=== PATIENT | male | born 1945 | race Caucasian/White ===

== ENCOUNTER 2020-02-24 13:45 | Outpatient (REF) | payer MEDICARE, SELFPAY | END 2020-02-24 13:46 | disposition home or self-care (01) | LOC: HO.LAB 13:45 | PROVIDERS: PCP Internal Medicine; Visit Provider Internal Medicine | DX: Z20.828 Contact with and (suspected) exposure to other viral communicable diseases (principal) | CPT/HCPCS: C9803; U0003 ==

== ENCOUNTER 2020-03-20 13:09 | Outpatient (REF) | payer MEDICARE, SELFPAY | END 2020-03-20 13:10 | disposition home or self-care (01) | LOC: HO.HMGCLDS 13:09 | PROVIDERS: PCP Internal Medicine; Visit Provider Internal Medicine | DX: Z20.828 Contact with and (suspected) exposure to other viral communicable diseases (principal) | CPT/HCPCS: C9803; U0003 ==

== ENCOUNTER → 2020-06-13 07:58 | Outpatient (BNVA) | payer MEDICARE, SELFPAY | PROVIDERS: Visit Provider Orthopaedic Surgery | DX: M25.512 Pain in left shoulder (principal) | CPT/HCPCS: 20610; 99212; J1040 ==

== ENCOUNTER 2020-06-20 06:55 | Outpatient (REF) | payer MEDICARE, SELFPAY ==
[2020-06-20 12:16] LABS: Prostate Specific Antigen 0.79 ng/mL (<0.05-4.0)
[2020-06-20 12:23] LABS: Alanine Aminotransferase 18 U/L (0-40); Anion Gap 15 (12-20); Aspartate Amino Transferase 19 U/L (5-37); Blood Urea Nitrogen 19 mg/dL (9-16); Calcium 8.7 mg/dL (8.4-10.2); Carbon Dioxide 26 mmol/L (22-29); Chloride 104 mmol/L (96-108); Cholesterol 216 mg/dL; Estimated Glomerular Filt Rate > 60; Glucose Fasting 76 mg/dL (60-99); HDL Cholesterol 69 mg/dL; LDL Cholesterol Calculated 135 mg/dl; Potassium 4.9 mmol/L (3.3-5.1); Sodium 140 mmol/L (135-145); Triglycerides 63 mg/dL
== END 2020-06-20 06:56 | disposition home or self-care (01) ==
LOC: HO.HMGCLDS 06:55
PROVIDERS: PCP Internal Medicine; Visit Provider Internal Medicine
DX: E78.5 Hyperlipidemia, unspecified (principal); J45.20 Mild intermittent asthma, uncomplicated; I10 Essential (primary) hypertension; Z12.5 Encounter for screening for malignant neoplasm of prostate
CPT/HCPCS: 36415; 80048; 80061; 84153; 84450; 84460

== ENCOUNTER → 2020-10-03 10:04 | Outpatient (BNVA) | payer MEDICARE, SELFPAY | PROVIDERS: PCP Internal Medicine; Visit Provider Orthopaedic Surgery | DX: M54.12 Radiculopathy, cervical region (principal) | CPT/HCPCS: 99212 ==

== ENCOUNTER → 2020-10-27 08:07 | Outpatient (BNVA) | payer MEDICARE, SELFPAY | PROVIDERS: Visit Provider Orthopaedic Surgery | DX: M75.41 Impingement syndrome of right shoulder (principal) | CPT/HCPCS: 20610; 99212; J1040 ==

== ENCOUNTER 2021-01-01 08:04 | Outpatient (REF) | payer MEDICARE, SELFPAY ==
--- NOTE | ~2021-01-01 | XR_ITS ---
EXAMINATION: XR SHOULDER, RIGHT CLINICAL INFORMATION: Pain COMPARISON: Previous x-ray April 2017 TECHNIQUE: Three views of the right shoulder. FINDINGS: The bones and soft tissues are normal. No fracture. Glenohumeral and acromioclavicular alignment is anatomic with normal joint space. No abnormal soft tissue calcifications. XR/XR shoulder RT min 2V IMPRESSION: Normal right shoulder.
== END 2021-01-01 08:05 | disposition home or self-care (01) ==
LOC: HO.HOSX 08:04
PROVIDERS: PCP Internal Medicine; Visit Provider Orthopaedic Surgery
DX: M12.811 Other specific arthropathies, not elsewhere classified, right shoulder (principal); M54.2 Cervicalgia; M54.9 Dorsalgia, unspecified; Z87.891 Personal history of nicotine dependence
CPT/HCPCS: 73030; 99212

== ENCOUNTER 2021-01-04 08:51 | Outpatient (REF) | payer MEDICARE, SELFPAY ==
--- NOTE | ~2021-01-04 | MR_ITS ---
EXAMINATION: MR SHOULDER WITHOUT CONTRAST, RIGHT CLINICAL INFORMATION: History of right shoulder pain. Prior shoulder surgery. COMPARISON: Shoulder MRI from 05/18/2014. TECHNIQUE: MRI of the shoulder without contrast was performed on a high-field 1.5 Madeline scanner. FINDINGS: ROTATOR CUFF: Some of the imaging sequences are motion degraded. Compared to prior MRI of 05/18/2014, there has been worsening of the supraspinatus tendon tear, which is now full-thickness. The tear in the distal supraspinatus tendon currently measures 1.4 cm AP and 0.9 cm mediolateral dimension. Mild tendinopathy of the infraspinatus without infraspinatus tendon tear. The teres minor tendon is normal. A small, partial thickness tear of the distal, superior fibers of the supraspinatus tendon involves the articular surface at the lesser tuberosity insertion. This small tear measures approximately 0.2 cm AP and 0.4 cm craniocaudal dimension. There has been development of [id number] atrophy and partial fatty replacement of supraspinatus and infraspinatus muscles. Mild fatty replacement also noted within the subscapularis muscle. BICEPS: The long head biceps tendon is suboptimally evaluated on the motion degraded images. There appears to be a mild partial-thickness interstitial tear of the tendon as it courses along the bicipital groove. No full-thickness biceps tear. CORACOACROMIAL ARCH: Compared to 05/10/2014, has been interval acromioplasty. Small amount of fluid is present within the mildly degenerated acromioclavicular joint. There are no large osseous spurs projecting from the inferior margin of the joint. Small amount of fluid is present within the subacromial-subdeltoid bursa but there is no overt synovial thickening of the bursa. LABRUM/CAPSULE: Intact. No evidence of labral tear or labral detachment. No paralabral cysts. The glenohumeral ligament complex is unremarkable. The quadrilateral space, suprascapular notch and spinoglenoid notch have a normal appearance. GLENOHUMERAL JOINT/MARROW: The humeral head is well positioned over the intact glenoid. Articular cartilage of the glenohumeral joint is preserved. Small amount fluid is present within the glenohumeral joint. No humeral bone bruise, fracture or avascular necrosis. MR/MR shoulder RT wo con IMPRESSION: * Interval worsening of the previously observed supraspinatus tendon tear which has become full thickness and is mildly retracted. There is chronic tendinosis of the infraspinatus. There is associated atrophy and partial fatty replacement of the supraspinatus and infraspinatus muscles. * There is a small partial-thickness tear of the distal subscapularis tendon. * Surgical change from acromioplasty. * Small, partial-thickness interstitial tear of the long head biceps tendon.
== END 2021-01-04 08:52 | disposition home or self-care (01) ==
LOC: HO.MRI 08:51
PROVIDERS: PCP Internal Medicine; Visit Provider Orthopaedic Surgery
DX: M12.811 Other specific arthropathies, not elsewhere classified, right shoulder (principal)
CPT/HCPCS: 73221

== ENCOUNTER → 2021-01-08 09:05 | Outpatient (BNVA) | payer MEDICARE, SELFPAY | PROVIDERS: Visit Provider Orthopaedic Surgery | DX: M75.101 Unspecified rotator cuff tear or rupture of right shoulder, not specified as traumatic (principal) | CPT/HCPCS: 99212 ==

== ENCOUNTER 2021-01-31 06:32 | Day surgery (SDC) | payer MEDICARE, SELFPAY ==
[2021-01-24 11:16] VITALS: BMI 22.8
--- NOTE | 2021-01-30 08:53 | HO.ANESPROP2 ---
Documented by User: Tracey Ellison NP 01/30/21 08:55 HPI - Anesthesia Eval Consult details Narrative: 75yo M for Arthroscopic Rotator Cuff Repair *Multiple Allergies* PMFSH Active Problems Active Problems: All Active Problems (Updated 01/24/21 @ 11:45 by Alysia Hale RN) Acute sinusitis (Acute) Rotator cuff impingement syndrome of right shoulder (Acute) Acute sinusitis (Acute) Otitis media (Acute) Rotator cuff arthropathy of right shoulder (Acute) Rotator cuff tear, right (Acute) Retinal vein occlusion of right eye (Acute) Psoriasis (Acute) Spinal stenosis (Acute) Nephrolithiasis (Acute) Essential hypertension (Acute) Glaucoma (Acute) Renal oncocytoma (Acute) BPH (benign prostatic hyperplasia) (Acute) Cervicalgia (Acute) Past Medical History Medical History Alopecia Asthma Basal cell carcinoma BPH (benign prostatic hyperplasia) Cervicalgia COVID-19 vaccine series completed Essential hypertension Glaucoma Inguinal hernia Nephrolithiasis PONV (postoperative nausea and vomiting) Post-nasal drip Psoriasis Renal oncocytoma Retinal vein occlusion of right eye Spinal stenosis Family History Family History Father CVD (cardiovascular disease) HTN (hypertension) Surgical History Surgical History H/O circumcision H/O enucleation of right eyeball H/O left inguinal hernia repair H/O lithotripsy H/O partial nephrectomy H/O rotator cuff surgery H/O ventral hernia repair H/O: vasectomy History of carpal tunnel surgery of right wrist History of cataract surgery History of orchiectomy Hx of cholecystectomy S/P cervical discectomy Social History Social History Are you a primary child care leader to a significant other at home: No Do you presently have visiting nurse or other home services: No Alcohol intake: never Patient Tobacco Use Status: Former Tobacco user Quit Date: 22 yrs ago Tobacco use type: Cigarette Years Smoked: 20 yrs Second Hand Smoke Exposure: No Use of substances other than those prescribed or required for medical reasons: No Have you been hit, kicked, punched, or otherwise hurt by someone within the past year? If so, by whom?: No Are you DNR?: No Advance Directives: No Advance Directives Information Provided: No Advance Directives on File: No (couldn't find) Recently lost weight without trying: No Eating poorly because of decreased appetite: No Nutrition Risks: No Nutritional Risk Meds Allergies Allergy/AdvReac Type Severity Reaction Status Date / Time Fish Containing Products Allergy Severe ANAPHYLAXIS Verified 01/24/21 10:54 hydromorphone [From DILAUDID] Allergy Severe CHILLS,DIAP Verified 01/24/21 10:54 HORESIS povidone-iodine Allergy Severe ANAPHYLAXIS Verified 01/24/21 10:54 [From BETADINE] timolol [TIMOLOL] Allergy Severe ANAPHYLAXIS Verified 01/24/21 10:54 Penicillins [PCN] Allergy Mild Rash Verified 01/30/21 08:45 ENVIROMENTAL Allergy Intermediate HAYFEVER Uncoded 01/24/21 10:54 Lamisil Allergy Unknown Nausea/Dizzy/Airway Uncoded 01/30/21 08:45 trouble Home Medications Medication Instructions Recorded Confirmed Last Taken Type albuterol sulfate mg INHALATION TID PRN 02/11/20 09/25/20 01/31/21 History betamethasone dipropionate 0.05 % TOPICAL 02/11/20 09/25/20 Unknown History topical ointment epinephrine 0.3 mg/0.3 mL IM 02/11/20 09/25/20 Unknown History injection, auto-injector finasteride 5 mg tablet 5 mg PO DAILY 02/11/20 01/24/21 Unknown History fluocinolone 0.01 % scalp oil and 1 ea TOPICAL BID PRN 02/11/20 01/24/21 Unknown History shower cap fluocinonide 0.05 % topical cream 1 applic TOPICAL DAILY 02/11/20 01/24/21 Unknown History fluticasone propionate 50 1 spray INTRANASAL DAILY 02/11/20 01/24/21 01/31/21 History mcg/actuation nasal spray,suspension imiquimod 5 % topical cream packet 1 applic TOPICAL DIRECTED 02/11/20 01/24/21 Unknown History travoprost 0.004 % eye drops 1 drp OPHTHALMIC (EYE) 02/11/20 09/25/20 01/31/21 History dupilumab 200 mg/1.14 mL 200 mg SUBCUT .q month ml 07/17/20 01/24/21 Unknown History subcutaneous syringe levocetirizine 5 mg tablet (Xyzal) 5 mg PO QPM 01/24/21 01/24/21 Unknown History Exam Exam Date and Time: January 30, 2021 0853 Height,Weight and Vital Signs: Height 5 ft 8 in Weight 68.039 kg Assessment and Plan Assessment Anesthesia Assessment: Chart Reviewed Documented by User: Idalia Mills MD 01/31/21 09:29 HPI - Anesthesia Eval Consult details Narrative: 75yo M for Arthroscopic Rotator Cuff Repair Right *Multiple Allergies* PMFSH Past Medical History Medical History Alopecia Asthma Basal cell carcinoma BPH (benign prostatic hyperplasia) Cervicalgia COVID-19 vaccine series completed Essential hypertension Glaucoma Inguinal hernia Nephrolithiasis PONV (postoperative nausea and vomiting) Post-nasal drip Psoriasis Renal oncocytoma Retinal vein occlusion of right eye Spinal stenosis Family History Family History Father CVD (cardiovascular disease) HTN (hypertension) Family history of problems with anesthesia: No Surgical History Surgical History H/O circumcision H/O enucleation of right eyeball H/O left inguinal hernia repair H/O lithotripsy H/O partial nephrectomy H/O rotator cuff surgery H/O ventral hernia repair H/O: vasectomy History of carpal tunnel surgery of right wrist History of cataract surgery History of orchiectomy Hx of cholecystectomy S/P cervical discectomy History of Problems with Anesthesia: Yes (N&V several hours post ESWL ?whether anesthesia related ?passing stone, pain meds) Social History Social History Are you a primary child care leader to a significant other at home: No Do you presently have visiting nurse or other home services: No Alcohol intake: never Patient Tobacco Use Status: Former Tobacco user Quit Date: 22 yrs ago Tobacco use type: Cigarette Years Smoked: 20 yrs Second Hand Smoke Exposure: No Use of substances other than those prescribed or required for medical reasons: No Have you been hit, kicked, punched, or otherwise hurt by someone within the past year? If so, by whom?: No Are you DNR?: No Advance Directives: No Advance Directives Information Provided: No Advance Directives on File: No (couldn't find) Recently lost weight without trying: No Eating poorly because of decreased appetite: No Nutrition Risks: No Nutritional Risk Meds Allergies Allergy/AdvReac Type Severity Reaction Status Date / Time Fish Containing Products Allergy Severe ANAPHYLAXIS Verified 01/24/21 10:54 hydromorphone [From DILAUDID] Allergy Severe CHILLS,DIAP Verified 01/24/21 10:54 HORESIS povidone-iodine Allergy Severe ANAPHYLAXIS Verified 01/24/21 10:54 [From BETADINE] timolol [TIMOLOL] Allergy Severe ANAPHYLAXIS Verified 01/24/21 10:54 Penicillins [PCN] Allergy Mild Rash Verified 01/30/21 08:45 ENVIROMENTAL Allergy Intermediate HAYFEVER Uncoded 01/24/21 10:54 Lamisil Allergy Unknown Nausea/Dizzy/Airway Uncoded 01/30/21 08:45 trouble Home Medications Medication Instructions Recorded Confirmed Last Taken Type albuterol sulfate mg INHALATION TID PRN 02/11/20 09/25/20 01/31/21 History betamethasone dipropionate 0.05 % TOPICAL 02/11/20 09/25/20 Unknown History topical ointment epinephrine 0.3 mg/0.3 mL IM 02/11/20 09/25/20 Unknown History injection, auto-injector finasteride 5 mg tablet 5 mg PO DAILY 02/11/20 01/24/21 Unknown History fluocinolone 0.01 % scalp oil and 1 ea TOPICAL BID PRN 02/11/20 01/24/21 Unknown History shower cap fluocinonide 0.05 % topical cream 1 applic TOPICAL DAILY 02/11/20 01/24/21 Unknown History fluticasone propionate 50 1 spray INTRANASAL DAILY 02/11/20 01/24/21 01/31/21 History mcg/actuation nasal spray,suspension imiquimod 5 % topical cream packet 1 applic TOPICAL DIRECTED 02/11/20 01/24/21 Unknown History travoprost 0.004 % eye drops 1 drp OPHTHALMIC (EYE) 02/11/20 09/25/20 01/31/21 History dupilumab 200 mg/1.14 mL 200 mg SUBCUT .q month ml 07/17/20 01/24/21 Unknown History subcutaneous syringe levocetirizine 5 mg tablet (Xyzal) 5 mg PO QPM 01/24/21 01/24/21 Unknown History Exam Height,Weight and Vital Signs: Height 5 ft 8 in Weight 68.039 kg Vital Signs Temp Pulse Resp BP Pulse Ox 01/31/21 06:45 97.2 F 82 16 141/82 H 96 Airway Mallampati Class: II TM Dist: >3cm Neck ROM: Limited Denture: Upper and Lower Heart: RRR Lungs: CTAB Assessment and Plan Assessment Anesthesia Assessment: Anesthesia Plan Discussed Final Anesthetic Review Family History of Problems with Anesthesia: No History of Problems with Anesthesia: Yes (N&V several hours post ESWL ?whether anesthesia related ?passing stone, pain meds) NPO: Yes ASA Class: II Final Preanesthetic Review: No Changes in Pt Med Stat, Meds/Allgs Chart Reviewed, Consent Obtained/Reviewed and Anes Risks/Benef Reviewed Patient Risk: Intermediate Procedure Risk: Low Assessment/Block/Sedation in SS: Assess/Block/Sedation-SS Anesthetic Plan Anesthetic Plan: GA and Regional Block (Right brachial plexus block) Disposition: Standard PACU
[2021-01-31] VITALS (9 sets, daily range): BP systolic 129–142; BP diastolic 54–82; PULSE 56–82; RESP 16–17; TEMP 36.1–36.2; O2SAT 93–99
[2021-01-31] MEDS: Lactated Ringers 1,000 ML 100 ML IVCONT (07:02)
--- NOTE | 2021-01-31 08:20 | MHC.SHP ---
Pre-Procedural Eval Section A Date of Service: 01/31/21 The patient is an INPATIENT: No Changes since office visit: Yes Patient answered all questions; No Cold of Flu in the past 2 weeks, No New Medical Problems and No Changes in Medication The History & Physical has been completed within 30 days and I have reviewed it.: Yes Section B Chief Complaint: right shoulder arthropathies Allergies: Allergies Allergy/AdvReac Type Severity Reaction Status Date / Time Fish Containing Products Allergy Severe ANAPHYLAXIS Verified 01/24/21 10:54 hydromorphone [From DILAUDID] Allergy Severe CHILLS,DIAP Verified 01/24/21 10:54 HORESIS povidone-iodine Allergy Severe ANAPHYLAXIS Verified 01/24/21 10:54 [From BETADINE] timolol [TIMOLOL] Allergy Severe ANAPHYLAXIS Verified 01/24/21 10:54 Penicillins [PCN] Allergy Mild Rash Verified 01/30/21 08:45 ENVIROMENTAL Allergy Intermediate HAYFEVER Uncoded 01/24/21 10:54 Lamisil Allergy Unknown Nausea/Dizzy/Airway Uncoded 01/30/21 08:45 trouble Plan I have reviewed the history and physical and performed a pertinent physical examination on my patient. No changes have occurred unless specified.
--- NOTE | 2021-01-31 11:02 | P.BOP_ITS ---
Brief Operative Note Date of Service: 01/31/21 Pre-op diagnosis: right rotator cuff tear Post-op diagnosis: same Procedure: rtc repair Implants: [employer] helacoil 4.75 x 2 medial row and 2 lateral row 5.0 helacoil knotless Surgeon: Mauricio Mitchell MD Anesthesia: GETA and regional Was an Traffic Control Signaler used for this Procedure?: Yes Traffic Control Signaler: Lena Rush Estimated blood loss (mL): 20 IV fluids (mL): 1,000 Pathology: none sent Condition: stable Disposition: PACU
--- NOTE | 2021-01-31 11:05 | P.OP_ITS ---
Operative Note Operative Note Date of Service: 01/31/21 Narrative: Pre-op diagnosis: right rotator cuff tear Post-op diagnosis: same Procedure: rtc repair, SAD adn biceps tenotomy Implants: [employer] helacoil 4.75 x 2 medial row and 2 lateral row 5.0 helacoil knotless Surgeon: Mauricio Mitchell MD Anesthesia: GETA and regional Was an [employer] used for this Procedure?: Yes [employer]: Lena Rush Estimated blood loss (mL): 20 IV fluids (mL): 1,000 Pathology: none sent Condition: stable Disposition: PACU Procedure in detail: Patient was brought to the operating room and placed the the beach chair position. All bony prominences were well padded and the limb was prepped and draped in standard sterile fashion. A time out was called to identify proper site, proper procedure and proper surgeon. IV antibiotics per weight were administered. I began by making a posterolateral stab incision with a 15 blade. A blunt trochar was placed into the glenohumeral joint and I insufflated the joint with saline and a 30 degree arthroscope was placed. I established an outside- in an terior portal just distal to the biceps tendon. I then began my inspection of the glenohumeral joint. There was a tear of his biceps tendon just procimal to the subscap with low grade partial tearing the subscapularis insertion. The labral was frayed buy intact and the cartilage surfaces were normal. I performed a biceps tenotomy as the biceps tear was 50% and not repairable. I inspected the undersurface of the cuff and there was full thickness. It was not retracted and there was a intra-substance component posteriorly. I then removed the trochar and entered the subacromial space. A direct lateral portal was then established and I performed a bursectomy. The cuff was then examined. There was a large tear of the supra and infraspinatus that was not retracted and mobile. After I debrided and inspected the cuff I placed 2 medial row anchors and passed the 4 suture limbs from each anchor through the cuff. I then brought these to two lateral row anchors after the bony bed was debrided with a elena. Unfortunately the bone quality was very poor and would only hole one medial row anchor. I placed the sutures from this anchor through the anterior cuff in a mattress orientation and the posterior medial row anchor remained in place. I then brought all free limbs to two lateral Helacoil knotless anchors. There was screw cutout of three anchors given the bone quality and finally had to place the last anchor distally to obtain good fixation. Ultimately there was anatomic recreation of the footprint. I then performed a subacromial decompression using a elena. Approximately 4 mm acromioplasty was performed as his lateral acromion was diminutive but was impinging.Once I was satisfied with the repair final images were captured and I removed all instrumentation. Portals were closed with nylon. Patient was placed in an abduction sling, extubated and brought to the recovery room in stable condition. There were no known complications.
== END 2021-01-31 12:50 | disposition home or self-care (01) ==
PROVIDERS: PCP Internal Medicine; Visit Provider Orthopaedic Surgery
PROC: (CPT 29827; principal; 2021-01-31 08:20)
DX: M75.101 Unspecified rotator cuff tear or rupture of right shoulder, not specified as traumatic (principal); M12.811 Other specific arthropathies, not elsewhere classified, right shoulder; I10 Essential (primary) hypertension; Z79.899 Other long term (current) drug therapy; Z88.0 Allergy status to penicillin; Z88.8 Allergy status to other drugs, medicaments and biological substances; Z87.891 Personal history of nicotine dependence
CPT/HCPCS: 29827; 29826; C1713; J0171; J0690; J1100; J2250; J2405; J3010

== ENCOUNTER → 2021-02-12 11:14 | Outpatient (BNVA) | payer MEDICARE, SELFPAY | PROVIDERS: PCP Internal Medicine; Visit Provider Physician Assistant | DX: Z98.890 Other specified postprocedural states (principal) | CPT/HCPCS: 99212 ==

== ENCOUNTER → 2021-03-12 13:03 | Outpatient (BNVA) | payer MEDICARE, SELFPAY | PROVIDERS: Visit Provider Physician Assistant | DX: Z98.890 Other specified postprocedural states (principal) | CPT/HCPCS: 99212 ==

== ENCOUNTER → 2021-04-23 09:37 | Outpatient (BNVA) | payer MEDICARE, SELFPAY | PROVIDERS: PCP Internal Medicine; Visit Provider Orthopaedic Surgery | DX: Z98.890 Other specified postprocedural states (principal) | CPT/HCPCS: 99212 ==

== ENCOUNTER 2021-04-27 10:00 | Outpatient (RCR) | payer MEDICARE, SELFPAY ==
--- NOTE | 2021-02-13 09:52 | MHC.PT.EP ---
[facility] [place] Office [place] Office [place] Office [address] Felicitas Vera [address] [phone] F: [phone] F: [phone] F: [phone] F: [phone] Physical Therapy Plan of Care Date of Evaluation: Date of Surgery: 01/31/21 Diagnosis: R RTC repair DOS: 01/31/21 Assessment: Pt is a 75 y/o male referred to PT for eval and treat of R RTC repair performed on 01/31/21 for traumatic tear following fishing injury resulting in inability to reach high shelves as well as his back and neck for hygiene, dressing pullovers, pushing, pulling, and carrying, as well as disturbed sleep secondary to decreased R shoulder ROM and strength, decreased posture, surgical healing process, and pain. Pt is highly motivated and is deemed an appropriate candidate to receive skilled PT services to address his physical impairments in order to improve his functional ability. Frequency and Duration: The patient will be seen 2 x/ wk x 12 wks. Short Term Goals: In 6 weeks full WFL ROM achieved: PROM flexion at least 120 degrees. initiate HEP with evidence of compliance. 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 In 12 weeks: Pt will be able to place light objects on high shelf. In 12 weeks: Pt will be able to dress [pullovers with managed Sx. Treatment Plan: Modalities to reduce pain, spasms and effusion. Manual therapy to restore motion and function. Therapeutic exercise to improve strength and flexibility. Neuromuscular re-education for posture and balance. Therapeutic activities to return to functional activities of daily living. Electronically signed by: Please sign and return to therapist. Thank you for your referral.
--- NOTE | 2021-05-07 10:06 | MHC.PT.OD ---
[facility] [place] Office [place] Office [place] Office [address] Felicitas Vera [address] [phone] F: [phone] F: [phone] F: [phone] F: [phone] Physical Therapy Daily Note Diagnosis: R RTC repair DOS: 01/31/21 Date of Surgery: 01/31/21 Date of Evaluation: 02/07/21 Date of Treatment: 04/27/21 Treatments to Date: 16 Cancellations to Date: 0 No Shows to Date: 0 Authorized Visits: Insurance End Date: Precautions/ Contraindications:R RTC Repair Subjective: -04/27: Reports he feels good today. - Pt reports f/u went well. Pt has f/u in 3 weeks; Pt reports he is still having issues with flexion and in the AM he is very stiff. I have really been working my ROM and it is feeling a little better just still feels weak (same report) Presents w/o sling as DC'd from ortho. Pain Score and Location: 5 R RTC repair. Objective Flowsheet: Tests & Measures 02/27: Supine PROM: flexion 120, ER 40, ABD 80. Shd supine PROM: flexion 112, ER 35, abd 44 Exercises UBE 5/5 LVL 2 (10 min) -1/2 kneeling overhead row x 20 x 3. 25# one handle -SH row and extension 40#/ 30# spd. B biceps curl x 10 x 3 4# - ER 5# SPD PLY x 10 x 3. - IR 15# SPD PLY x 10 x 3. -B overhead press to touch wall with ecc lowering x 5 x 5 sets. (NOT TODAY) -Pball on wall head height up, down, up and overs, x 1 min x 3 sets. -Supine B ER with Y TB overhead press x 5 x 5 sets. (NOT TODAY) -AROM scaption x 5 x 4 sets. (about 70-degrees AROM achieved) -SL abd x 5 x 5 sets. 2# Cup stacking/ placing at chest height Difficulty d/t tremor and appropriate fatigue. PROM: flexion, abd (in scap plane at 40 deg abd: ER to neutral, IR); pain-free PROM, LAD, inf capsule mob. Modalities Assessment: Juve has been an active and motivated participant in his therapy in and out of the clinic; he has achieved most of his therapeutic goals; is managed of his pain; I of his home program. PT and Pt in agreement with DC at this time. PT Plan: RTC repair (supra/ infra spinatus with biceps tneotomy). 04/24: per MD 75 deg AROM flexion good enough for function and encourage healing, no > 2# abd. Short Term Goals: In 6 weeks full WFL ROM achieved: PROM flexion at least 120 degrees. initiate HEP with evidence of compliance. Intermediate Goals: In 12 weeks: I with HEP. In 12 weeks: Pt will be able to place light objects on high shelf. In 12 weeks: Pt will be able to dress [pullovers with managed Sx. Electronically signed by: Rubens Anderson PT.
== END 2021-05-07 10:05 | disposition home or self-care (01) ==
LOC: HO.PTCHIC 10:00
PROVIDERS: PCP Internal Medicine; Visit Provider Orthopaedic Surgery
DX: Z98.890 Other specified postprocedural states (principal)
CPT/HCPCS: 97110; 97140; 97150; 97161; 97530

== ENCOUNTER 2021-07-03 06:28 | Outpatient (REF) | payer MEDICARE, SELFPAY ==
[2021-07-03 12:21] LABS: Alanine Aminotransferase 20 U/L (0-40); Anion Gap 13 (12-20); Aspartate Amino Transferase 21 U/L (5-37); Blood Urea Nitrogen 16 mg/dL (9-16); Calcium 9.5 mg/dL (8.4-10.2); Carbon Dioxide 26 mmol/L (22-29); Chloride 106 mmol/L (96-108); Cholesterol 192 mg/dL; Estimated Glomerular Filt Rate > 60; Glucose Fasting 91 mg/dL (60-99); HDL Cholesterol 58 mg/dL; LDL Cholesterol Calculated 119 mg/dl; Potassium 4.8 mmol/L (3.3-5.1); Sodium 140 mmol/L (135-145); Triglycerides 76 mg/dL
[2021-07-03 12:23] LABS: Blood Urea Nitrogen 15 mg/dL (9-16); Estimated Glomerular Filt Rate > 60
[2021-07-03 12:26] LABS: Vitamin D 25-OH Total 33.3 ng/mL (>30)
== END 2021-07-03 06:29 | disposition home or self-care (01) ==
LOC: HO.HMGCLDS 06:28
PROVIDERS: PCP Internal Medicine; Visit Provider Urology
DX: N20.0 Calculus of kidney (principal); I10 Essential (primary) hypertension
CPT/HCPCS: 36415; 80048; 80061; 82306; 82565; 84450; 84460; 84520

== ENCOUNTER → 2021-07-23 08:15 | Outpatient (BNVA) | payer MEDICARE, SELFPAY | PROVIDERS: PCP Internal Medicine; Visit Provider Orthopaedic Surgery | DX: Z47.89 Encounter for other orthopedic aftercare (principal) | CPT/HCPCS: 99212 ==

== ENCOUNTER 2021-10-04 13:29 | Outpatient (REF) | payer MEDICARE, SELFPAY ==
[2021-10-04 17:05] LABS: Alanine Aminotransferase 35 U/L (0-40); Anion Gap 13 (12-20); Aspartate Amino Transferase 27 U/L (5-37); Blood Urea Nitrogen 16 mg/dL (9-16); Calcium 9.4 mg/dL (8.4-10.2); Carbon Dioxide 26 mmol/L (22-29); Chloride 104 mmol/L (96-108); Cholesterol 197 mg/dL; Creatinine Clr Calc Pharmacy 69.6; Estimated Glomerular Filt Rate > 60; Glucose Fasting 94 mg/dL (60-99); HDL Cholesterol 52 mg/dL; LDL Cholesterol Calculated 127 mg/dl; Potassium 4.7 mmol/L (3.3-5.1); Sodium 138 mmol/L (135-145); Triglycerides 94 mg/dL
[2021-10-04 17:25] LABS: Vitamin D 25-OH Total 35.8 ng/mL (>30)
== END 2021-10-04 13:30 | disposition home or self-care (01) ==
LOC: HO.HMGCLDS 13:29
PROVIDERS: Visit Provider Internal Medicine
DX: I10 Essential (primary) hypertension (principal)
CPT/HCPCS: 36415; 80048; 80061; 82306; 84450; 84460

== ENCOUNTER 2021-10-04 14:18 | Outpatient (REF) | payer MEDICARE, SELFPAY ==
--- NOTE | ~2021-10-04 | CT_ITS ---
EXAMINATION: CT ABDOMEN AND PELVIS WITHOUT CONTRAST CLINICAL INFORMATION: Left lower quadrant pain COMPARISON: Previous CT of the abdomen and pelvis most recent May 2018 TECHNIQUE: Multidetector volumetric imaging was performed from the superior aspect of the liver through the pubic symphysis. Sagittal and coronal reformatted images were obtained on the technologist's workstation. This CT examination was performed using dose optimization techniques as appropriate, variously including the following: *Automated exposure control *Adjustment of mA and/or kV according to patient size (this includes techniques or standardized protocols for targeted exams where dose is matched to indication/reason for exam; i.e. extremities or head) *Use of iterative reconstruction technique DLP: 338 mGy-cm FINDINGS: LUNG BASES: There are small bilateral lower lobe pulmonary nodules. Largest pulmonary nodule measures 4 mm in the right lower lobe axial image 4 series 3. These are stable from previous CT May 2018. LIVER, GALLBLADDER, AND BILIARY TREE: The liver is normal in size, shape, and attenuation. No focal hepatic lesion or biliary ductal dilatation is present. The gallbladder is is not seen and has presumably been removed. PANCREAS: Unremarkable. SPLEEN: Unremarkable. ADRENAL GLANDS: Unremarkable. KIDNEYS AND URETERS: There is a 4.7 x 4.7 x 5.7 cm mass lower pole of the left kidney suggestive of neoplasm. This measured 4.7 x 4.7 x 5 cm in dimension May 2018. There is focal cortical thinning or scarring right kidney. There are 2 small right renal stones largest measuring 3 mm. The previously identified left renal stones are no longer seen. BLADDER: Unremarkable. GASTROINTESTINAL TRACT: There is stool throughout the colon suggestive of constipation. The small and large bowel are otherwise unremarkable. The appendix is unremarkable. ABDOMINAL WALL: There is evidence of anterior abdominal wall hernia repair with mesh. There is a small right inguinal hernia containing fat. LYMPH NODES: Normal. VASCULAR: There is evidence of atherosclerotic disease. No aneurysm is seen. PELVIC VISCERA: Unremarkable. OSSEOUS STRUCTURES: Unremarkable. CT/CT abdomen pelvis wo con IMPRESSION: Slight interval increase in size in the left renal mass. Small right stones. No hydronephrosis. Constipation. Stable small bilateral lower lobe pulmonary nodules. Fleischner guidelines were followed.
== END 2021-10-04 14:19 | disposition home or self-care (01) ==
LOC: HO.CT 14:18
PROVIDERS: PCP Internal Medicine; Visit Provider Internal Medicine
DX: R10.32 Left lower quadrant pain (principal); R53.83 Other fatigue; D30.00 Benign neoplasm of unspecified kidney
CPT/HCPCS: 36415; 74176; 80048; 80061; 82306; 84450; 84460

== ENCOUNTER → 2021-10-26 09:07 | Outpatient (BNVA) | payer MEDICARE, SELFPAY | PROVIDERS: PCP Internal Medicine; Visit Provider Orthopaedic Surgery | DX: Z09 Encounter for follow-up examination after completed treatment for conditions other than malignant neoplasm (principal) | CPT/HCPCS: 99212 ==

== ENCOUNTER 2022-01-30 06:13 | Outpatient (REF) | payer MEDICARE, SELFPAY ==
[2022-01-30 11:50] LABS: Alanine Aminotransferase 20 U/L (0-40); Anion Gap 14 (12-20); Aspartate Amino Transferase 20 U/L (5-37); Blood Urea Nitrogen 18 mg/dL (9-16); Calcium 9.2 mg/dL (8.4-10.2); Carbon Dioxide 25 mmol/L (22-29); Chloride 106 mmol/L (96-108); Cholesterol 181 mg/dL; Estimated Glomerular Filt Rate > 60; Glucose Fasting 98 mg/dL (60-99); HDL Cholesterol 58 mg/dL; LDL Cholesterol Calculated 109 mg/dl; Potassium 4.7 mmol/L (3.3-5.1); Sodium 140 mmol/L (135-145); Triglycerides 70 mg/dL
== END 2022-01-30 06:14 | disposition home or self-care (01) ==
LOC: HO.HMGCLDS 06:13
PROVIDERS: PCP Internal Medicine; Visit Provider Internal Medicine
DX: I10 Essential (primary) hypertension (principal)
CPT/HCPCS: 36415; 80048; 80061; 84450; 84460

== ENCOUNTER → 2022-02-14 13:19 | Outpatient (BNVA) | payer MEDICARE, SELFPAY | PROVIDERS: PCP Internal Medicine; Visit Provider Orthopaedic Surgery | DX: M19.012 Primary osteoarthritis, left shoulder (principal) | CPT/HCPCS: 20610; 99212; J1100 ==

== ENCOUNTER 2022-02-28 11:02 | Outpatient (REF) | payer MEDICARE, SELFPAY ==
[2022-02-28 11:55] LABS: Influenza A PCR NEGATIVE (Negative); Influenza B PCR NEGATIVE (Negative); Resp Syncy Virus RNA Qual PCR NEGATIVE (Negative); SARS COV2 PCR INHOUSE NEGATIVE (Negative)
== END 2022-02-28 11:03 | disposition home or self-care (01) ==
LOC: HO.LNP 11:02
PROVIDERS: Visit Provider Physician Assistant Medical
DX: R05.9 Cough, unspecified (principal); Z20.822 Contact with and (suspected) exposure to COVID-19
CPT/HCPCS: 0241U

== ENCOUNTER 2022-03-18 08:55 | Outpatient (REF) | payer MEDICARE, SELFPAY ==
--- NOTE | ~2022-03-18 | XR_ITS ---
EXAMINATION: XR SHOULDER, LEFT CLINICAL INFORMATION: Shoulder pain COMPARISON: Left shoulder radiographs 10/26/2019. TECHNIQUE: Left shoulder is imaged in 3 views. FINDINGS: There are 3 orthopedic anchors overlying the superolateral humeral head. Hardware is intact. No destructive process or osteolysis. No fracture or dislocation. The acromioclavicular alignment is normal. The glenohumeral joint is unremarkable. The lateral view shows some fine linear calcification just superior to humeral head which may represent chondrocalcinosis articular cartilage or fine calcific tendinosis. XR/XR shoulder LT min 2V IMPRESSION: 1. Postsurgical changes. Hardware intact. No destructive process or osteolysis. 2. Faint short linear calcification just superior to humeral head which may represent chondrocalcinosis articular cartilage or fine calcific tendinosis.
== END 2022-03-18 08:56 | disposition home or self-care (01) ==
LOC: HO.HOSX 08:55
PROVIDERS: Visit Provider Orthopaedic Surgery
DX: M25.512 Pain in left shoulder (principal); Z98.890 Other specified postprocedural states
CPT/HCPCS: 73030; 99212

== ENCOUNTER 2022-03-27 13:29 | Outpatient (REF) | payer MEDICARE, SELFPAY ==
--- NOTE | ~2022-03-27 | MR_ITS ---
EXAMINATION: MRI LEFT SHOULDER WITHOUT CONTRAST CLINICAL INFORMATION: Z98.890 - Other specified postprocedural states; status post rotator cuff repair 14 years ago. Left shoulder pain. No recent injury. COMPARISON: Radiographs dated 03/18/2022. TECHNIQUE: MR images of the shoulder were obtained on a 1.5 Madeline high-field strength scanner without intravenous contrast material. FINDINGS: ROTATOR CUFF: Two soft tissue anchors at the greater tuberosity are consistent with prior rotator cuff repair. The supraspinatus tendon is torn at the greater tuberosity with retraction to the level of the apex of the humeral head (2.4 cm). The supraspinatus tendon component of this tear measures 2 cm AP. The tear involves the anterior fibers of the infraspinatus tendon and also extends anteriorly through the rotator interval into the subscapularis tendon. The majority of the infraspinatus tendon remains intact. The subscapularis tendon is largely disrupted with a thin residual band of bursal-sided fibers remaining intact at the inferior aspect of the lesser tuberosity. This subscapularis component of the tear measures approximately 1.5 cm craniocaudal with medial retraction of torn fibers up to 2.2 cm medially. Overall, this tear measures approximately 4.5 cm AP along the insertions of the subscapularis, supraspinatus, and infraspinatus. There is moderate atrophy of the subscapularis muscle with grade 2 fatty replacement. More mild atrophy and grade 1 fatty replacement are evident at the supraspinatus and infraspinatus muscles. Teres minor muscle and tendon are normal. BICEPS: The intra-articular portion of the biceps tendon is not well seen, though tendinosis and partial tearing are suspected in this region. A longitudinal partial tear from the intra-articular extent of the tendon continues into the proximal bicipital groove. CORACOACROMIAL ARCH: The undersurface of the acromion is remodeled as a result of the prior acromioplasty. Small residual or recurrent lateral acromial spurs are noted. No appreciable anterior spurs. Blunting of the undersurface of the distal clavicle is consistent with prior distal clavicular resection. Low signal intensity fibrotic tissue in the region of the subacromial-subdeltoid bursa likely corresponds to changes of a prior bursectomy. Trace bursal fluid in this region. LABRUM/CAPSULE: The labrum is blunted posterosuperiorly with a linear band of abnormal signal intensity, most consistent with a degenerative tear. There is fraying of the glenoid labrum anteroinferiorly. Joint capsule is intact at the axillary pouch. The capsule is disrupted at the rotator interval anterosuperiorly involving both the superior glenohumeral and middle glenohumeral ligaments at the humeral attachments as well as the coracohumeral ligament attachment. GLENOHUMERAL JOINT/MARROW: No acute fracture or malalignment. Metal artifact arises from the soft tissue anchors at the greater tuberosity. Articular cartilage is largely appears well preserved, likely with the exception of mild chondral thinning along the posterosuperior glenoid. No discrete defects are identified. No joint effusion or significant loose bodies. MR/MR shoulder LT wo con IMPRESSION: 1. Recurrent full-thickness, complete tear of the supraspinatus tendon and a near-complete tear of the subscapularis tendon with involvement of the anterior fibers of the infraspinatus. Moderate subscapularis muscle atrophy and more mild supraspinatus and infraspinatus muscle atrophy. 2. Intra-articular partial tear of the biceps tendon. 3. Minimal glenohumeral osteoarthritis with degenerative tearing of the posterosuperior labrum. 4. Prior acromioplasty and distal clavicular resection.
== END 2022-03-27 13:30 | disposition home or self-care (01) ==
LOC: HO.MRI 13:29
PROVIDERS: Visit Provider Orthopaedic Surgery
DX: M25.512 Pain in left shoulder (principal); Z98.890 Other specified postprocedural states
CPT/HCPCS: 73221

== ENCOUNTER → 2022-04-01 09:15 | Outpatient (BNVA) | payer MEDICARE, SELFPAY | PROVIDERS: PCP Internal Medicine; Visit Provider Orthopaedic Surgery | DX: M75.102 Unspecified rotator cuff tear or rupture of left shoulder, not specified as traumatic (principal); M12.812 Other specific arthropathies, not elsewhere classified, left shoulder | CPT/HCPCS: 99212 ==

== ENCOUNTER 2022-04-24 05:57 | Day surgery (SDC) | payer MEDICARE, SELFPAY ==
--- NOTE | 2022-04-09 09:43 | ECG_ITS ---
Test Reason : PREOP Blood Pressure : / mmHG Vent. Rate : 076 BPM Atrial Rate : 076 BPM P-R Int : 194 ms QRS Dur : 124 ms QT Int : 380 ms P-R-T Axes : 068 172 020 degrees QTc Int : 427 ms Normal sinus rhythm Right bundle branch block Abnormal ECG No previous ECGs available Referred By: Mauricio Mitchell Electronically Signed By:Juno Borjas
[2022-04-17 13:55] VITALS: BMI 22.8
--- NOTE | 2022-04-23 08:16 | HO.ANESPROP2 ---
Documented by User: Tracey Ellison NP 04/23/22 09:35 HPI - Anesthesia Eval Consult details Narrative: 77yo M for Left Arthroscopic Rotator Cuff Repair s/p right repair 01/2021 with GA-ETT 7.5 and block PMFSH Active Problems Active Problems: All Active Problems (Updated 04/17/22 @ 13:55 by Alysia Hale RN) Rotator cuff impingement syndrome of right shoulder (Acute) Otitis media (Acute) Rotator cuff arthropathy of right shoulder (Acute) Rotator cuff tear, right (Acute) S/P rotator cuff repair (Acute) Allergic rhinitis (Acute) [place] eye disease of left eye (Acute) Recurrent left lower quadrant abdominal pain (Acute) Arthropathy of left shoulder (Acute) Rotator cuff tear arthropathy of left shoulder (Acute) Mild intermittent asthma (Acute) Tremor of both hands (Acute) Retinal vein occlusion of right eye (Acute) Psoriasis (Acute) Spinal stenosis (Acute) Nephrolithiasis (Acute) Essential hypertension (Acute) Glaucoma (Acute) Renal oncocytoma (Acute) BPH (benign prostatic hyperplasia) (Acute) Cervicalgia (Acute) Past Medical History Medical History Alopecia Asthma Basal cell carcinoma BPH (benign prostatic hyperplasia) Cervicalgia COVID-19 vaccine series completed Essential hypertension Glaucoma History of eye prosthesis Inguinal hernia Mild intermittent asthma Nephrolithiasis PONV (postoperative nausea and vomiting) Post-nasal drip Psoriasis RBBB (right bundle branch block) Renal oncocytoma Retinal vein occlusion of right eye Spinal stenosis Tremor of both hands Family History Family History Father CVD (cardiovascular disease) HTN (hypertension) Family history of problems with anesthesia: No Surgical History Surgical History H/O circumcision H/O enucleation of right eyeball H/O left inguinal hernia repair H/O lithotripsy H/O partial nephrectomy H/O rotator cuff surgery H/O ventral hernia repair H/O: vasectomy History of carpal tunnel surgery of right wrist History of cataract surgery History of orchiectomy Hx of cholecystectomy Hx of repair of right rotator cuff S/P cervical discectomy History of Problems with Anesthesia: Yes Social History Social History Housing: House Are you a primary hospice care transitions coordinator to a significant other at home: No Do you presently have visiting nurse or other home services: No Alcohol intake: never Patient Tobacco Use Status: Former Tobacco user Quit Date: 23 yrs ago Tobacco use type: Cigarette Years Smoked: 20 yrs e-Cigarette/Vaping Use: Never Used Second Hand Smoke Exposure: No Use of substances other than those prescribed or required for medical reasons: No Have you been hit, kicked, punched, or otherwise hurt by someone within the past year? If so, by whom?: No Are you DNR?: No Advance Directives: No Advance Directives Information Provided: Yes Advance Directives on File: No Recently lost weight without trying: No Eating poorly because of decreased appetite: No Nutrition Risks: No Nutritional Risk service: No Current occupational status: retired Current occupation: lt handed Cognitive needs: No Hearing needs: No Vision needs: Yes Meds Allergies Allergy/AdvReac Type Severity Reaction Status Date / Time Fish Containing Products Allergy Severe ANAPHYLAXIS Verified 04/17/22 13:39 hydromorphone [From DILAUDID] Allergy Severe CHILLS,DIAP Verified 04/17/22 13:39 HORESIS povidone-iodine Allergy Severe ANAPHYLAXIS Verified 04/17/22 13:39 [From BETADINE] timolol [TIMOLOL] Allergy Severe ANAPHYLAXIS Verified 04/17/22 13:39 ENVIROMENTAL Allergy Intermediate HAYFEVER Uncoded 04/17/22 13:39 Lamisil Allergy Unknown Nausea/Dizzy/Airway Uncoded 04/17/22 13:39 trouble Home Medications Medication Instructions Recorded Confirmed Last Taken Type betamethasone dipropionate 0.05 % topical 02/11/20 07/17/21 Unknown History topical ointment finasteride 5 mg tablet 5 mg PO DAILY 02/11/20 04/17/22 Unknown History fluocinonide 0.05 % topical cream 1 applic topical DAILY 02/11/20 04/17/22 Unknown History imiquimod 5 % topical cream packet 1 applic topical DIRECTED 02/11/20 04/17/22 Unknown History travoprost 0.004 % eye drops 1 drp ophthalmic (eye) 02/11/20 07/17/21 01/31/21 History dupilumab 200 mg/1.14 mL 200 mg subcut .q month 07/17/20 04/17/22 Unknown History subcutaneous syringe levocetirizine 5 mg tablet (Xyzal) 5 mg PO QPM 01/24/21 04/17/22 Unknown History alclometasone 0.05 % topical cream appl topical 03/12/21 07/17/21 Unknown History valacyclovir 500 mg tablet mg PO 03/12/21 07/17/21 Unknown History Exam Exam Date and Time: April 23, 2022 0816 Height,Weight and Vital Signs: Height 5 ft 8 in Weight 68.039 kg Pertinent Lab Results Pertinent Lab Results: Laboratory Tests 01/30/22 06:24 Sodium 140 Potassium 4.7 Chloride 106 Carbon Dioxide 25 BUN 18 H Creatinine 0.87 Narrative Narrative: EKG 03/2022 Vent. Rate : 076 BPM ? ? Atrial Rate : 076 BPM ?? P-R Int : 194 ms? QRS Dur : 124 ms ? ? QT Int : 380 ms ? ? ? P-R-T Axes : 068 172 020 degrees ?? QTc Int : 427 ms ? Normal sinus rhythm Right bundle branch block Abnormal ECG No previous ECGs available Assessment and Plan Assessment Anesthesia Assessment: Chart Reviewed Final Anesthetic Review Family History of Problems with Anesthesia: No History of Problems with Anesthesia: Yes Documented by User: Petrona Judge MD 04/24/22 07:07 [facility] Past Medical History Medical History Alopecia Asthma Basal cell carcinoma BPH (benign prostatic hyperplasia) Cervicalgia COVID-19 vaccine series completed Essential hypertension Glaucoma History of eye prosthesis Inguinal hernia Mild intermittent asthma Nephrolithiasis PONV (postoperative nausea and vomiting) Post-nasal drip Psoriasis RBBB (right bundle branch block) Renal oncocytoma Retinal vein occlusion of right eye Spinal stenosis Tremor of both hands Functional capacity: independent ambulation Family History Family History Father CVD (cardiovascular disease) HTN (hypertension) Surgical History Surgical History H/O circumcision H/O enucleation of right eyeball H/O left inguinal hernia repair H/O lithotripsy H/O partial nephrectomy H/O rotator cuff surgery H/O ventral hernia repair H/O: vasectomy History of carpal tunnel surgery of right wrist History of cataract surgery History of orchiectomy Hx of cholecystectomy Hx of repair of right rotator cuff S/P cervical discectomy Social History Social History Housing: House Are you a primary hospice care transitions coordinator to a significant other at home: No Do you presently have visiting nurse or other home services: No Alcohol intake: never Patient Tobacco Use Status: Former Tobacco user Quit Date: 23 yrs ago Tobacco use type: Cigarette Years Smoked: 20 yrs e-Cigarette/Vaping Use: Never Used Second Hand Smoke Exposure: No Use of substances other than those prescribed or required for medical reasons: No Have you been hit, kicked, punched, or otherwise hurt by someone within the past year? If so, by whom?: No Are you DNR?: No Advance Directives: No Advance Directives Information Provided: Yes Advance Directives on File: No Recently lost weight without trying: No Eating poorly because of decreased appetite: No Nutrition Risks: No Nutritional Risk service: No Current occupational status: retired Current occupation: lt handed Cognitive needs: No Hearing needs: No Vision needs: Yes Meds Allergies Allergy/AdvReac Type Severity Reaction Status Date / Time Fish Containing Products Allergy Severe ANAPHYLAXIS Verified 04/17/22 13:39 hydromorphone [From DILAUDID] Allergy Severe CHILLS,DIAP Verified 04/17/22 13:39 HORESIS povidone-iodine Allergy Severe ANAPHYLAXIS Verified 04/17/22 13:39 [From BETADINE] timolol [TIMOLOL] Allergy Severe ANAPHYLAXIS Verified 04/17/22 13:39 ENVIROMENTAL Allergy Intermediate HAYFEVER Uncoded 04/17/22 13:39 Lamisil Allergy Unknown Nausea/Dizzy/Airway Uncoded 04/17/22 13:39 trouble Home Medications Medication Instructions Recorded Confirmed Last Taken Type betamethasone dipropionate 0.05 % topical 02/11/20 07/17/21 Unknown History topical ointment finasteride 5 mg tablet 5 mg PO DAILY 02/11/20 04/17/22 Unknown History fluocinonide 0.05 % topical cream 1 applic topical DAILY 02/11/20 04/17/22 Unknown History imiquimod 5 % topical cream packet 1 applic topical DIRECTED 02/11/20 04/17/22 Unknown History travoprost 0.004 % eye drops 1 drp ophthalmic (eye) 02/11/20 07/17/21 01/31/21 History dupilumab 200 mg/1.14 mL 200 mg subcut .q month 07/17/20 04/17/22 Unknown History subcutaneous syringe levocetirizine 5 mg tablet (Xyzal) 5 mg PO QPM 01/24/21 04/17/22 Unknown History alclometasone 0.05 % topical cream appl topical 03/12/21 07/17/21 Unknown History valacyclovir 500 mg tablet mg PO 03/12/21 07/17/21 Unknown History Exam Airway Mallampati Class: II TM Dist: >3cm Neck ROM: Full Denture: Upper and Lower Heart: RRR Lungs: CTA Assessment and Plan Final Anesthetic Review ASA Class: II Final Preanesthetic Review: No Changes in Pt Med Stat, Meds/Allgs Chart Reviewed, Consent Obtained/Reviewed and Anes Risks/Benef Reviewed Patient Risk: Intermediate Procedure Risk: Low Anesthetic Plan Anesthetic Plan: GA and Neuraxial Block: Disposition: Standard PACU
[2022-04-24] VITALS (8 sets, daily range): BP systolic 124–143; BP diastolic 71–81; PULSE 66–85; RESP 16–18; TEMP 36.3–36.4; O2SAT 98–100
[2022-04-24] MEDS: Lactated Ringers 1,000 ML 100 ML IVCONT (06:39)
--- NOTE | 2022-04-24 07:38 | MHC.SHP ---
Pre-Procedural Eval Section A Date of Service: 04/24/22 The patient is an INPATIENT: No Changes since office visit: No Cold of Flu in the past 2 weeks, No New Medical Problems, No Changes in Medication and No Patient answered all questions The History & Physical has been completed within 30 days and I have reviewed it.: Yes Section B Chief Complaint: Unspecified rotator cuff tear or rupture of left Allergies: Allergies Allergy/AdvReac Type Severity Reaction Status Date / Time Fish Containing Products Allergy Severe ANAPHYLAXIS Verified 04/17/22 13:39 hydromorphone [From DILAUDID] Allergy Severe CHILLS,DIAP Verified 04/17/22 13:39 HORESIS povidone-iodine Allergy Severe ANAPHYLAXIS Verified 04/17/22 13:39 [From BETADINE] timolol [TIMOLOL] Allergy Severe ANAPHYLAXIS Verified 04/17/22 13:39 ENVIROMENTAL Allergy Intermediate HAYFEVER Uncoded 04/17/22 13:39 Lamisil Allergy Unknown Nausea/Dizzy/Airway Uncoded 04/17/22 13:39 trouble Plan I have reviewed the history and physical and performed a pertinent physical examination on my patient. No changes have occurred unless specified. Time Spent With Patient Time: Total time managing care of this patient today ____ minutes.
--- NOTE | 2022-04-24 10:13 | PM.OP ---
Brief Operative Note Date of Service: 04/24/22 Pre-op diagnosis: Left Shoulder recurtrent rotator cuff tear Post-op diagnosis: same Procedure: Left choulder revision rotator cuff repair with SAD and biceps tenotomy Surgeon: Mauricio Mitchell MD Anesthesia: GETA Was an House Steward/Stewardess used for this Procedure?: No Estimated blood loss (mL): 15 IV fluids (mL): 1,000 Pathology: none sent Condition: stable Disposition: PACU
--- NOTE | 2022-04-24 10:15 | P.OP_ITS ---
Operative Note Operative Note Date of Service: 04/24/22 Narrative: Date of Service: 04/24/22 Pre-op diagnosis: Left Shoulder recurrent rotator cuff tear Post-op diagnosis: same Procedure: Left Shoulder revision rotator cuff repair with SAD and biceps tenotomy Surgeon: Mauricio Mitchell MD Anesthesia: GETA Was an Animal Nutrition Consultant used for this Procedure?: No Estimated blood loss (mL): 15 IV fluids (mL): 1,000 Pathology: none sent Condition: stable Disposition: PACU Procedure in detail: Patient was brought to the operating room and placed the the beach chair position. All bony prominences were well padded and the limb was prepped and draped in standard sterile fashion. A time out was called to identify proper site, proper procedure and proper surgeon. IV antibiotics per weight were administered. I began by making a posterolateral stab incision with a 15 blade. A blunt trochar was placed into the glenohumeral joint and I insufflated the joint with saline and a 30 degree arthroscope was placed. I established an outside- in anterior portal just distal to the biceps tendon. I then began my inspection of the glenohumeral joint. There was 80% of the biceps that was torn at the labral anchor with minimal associated degenerative tearing of the labrum. There was G1 changes at the inferior glenoid without associated humeral head changes. There was a full thickness undersurface RTC tear. The subcapularis was partially torn at its humeral insertion but minimally so. I debrided the loose cartilage of the glenoid and the degenerative labral tearing and performed a biceps tenotomy. I then removed the trochar and entered the subacromial space. A direct lateral portal was then established and I performed a bursectomy. The cuff was then examined. There was a full thickness tear of the supraspinatus WITH adhesioins to the bursa. I established a second lateral portal and debrided the non biable tissuie and the bursa. There were three metal suture anchors in the bare area with residual suture in the cuff . The tissue was of better quality than I would have thought and it was mobile. I removed one of the metal anchors and the other 2 were not movable but were also flush with the bone and so were left intact. I then placed two medial row double loaded 4.75 Armenta and Nephew anchors and then brought the sutures through the medial cuff. . I then debrided the bare area down to bleeding bone and, using a cross bridge configuration, brought four limbs to each of two lateral 5.5 anchors. THe bone was of poor quality but anterior and posteriorly I was able to place two anchors with excellent compression of the cuff over the bare area.This re-approximated the cuff anatomy near anatomically. I then performed a 5 mm subacromial decompression. Once I was satisfied with the repair final images were captured and I removed all instrumentation. Portals were closed with nylon. Patient was placed in an abduction sling, extubated and brought to the recovery room in stable condition. There were no known complications.
== END 2022-04-24 12:04 ==
LOC: HO.SSS 05:57
PROVIDERS: PCP Internal Medicine; Visit Provider Orthopaedic Surgery
PROC: (CPT 29827; principal; 2022-04-24 07:30)
DX: M75.102 Unspecified rotator cuff tear or rupture of left shoulder, not specified as traumatic (principal); I10 Essential (primary) hypertension; J45.20 Mild intermittent asthma, uncomplicated; M48.00 Spinal stenosis, site unspecified; M54.2 Cervicalgia; R25.1 Tremor, unspecified; H40.9 Unspecified glaucoma; Z79.51 Long term (current) use of inhaled steroids; Z79.899 Other long term (current) drug therapy; Z88.8 Allergy status to other drugs, medicaments and biological substances; Z90.49 Acquired absence of other specified parts of digestive tract; Z87.891 Personal history of nicotine dependence
CPT/HCPCS: 29827; 29826; 93005; C1713; J0171; J0690; J1100; J2250; J2405; J2795; J3010

== ENCOUNTER → 2022-04-25 08:32 | Outpatient (BNVA) | payer MEDICARE, SELFPAY | PROVIDERS: PCP Internal Medicine; Visit Provider Physician Assistant | DX: Z13.89 Encounter for screening for other disorder (principal) | CPT/HCPCS: 99212 ==

== ENCOUNTER → 2022-04-29 08:44 | Outpatient (BNVA) | payer MEDICARE, SELFPAY | PROVIDERS: PCP Internal Medicine; Visit Provider Physician Assistant | DX: Z13.89 Encounter for screening for other disorder (principal) | CPT/HCPCS: 99212 ==

== ENCOUNTER → 2022-05-27 09:01 | Outpatient (BNVA) | payer MEDICARE, SELFPAY | PROVIDERS: PCP Internal Medicine; Visit Provider Physician Assistant | DX: Z13.89 Encounter for screening for other disorder (principal) | CPT/HCPCS: 99212 ==

== ENCOUNTER → 2022-07-22 09:01 | Outpatient (BNVA) | payer MEDICARE, SELFPAY | PROVIDERS: PCP Internal Medicine; Visit Provider Physician Assistant | DX: Z47.89 Encounter for other orthopedic aftercare (principal); Z98.890 Other specified postprocedural states | CPT/HCPCS: 99212 ==

== ENCOUNTER 2022-07-25 09:46 | Outpatient (REF) | payer MEDICARE, SELFPAY ==
[2022-07-25 18:06] LABS: Total Volume 24 Hour Urine 1200 mL
[2022-07-25 18:07] LABS: Total Volume 24 Hour Urine 1200 mL
[2022-07-25 18:31] LABS: Creatinine, mg/dL 80.97; Phosphorus mg/dL 76.2 mg/dL; Phosphorus, 24 Hr Urine 0.9 G/Day (0.4-1.3)
[2022-07-25 18:35] LABS: Creatinine, mg/dL 82.33; Uric Acid, 24 Hr Urine 457.2 mg/Day (250-750); Uric Acid, mg/dL 38.1 mg/dL
[2022-07-29 17:13] LABS: Calcium, 24 Hr Urine 143 mg/24 h; Calcium/Creatinine Ratio 151 mg/g creat (30-210); Creatinine 24Hr Urine 0.95 g/24 h (0.50-2.15)
[2022-08-01 07:03] LABS: 24hr Urine Total Volume 1200 mL; Citric Acid, 24hr Urine 396 mg/24 h (100-1300); Citric Acid/Creat Ratio 24U 411 mg/g creat (60-660); Creatinine, 24U 0.95 g/24 h (0.50-2.15); Oxalic Acid 24 Urine 31.2 mg/24 h (3.6-38.0)
== END 2022-07-25 09:47 | disposition home or self-care (01) ==
LOC: HO.HMGCLDS 09:46
PROVIDERS: PCP Internal Medicine; Visit Provider Physician Assistant Surgical
DX: N20.0 Calculus of kidney (principal)
CPT/HCPCS: 82340; 82507; 83945; 84105; 84300; 84560

== ENCOUNTER 2022-07-25 10:00 | Outpatient (RCR) | payer MEDICARE, SELFPAY ==
--- NOTE | 2022-04-29 11:09 | MHC.PT.EP ---
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 HE UNDERWENT LEFT ROTATOR CUFF REPAIR (SUPRASPINATUS WITH SAD/DCE) ON 04/24/[address] FISHER. PRESENTS POD #5 FOR ORTHOPEDIC FOLLOW UP WITH PRITESH SIGALA AND PT EVALUATION. UPON EXAM HE DEMONSTRATES THE EXPECTED IMPAIRMENTS OF DECREASED ROM, DECREASED STRENGTH, ALTERED POSTURE AND POSITIONING, INCREASED UPPER TRAP GUARDING, AND INCREASED PAIN AND EDEMA. FUNCTIONAL LIMITATIONS INCLUDE DECREASED ABILITY TO PERFORM HOMEMAKING AND SELF-CARE TASKS, DECREASED ABILITY TO PERFORM PUSHING, PULLING, LIFTING AND REACHING. INABILITY TO DRIVE AND PERFORM WORK TASKS, DECREASED PARTICIPATION IN COMMUNITY AND RECREATIONAL ACTIVITIES AND DISRUPTED SLEEP. THE PT IS A GOOD CANDIDATE FOR SKILLED PT DUE TO AGE, POTENTIAL REMEDIATION OF IMPAIRMENTS, TYPICAL DISEASE/CONDITION PROGRESSION AND PROGNOSIS, COMORBIDITIES, AND MOTIVATION. PT WOULD BENEFIT FROM TAILORED PROGRAM OF THERAPEUTIC ACTIVITIES, FUNCTIONAL TRAINING, POSTURAL EDUCATION, NEUROMUSCULAR RE-EDUCATION, AND MODALITIES NEEDED. Frequency and Duration: The patient will be seen 2 X WEEK FOR 12 WEEKS Short Term Goals: INITIATE HEP AND PROMOTE SELF MANAGEMENT OF SYMPTOMS Experimental Rocketsled Mechanic Goals: TO DEMONSTRATE FULL KNEE ROM, EQUAL SHELBIE TO DEMONSTRATE FULL LE STRENGTH, EQUAL SHELBIE TO ASCEND AND DESCEND STAIRS WITH RECIPROCAL GAIT WITHOUT PAIN GREATER THAN 2/10 TO AMBULATE AD JEY ON LEVEL AND UNEVEN SURFACES FOR FITNESS WITHOUT PAIN GREATER THAN 2/10 Treatment Plan: Modalities to reduce pain, spasms and effusion. Manual therapy to restore motion and function. Therapeutic exercise to improve strength and flexibility. Neuromuscular re-education for posture and balance. Therapeutic activities to return to functional activities of daily living. Electronically signed by: ELIZ LUNA PT, DPT Please sign and return to therapist. Thank you for your referral.
--- NOTE | 2022-09-30 08:17 | MHC.PT.DC ---
[facility] [place] Office [place] Office [place] Office [address] Felicitas Vera [address] [phone] F: [phone] F: [phone] F: [phone] F: [phone] Physical Therapy Discharge Report Diagnosis: S/P LEFT RTCR Date of Surgery: 04/24/21 Date of Evaluation: 04/29/22 Date of Discharge: 08/06/22 Treatments to Date: 21 Cancellations to Date: 0 No Shows to Date: 0 Discharge Status: Improved Function Independent with HEP Discharge Summary: 07/25/22: pt progressed well over the course of skilled PT. compliant and motivated throughout. Full AROM, Strength 4/5 grossly except ER 4-/5. 2/10 max pain with daily tasks. he would like to continue with HEP exclusively at this time. 07/18/22: pt has been progressing well and keeping up with HEP handsomely. continue to progress as tolerated with strength with overhead focus. 07/12/22: continuing to progress as tolerated with strength and functional AROM. 07/08/2022: Progressed to D2 flexion per plan. He did well with this although did demonstrate some shakiness as he approached end range flexion. Was also already fatigued from prior exercises which also likely contributed to shakiness. Otherwise does well with min to no cues for form throughout. Advised continuing with HEP at home. 07/05/22: continues to progress well. increasing overhead strength. add D1/D2 flexion next week. 07/01/22: pt progressing well. updated HEP and we will add flexion D1/D2 next week. given bands and to transition to 1x/week after next week. 06/28/22: pt continues to be compliant with HEP. improving overhead and cuff strength. started D1/D2 ext today. assess response and add flexion in 1-2 weeks. 06/24/22: pt with good AROM. progressing well with strength with overhead activities. 06/21/22: progressing with overhead strength. still some UT comp with increased fatigue. 06/17/22: pt progressing well overall with skilled PT. improved flexion, scaption AROM and flexion/scaption with weight. 06/14/22: pt has been continuing to progress well and is compliant with HEP. we discussed not pushing too much with HEP. 06/11/22: pt progressing well with skilled PT and compliant with HEP still. we are adding IR to daily HEP. 06/07/22: pt has been progressing well over the course of skilled PT. steady progress on ROM and strength thus far with good HEP compliance. 06/03/22: pt notes that he has been feeling better overall but is sore today from putting his jacket on. compliant with hEP and we reviewed this today. continue to progress as tolerated. 05/31/2022: Continued with isometric IR with the band due to still getting some clicking. No pain during session but reports fatigue. Next visit plan to initiate gentle AROM per protocol. 05/27/2022: Pt getting some clicking with IR with YTB concentrically so instead did isometric band walk out today to prevent the click. He felt no click with this modification. Otherwise tolerates all exercises well with no adverse reaction. No pain during session. Great compliance and form throughout. 05/24/22: pt progressing well overall and we updated HEP. continue to progress as tolerated. 05/20/22: pt has been progressing well with skilled PT. progressed with bands for cuff strength pain free. we will transition this to HEP and eliminate isometrics NV. AAROM flexion 122, ER 52 05/17/22: continuing with progression per protocol. no adverse reactions. progress as tolerated. 05/13/22: pt progressing well with skilled PT for ROM and strength. no adverse reactions. progressing well per protocol. reviewed HEP 05/10/2022: Continued with ROM per protocol. Achieving close to 90 of flexion passively. No pain during session and well versed in his program demonstrating good compliance at home. Advised him to continue with exercises at home. 05/06/22: progressed ROM per protocol and added cane flexion/ER, abd isometrics. no adverse reactions. 05/03/22: pt has been progressing with HEP as is appropriate. receptive to edu and compliant with HEP. subpain/subpax isometrics initiated with focus on pain free. 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 HE UNDERWENT LEFT ROTATOR CUFF REPAIR (SUPRASPINATUS WITH SAD/DCE) ON 04/24/[address] FISHER. PRESENTS POD #5 FOR ORTHOPEDIC FOLLOW UP WITH PRITESH SIGALA AND PT EVALUATION. UPON EXAM HE DEMONSTRATES THE EXPECTED IMPAIRMENTS OF DECREASED ROM, DECREASED STRENGTH, ALTERED POSTURE AND POSITIONING, INCREASED UPPER TRAP GUARDING, AND INCREASED PAIN AND EDEMA. FUNCTIONAL LIMITATIONS INCLUDE DECREASED ABILITY TO PERFORM HOMEMAKING AND SELF-CARE TASKS, DECREASED ABILITY TO PERFORM PUSHING, PULLING, LIFTING AND REACHING. INABILITY TO DRIVE AND PERFORM WORK TASKS, DECREASED PARTICIPATION IN COMMUNITY AND RECREATIONAL ACTIVITIES AND DISRUPTED SLEEP. THE PT IS A GOOD CANDIDATE FOR SKILLED PT DUE TO AGE, POTENTIAL REMEDIATION OF IMPAIRMENTS, TYPICAL DISEASE/CONDITION PROGRESSION AND PROGNOSIS, COMORBIDITIES, AND MOTIVATION. PT WOULD BENEFIT FROM TAILORED PROGRAM OF THERAPEUTIC ACTIVITIES, FUNCTIONAL TRAINING, POSTURAL EDUCATION, NEUROMUSCULAR RE-EDUCATION, AND MODALITIES NEEDED. Electronically signed by: David Pyle, PT Please sign and return to therapist. Thank you for your referral.
== END 2022-09-30 09:30 | disposition home or self-care (01) ==
LOC: HO.PTCHIC 10:00
PROVIDERS: Visit Provider Physician Assistant
DX: Z98.890 Other specified postprocedural states (principal)
CPT/HCPCS: 97110; 97140; 97161

== ENCOUNTER 2022-07-31 06:02 | Outpatient (REF) | payer MEDICARE, SELFPAY ==
[2022-07-31 11:27] LABS: MANUAL DIFF FLAG NO
[2022-07-31 11:40] LABS: Basophils Absolute Auto 0.1 X10*3/uL (0.0-0.2); Basophils Percent Auto 1.2 % (0-2); Eosinophils Absolute Auto 0.5 X10*3/uL (0.0-0.4); Eosinophils Percent Auto 6.3 % (0-4); Hematocrit 51.5 % (42.0-52.0); Hemoglobin 17.1 g/dl (14.0-18.0); Imm Gran Pct Auto 1.2 % (0.0-0.4); Lymphocytes Absolute Auto 1.8 X10*3/uL (1.2-4.9); Mean Corpuscular HGB Conc 33.2 g/dl (31.0-36.0); Mean Corpuscular Hemoglobin 30.3 pg (27.0-33.0); Mean Corpuscular Volume 91.3 fL (80.0-98.0); Mean Platelet Volume 9.8 fL (9.4-12.4); Monocytes Absolute Auto 0.7 X10*3/uL (0.1-1.2); Monocytes Percent Auto 8.6 % (2-11); Neutrophils Absolute Auto 4.9 x10*3/uL (2.0-8.3); Neutrophils Percent Auto 60.7 % (45-73); Platelet Count 299 X10*3/uL (160-400); Red Blood Count 5.64 X10*6/uL (4.60-5.80); Red Cell Distribution Width 14.1 % (11.0-16.0); White Blood Count 8.1 X10*3/uL (4.8-10.8)
[2022-07-31 12:30] LABS: Prostate Specific Antigen 0.88 ng/mL (<0.05-4.0)
[2022-07-31 12:41] LABS: Alanine Aminotransferase 23 U/L (0-40); Anion Gap 10 (12-20); Aspartate Amino Transferase 21 U/L (5-37); Blood Urea Nitrogen 20 mg/dL (9-16); Calcium 9.3 mg/dL (8.4-10.2); Carbon Dioxide 26 mmol/L (22-29); Chloride 109 mmol/L (96-108); Cholesterol 193 mg/dL; Estimated Glomerular Filt Rate > 60; Glucose Fasting 98 mg/dL (60-99); HDL Cholesterol 59 mg/dL; LDL Cholesterol Calculated 120 mg/dl; Potassium 4.4 mmol/L (3.3-5.1); Sodium 141 mmol/L (135-145); Triglycerides 74 mg/dL
[2022-07-31 12:46] LABS: Vitamin D 25-OH Total 38.4 ng/mL (>30)
== END 2022-07-31 06:03 | disposition home or self-care (01) ==
LOC: HO.HMGCLDS 06:02
PROVIDERS: Absent Provider Physician Assistant Surgical; PCP Internal Medicine; Visit Provider Internal Medicine
DX: I10 Essential (primary) hypertension (principal); M54.2 Cervicalgia; D30.00 Benign neoplasm of unspecified kidney; Z12.5 Encounter for screening for malignant neoplasm of prostate
CPT/HCPCS: 36415; 80048; 80061; 82306; 84153; 84450; 84460; 85025

== ENCOUNTER 2022-08-07 10:37 | Outpatient (AMB) | payer MEDICARE, SELFPAY ==
[2022-08-07 10:57] VITALS: BP 126/80; PULSE 73; O2SAT 95; BMI 23.3
--- NOTE | 2022-08-07 10:57 | A.OFFPC_ITS ---
<Statement entered by Chela Mansfield MD - 05/23/25 00:14> This note has been administratively?closed. Vital Signs 08/07/22 10:57 Height 5 ft 8 in Weight 153 lb 4 oz BMI 23.3 BP 126/80 Blood Pressure Location Rt brachial Position Sitting Pulse 73 Pulse Source Pulse Oximeter Pulse Oximetry (%) 95 Oxygen Delivery Method Room Air Intake Visit Reasons: 6 month follow up Intake Note: Pt is here today for his 6 month f/u Allergies Fish Containing Products Allergy (Severe, Verified 05/11/25 08:56) ANAPHYLAXIS hydromorphone (From DILAUDID) Allergy (Severe, Verified 05/11/25 08:56) CHILLS,DIAPHORESIS povidone-iodine (From BETADINE) Allergy (Severe, Verified 05/11/25 08:56) ANAPHYLAXIS timolol (TIMOLOL) Allergy (Severe, Verified 05/11/25 08:56) ANAPHYLAXIS ENVIROMENTAL Allergy (Intermediate, Uncoded 02/03/25 10:25) HAYFEVER Lamisil Allergy (Unknown, Uncoded 02/03/25 10:25) Nausea/Dizzy/Airway trouble Medication List - Last Reconciled 08/07/22 by Chela Mansfield MD albuterol sulfate 2.5 mg (3 mL) continuous nebulization Q6H PRN alclometasone 0.05% appl topical betamethasone dipropionate 0.05% topical dupilumab 200 mg subcut .q month epinephrine 0.3 mg (0.3 mL) IM ONCE PRN finasteride 5 mg PO DAILY fluocinonide 0.05% 1 appl topical DAILY fluticasone propionate 50 mcg/actuation 1 spray intranasal DAILY 90 days imiquimod 5% 1 appl topical DIRECTED levalbuterol tartrate 45 mcg/actuation 1 inh PO Q4H PRN levocetirizine (Xyzal) 5 mg PO QPM lisinopril 5 mg PO DAILY Symbicort 80-4.5 mcg/actuation (budesonide-formoterol) 2 inhalations PO BID NS travoprost 0.004% 1 drp ophthalmic (eye) valacyclovir mg PO Tobacco use date assessed: 08/07/22 Fall risk assessment: No Falls in past year Last assessed Fall Risk: 08/07/22 HPI 6 month follow up HPI Details Laboratory Tests 04/12/23 04/12/23 04/12/23 06:08 06:08 06:08 WBC 8.1 Hgb 17.1 Hct 51.5 Plt Count 299 Eos % (Auto) 6.3 H Sodium 141 Potassium 4.4 Chloride 109 H Carbon Dioxide 26 Anion Gap 10 L BUN 20 H Creatinine 0.95 Estimated GFR > 60 Fasting Glucose 98 Calcium 9.3 AST 21 ALT 23 Triglycerides 74 Cholesterol 193 LDL Cholesterol, C alc 120 HDL Cholesterol 59 Prostate Specific Ag 0.88 25-OH Vitamin D To apolinar 38.4 PFSH Medical History Restless legs syndrome (RLS) Rosacea Cervical dystonia Essential and other specified forms of tremor History of eye prosthesis RBBB (right bundle branch block) Mild intermittent asthma Tremor of both hands COVID-19 vaccine series completed PONV (postoperative nausea and vomiting) Alopecia Basal cell carcinoma Retinal vein occlusion of right eye Psoriasis Spinal stenosis Nephrolithiasis Inguinal hernia Essential hypertension Glaucoma Renal oncocytoma BPH (benign prostatic hyperplasia) Cervicalgia Surgical History S/P left rotator cuff repair Hx of repair of right rotator cuff History of carpal tunnel surgery of right wrist H/O: vasectomy History of cataract surgery H/O circumcision H/O enucleation of right eyeball H/O ventral hernia repair Hx of cholecystectomy H/O left inguinal hernia repair H/O lithotripsy H/O partial nephrectomy S/P cervical discectomy History of orchiectomy Family History Father CVD (cardiovascular disease) HTN (hypertension) Social History Housing: House Are you a primary child care giver to a significant other at home: No Do you presently have visiting nurse or other home services: No Alcohol intake: never Patient Tobacco Use Status: Former Tobacco user Tobacco use type: Cigarette Years Smoked: 20 yrs e-Cigarette/Vaping Use: Never Used Second Hand Smoke Exposure: No service: No Current occupational status: retired Current occupation: left handed Cognitive needs: No Hearing needs: No Vision needs: Yes Questionnaire PHQ-9 Over the last 2 weeks, how often have you been bothered by any of the following problems? 1. Little interest or pleasure in doing things: not at all 3. Trouble falling or staying asleep, or sleeping too much: several days 4. Feeling tired or having little energy: several days 5. Poor appetite or overeating: not at all 6. Feeling bad about yourself - or that you are a failure or have let yourself or your family down: not at all 7. Trouble concentrating on things, such as reading the newspaper or watching television: not at all 8. Moving or speaking so slowly that other people could have noticed. Or the opposite - being so fidgety or restless that you have been moving around a lot more than usual: not at all 9. Thoughts that you would be better off or of hurting yourself in some way: not at all Source: Developed by Drs. Brandon De La Torre, Masha Conti, Bridger Corral and colleagues, with an educational ling from [employer]. Thrive Questionnaire Date Thrive assessed: 08/07/22 I am a: Patient What is your living situation today?: I have a steady place to live Within the past 12 months, did the food you bought not last and you didn't have the money to get more?: Never true Within the past 12 months, did you worry whether your food would run out before you got money to buy more?: Never true Do you have trouble paying for medicines?: No Do you have trouble getting transportation to medical appointments?: No Do you have trouble paying your heating and electricity bill?: No Do you have trouble taking care of your child, family member or friend?: No Do you have trouble with day-to-day activities such as bathing, preparing meals, shopping, managing finances, etc.?: No Are you currently unemployed and looking for a job?: No Are you interested in more education?: No AUDIT C Alcohol Use Questionnaire (AUDIT-C) 1. How often do you have a drink containing alcohol?: Never Total Score: 0 LOLYD-7 AMB Questionnaire LLOYD-7 Date LLOYD - 7 assessed: 08/07/22 Feeling nervous, anxious, or on edge: 0 = Not at all Not being able to stop or control worryin = Not at all Worrying too much about different things: 0 = Not at all Trouble relaxin = Not at all Being so restless that it is hard to sit still: 0 = Not at all Becoming easily annoyed or irritable: 0 = Not at all Feeling afraid as if something awful might happen: 0 = Not at all Total LLOYD-7 score (0-4 normal; 5-9 mild; 10-14 moderate; 15-21 severe): 0 Source: Developed by Drs. Brandon De La Torre, Masha Conti, Bridger Corral and colleagues, with an educational ling from [employer]. Physical exam (Primary Care) Vital Signs: Last Vital Signs Pulse 73 08/07/22 10:57 BP 126/80 08/07/22 10:57 Pulse Ox 95 08/07/22 10:57 Oxygen Delivery Method Room Air 08/07/22 10:57 BMI result Body Mass Index 23.3 Tobacco/Smoking Status: Tobacco use Status Tobacco use date assessed 08/07/22 08/07/22 11:11 Patient Tobacco Use Status Former Tobacco user 08/07/22 10:58 Tobacco use type Cigarette 08/07/22 10:58 e-Cigarette/Vaping Use Never Used 08/07/22 10:58 Thrive Assessment: Date of Thrive Assessment Date Thrive assessed 08/07/22 08/07/22 11:11 Coding Level of Care Code Admin Sign Off/No Billing Diagnoses Mild intermittent asthma J45.20 Essential hypertension I10
== END 2022-08-07 11:39 | disposition home or self-care (01) ==
LOC: HO.HMGC 10:37
PROVIDERS: PCP Internal Medicine; Visit Provider Internal Medicine
DX: J45.20 Mild intermittent asthma, uncomplicated (principal); I10 Essential (primary) hypertension
CPT/HCPCS: 99499

== ENCOUNTER → 2022-08-29 10:19 | Outpatient (BNVA) | payer MEDICARE, SELFPAY | PROVIDERS: PCP Internal Medicine; Visit Provider Surgery Vascular Surgery | DX: I73.00 Raynaud's syndrome without gangrene (principal); I65.23 Occlusion and stenosis of bilateral carotid arteries | CPT/HCPCS: 99202 ==

== ENCOUNTER 2022-09-09 08:51 | Outpatient (REF) | payer MEDICARE, SELFPAY ==
--- NOTE | ~2022-09-09 | US_ITS ---
EXAMINATION: US EXTRACRANIAL CAROTID DUPLEX, BILATERAL CLINICAL INFORMATION: Carotid stenosis. Hypertension. COMPARISON: Carotid ultrasound 09/24/2017. TECHNIQUE: Real-time ultrasound and Doppler techniques (integrating B-mode 2-D vascular images, Doppler spectral analysis and color-flow Doppler imaging) were utilized to interrogate the extracranial carotid arteries, the vertebral arteries and proximal subclavian arteries bilaterally. The degree of stenosis is determined by criteria similar to NASCET. FINDINGS: Right Side: 1. There is moderate atherosclerotic plaque seen in the bifurcation/proximal ICA region. 2. The common carotid artery PSV proximally is 110 cm/s and distally 91 cm/s. 3. The proximal internal carotid artery velocities are 88 cm/s systolic and 22 cm/s diastolic. 4. The proximal external carotid artery PSV is 140 cm/s. 5. The vertebral artery shows antegrade flow. 6. The subclavian artery waveforms are normal. Left Side: 1. There is mild atherosclerotic plaque seen in the bifurcation/proximal ICA region. 2. The common carotid artery PSV proximally is 128 cm/s and distally 84 cm/s. 3. The proximal internal carotid artery velocities are 72 cm/s systolic and 16 cm/s diastolic. 4. The proximal external carotid artery PSV is 112 cm/s. 5. The vertebral artery shows bidirectional flow. 6. The subclavian artery waveforms are normal. US/US carotid duplex BI IMPRESSION: 1. RIGHT: Minimal, non-hemodynamically significant stenosis of the proximal right internal carotid artery corresponding to a 0-49% stenosis by velocity criteria. 2. LEFT: Minimal, non-hemodynamically significant stenosis of the proximal left internal carotid artery corresponding to a 0-49% stenosis by velocity criteria. 3. There is no change in the category severity of disease when compared to the previous study dated 09/24/2017. 4. Bidirectional flow in the left vertebral artery may reflect early steal.
== END 2022-09-09 08:52 | disposition home or self-care (01) ==
LOC: HO.HMGCX 08:51
PROVIDERS: PCP Internal Medicine; Visit Provider Surgery Vascular Surgery
DX: I65.23 Occlusion and stenosis of bilateral carotid arteries (principal)
CPT/HCPCS: 93880

== ENCOUNTER → 2022-09-24 10:49 | Outpatient (BNVA) | payer MEDICARE, SELFPAY | PROVIDERS: PCP Internal Medicine; Visit Provider Psychiatry & Neurology Neurology | DX: G25.0 Essential tremor (principal); G25.2 Other specified forms of tremor; G24.3 Spasmodic torticollis | CPT/HCPCS: 99202 ==

== ENCOUNTER → 2022-09-26 13:52 | Outpatient (BNVA) | payer MEDICARE, SELFPAY | PROVIDERS: PCP Internal Medicine; Visit Provider Surgery Vascular Surgery | DX: I65.23 Occlusion and stenosis of bilateral carotid arteries (principal); I73.00 Raynaud's syndrome without gangrene | CPT/HCPCS: 99212 ==

== ENCOUNTER 2022-12-26 08:50 | Outpatient (AMB) | payer MEDICARE, SELFPAY ==
[2022-12-26 08:54] VITALS: BP 124/70; PULSE 64; O2SAT 95; BMI 22.8
--- NOTE | 2022-12-26 08:54 | A.OFFVIS_ITS ---
Intake Vital Signs 12/26/22 08:54 Height 5 ft 8 in Weight 150 lb BMI 22.8 BP 124/70 Blood Pressure Location Rt brachial Position Sitting Pulse 64 Pulse Source Pulse Oximeter Pulse Oximetry (%) 95 Oxygen Delivery Method Room Air Intake Visit Reasons: 3month f/u -Tremors-confirmed Intake Note: Pt presents as a 3 month f/u tremors. Lap Machine Operator Required: No Allergies Fish Containing Products Allergy (Severe, Verified 12/26/22 08:57) ANAPHYLAXIS hydromorphone [From DILAUDID] Allergy (Severe, Verified 12/26/22 08:57) CHILLS,DIAPHORESIS povidone-iodine [From BETADINE] Allergy (Severe, Verified 12/26/22 08:57) ANAPHYLAXIS timolol [TIMOLOL] Allergy (Severe, Verified 12/26/22 08:57) ANAPHYLAXIS ENVIROMENTAL Allergy (Intermediate, Uncoded 12/26/22 08:57) HAYFEVER Lamisil Allergy (Unknown, Uncoded 12/26/22 08:57) Nausea/Dizzy/Airway trouble HPI HPI Comments History of Present Illness Details 77y/o left handed male comes for follow up of tremors.Calatr was not approved . He reports noticeable tremors after his cervical spinal fusion surgery about 10 years ago. The tremors are in jak UE left >right. In the past 1 year he has noticed increase in intensity of his tremors The tremors are mostly with action especially actions needing fine motor coordination. He has difficulty writing, drinking liquids without spilling etc. The intensity fluctuates . He is unclear if there are any factors that improve or worsen the tremors. No change in speech He has arthritis and has noticed increase in his neck pain.He follows up with Dr. Gutierres at [facility].He denies any new medications No exposure to neuroleptics He was trialed on primidone 50 mg helped his tremors but felt drowsy.He cannot use betablockers because of his asthma [facility] Medical History Cervical dystonia Essential and other specified forms of tremor Coarse tremors History of eye prosthesis Asthma RBBB (right bundle branch block) Mild intermittent asthma Tremor of both hands COVID-19 vaccine series completed PONV (postoperative nausea and vomiting) Post-nasal drip Alopecia Basal cell carcinoma Retinal vein occlusion of right eye Psoriasis Spinal stenosis Nephrolithiasis Inguinal hernia Essential hypertension Glaucoma Renal oncocytoma BPH (benign prostatic hyperplasia) Cervicalgia Surgical History Hx of repair of right rotator cuff History of carpal tunnel surgery of right wrist H/O: vasectomy History of cataract surgery H/O circumcision H/O enucleation of right eyeball H/O ventral hernia repair Hx of cholecystectomy H/O left inguinal hernia repair H/O lithotripsy H/O partial nephrectomy H/O rotator cuff surgery S/P cervical discectomy History of orchiectomy Family History Father CVD (cardiovascular disease) HTN (hypertension) Social History Housing: House Are you a primary transitional care liaison to a significant other at home: No Do you presently have visiting nurse or other home services: No Alcohol intake: never Patient Tobacco Use Status: Former Tobacco user Quit Date: 23 yrs ago Tobacco use type: Cigarette Years Smoked: 20 yrs e-Cigarette/Vaping Use: Never Used Second Hand Smoke Exposure: No service: No Current occupational status: retired Current occupation: lt handed Cognitive needs: No Hearing needs: No Vision needs: Yes Physical Exam Vital Signs: Last Vital Signs Pulse 64 12/26/22 08:54 BP 124/70 12/26/22 08:54 Pulse Ox 95 12/26/22 08:54 Oxygen Delivery Method Room Air 12/26/22 08:54 BMI result Body Mass Index 22.8 Assessment & Plan Assessment & Plan (1) Essential and other specified forms of tremor: Code(s): G25.0 - Essential tremor; G25.2 - Other specified forms of tremor (2) Cervical dystonia: Code(s): G24.3 - Spasmodic torticollis Plan Patient is not a candidate for betablockers due to his asthma and failed primidone due to side effects He is interested in a nonpharmacological approach Calatrio- not approved and too expensive Zonisamide - concerned about glaucoma. I will consider botox for his cervical dystonia during his next visit- patient declines for now Coding Level of Care Code Est Pt Level 4 (65241) Diagnoses Essential and other specified forms of tremor G25.0; G25.2 Cervical dystonia G24.3
== END 2022-12-26 09:17 | disposition home or self-care (01) ==
PROVIDERS: PCP Internal Medicine; Visit Provider Psychiatry & Neurology Neurology
DX: G25.0 Essential tremor (principal); G25.2 Other specified forms of tremor; G24.3 Spasmodic torticollis
CPT/HCPCS: 99214

== ENCOUNTER → 2022-12-26 08:50 | Outpatient (BNVA) | payer MEDICARE, SELFPAY | PROVIDERS: PCP Internal Medicine; Visit Provider Psychiatry & Neurology Neurology | DX: G25.0 Essential tremor (principal); G25.2 Other specified forms of tremor; G24.3 Spasmodic torticollis | CPT/HCPCS: 99212 ==

== ENCOUNTER 2023-01-09 15:16 | Outpatient (AMB) | payer MEDICARE, SELFPAY ==
--- NOTE | 2023-01-09 15:22 | MHC.PC.OV ---
Vital Signs 01/09/23 15:29 Height 5 ft 8 in Weight 147 lb BMI 22.3 BP 124/68 Blood Pressure Location Lt brachial Position Sitting Pulse 81 Pulse Source Pulse Oximeter Pulse Oximetry (%) 98 Oxygen Delivery Method Room Air Intake Visit Reasons: abdomen pain for around 2 weeks Intake Note: Pt is here today c/o abdomen pain on the right lower quandrant x2wks Allergies Fish Containing Products Allergy (Severe, Verified 01/09/23 15:35) ANAPHYLAXIS hydromorphone [From DILAUDID] Allergy (Severe, Verified 01/09/23 15:35) CHILLS,DIAPHORESIS povidone-iodine [From BETADINE] Allergy (Severe, Verified 01/09/23 15:35) ANAPHYLAXIS timolol [TIMOLOL] Allergy (Severe, Verified 01/09/23 15:35) ANAPHYLAXIS ENVIROMENTAL Allergy (Intermediate, Uncoded 01/09/23 15:35) HAYFEVER Lamisil Allergy (Unknown, Uncoded 01/09/23 15:35) Nausea/Dizzy/Airway trouble Medication List - Last Reconciled 01/09/23 by Chela Mansfield MD albuterol sulfate 2.5 mg (3 mL) continuous nebulization Q6H PRN alclometasone 0.05% appl topical azelaic acid 15% topical betamethasone dipropionate 0.05% topical clotrimazole-betamethasone 1-0.05 % appl topical BID dupilumab 200 mg subcut .q month epinephrine 0.3 mg (0.3 mL) IM ONCE PRN finasteride 5 mg PO DAILY fluocinonide 0.05% 1 appl topical DAILY fluticasone propionate 50 mcg/actuation 1 spray intranasal DAILY 90 days levalbuterol tartrate 45 mcg/actuation 1 inh PO Q4H PRN levocetirizine (Xyzal) 5 mg PO QPM lisinopril 5 mg PO DAILY sildenafil 50 mg PO Symbicort 80-4.5 mcg/actuation (budesonide-formoterol) 2 inhalations PO BID NS travoprost 0.004% 1 drp ophthalmic (eye) valacyclovir mg PO Tobacco use date assessed: 01/09/23 Fall risk assessment: No Falls in past year Last assessed Fall Risk: 01/09/23 Dental Screening Dental Screen Date: 01/09/23 Did you have a dental visit in the last 12 months?: Yes Did you have a dental problem in the last 6 months where you did not have access to dental care?: Yes Was dental information given to patient?: Patient has dentist HPI abdomen pain for around 2 weeks HPI Details 77-year-old male here today complaining of intermittent episodes of sharp pain right side of abdomen, lasting for several seconds, which started approximately 2 weeks ago. Initially happened when he was reaching out to withdrawal from an 80 mm she, or when he would bend down to put his socks and shoes on. Episode however were fleeting in nature and resolved spontaneously. He went to the walk-in clinic at his urologist's office this morning and had a urinalysis done with results still pending. Otherwise he has been feeling well with no complaints at present time. [facility] Medical History Cervical dystonia Essential and other specified forms of tremor Coarse tremors History of eye prosthesis Asthma RBBB (right bundle branch block) Mild intermittent asthma Tremor of both hands COVID-19 vaccine series completed PONV (postoperative nausea and vomiting) Post-nasal drip Alopecia Basal cell carcinoma Retinal vein occlusion of right eye Psoriasis Spinal stenosis Nephrolithiasis Inguinal hernia Essential hypertension Glaucoma Renal oncocytoma BPH (benign prostatic hyperplasia) Cervicalgia Surgical History Hx of repair of right rotator cuff History of carpal tunnel surgery of right wrist H/O: vasectomy History of cataract surgery H/O circumcision H/O enucleation of right eyeball H/O ventral hernia repair Hx of cholecystectomy H/O left inguinal hernia repair H/O lithotripsy H/O partial nephrectomy H/O rotator cuff surgery S/P cervical discectomy History of orchiectomy Family History Father CVD (cardiovascular disease) HTN (hypertension) Social History Housing: House Are you a primary primary care physician to a significant other at home: No Do you presently have visiting nurse or other home services: No Alcohol intake: never Patient Tobacco Use Status: Former Tobacco user Quit Date: 23 yrs ago Tobacco use type: Cigarette Years Smoked: 20 yrs e-Cigarette/Vaping Use: Never Used Second Hand Smoke Exposure: No service: No Current occupational status: retired Current occupation: lt handed Cognitive needs: No Hearing needs: No Vision needs: Yes Questionnaire Thrive Questionnaire Date Thrive assessed: 08/07/22 AUDIT C Alcohol Use Questionnaire (AUDIT-C) 1. How often do you have a drink containing alcohol?: Never Total Score: 0 LLOYD-7 AMB Questionnaire LLOYD-7 Date LLOYD - 7 assessed: 08/07/22 Source: Developed by Drs. Brandon De La Torre, Masha Conti, Bridger Corral and colleagues, with an educational ling from [employer]. Review of Systems Const All systems reviewed & are unremarkable except as noted in HPI and below Physical exam (Primary Care) Vital Signs: Last Vital Signs Pulse 81 01/09/23 15:29 BP 124/68 01/09/23 15:29 Pulse Ox 98 01/09/23 15:29 Oxygen Delivery Method Room Air 01/09/23 15:29 BMI result Body Mass Index 22.3 Tobacco/Smoking Status: Tobacco use Status Tobacco use date assessed 01/09/23 01/09/23 15:31 Patient Tobacco Use Status Former Tobacco user 01/09/23 15:31 Tobacco use type Cigarette 01/09/23 15:31 e-Cigarette/Vaping Use Never Used 01/09/23 15:31 Thrive Assessment: Date of Thrive Assessment Date Thrive assessed 08/07/22 01/09/23 15:31 Const Other: Alert oriented x3, ambulatory normal gait Orientation/consciousness: patient oriented x3 Neck Other: Supple with no lymphadenopathy palpated Chest Chest palpation & inspection: normal inspection of the chest Resp Auscultation: clear to auscultation bilaterally Cardio Other: S1-S2 present regular rate and rhythm GI Other: Normal bowel sounds, soft, nontender, no mass palpated Back/Spine/Pelvis Other: Full range of motion of spine Skin General skin exam: no rashes or lesions noted Neuro General: patient oriented x3, gait normal, tone normal, moves all extremities, Normal light touch and pain sensation and no focal motor deficits Extrem General: Yes full ROM Assessment and Plan Assessment & Plan (1) Abdominal muscle strain: Code(s): S39.011A - Strain of muscle, fascia and tendon of abdomen, initial encounter Qualifiers: Encounter type: initial encounter Qualified Code(s): S39.011A - Strain of muscle, fascia and tendon of abdomen, initial encounter Plan: Advised to massaged area with absorbent kwaku, and try doing stretching exercises, tented clinic if no improvement of symptoms noted, waiting for results of urinalysis obtained at urologist office Coding Level of Care Code Est Pt Level 3 (81960) Diagnoses Strain of abdominal muscle, initial encounter S39.011A Encounter type: initial encounter
[2023-01-09 15:29] VITALS: BP 124/68; PULSE 81; O2SAT 98; BMI 22.3
== END 2023-01-09 15:50 | disposition home or self-care (01) ==
PROVIDERS: PCP Internal Medicine; Visit Provider Internal Medicine
DX: S39.011A Strain of muscle, fascia and tendon of abdomen, initial encounter (principal)
CPT/HCPCS: 99213

== ENCOUNTER 2023-02-24 08:04 | Outpatient (AMB) | payer MEDICARE, SELFPAY ==
[2023-02-24 08:16] VITALS: BP 130/74; PULSE 86; TEMP 36.5; O2SAT 97; BMI 22.7
--- NOTE | 2023-02-24 08:16 | MHC.OFFWIV ---
Intake Vital Signs 02/24/23 08:16 Height 5 ft 8 in Weight 149 lb 4 oz BMI 22.7 BP 130/74 Blood Pressure Location Lt brachial Position Sitting Pulse 86 Pulse Source Pulse Oximeter Temp 97.7 F Temp Source Temporal Artery Scan Pulse Oximetry (%) 97 Oxygen Delivery Method Room Air Intake Visit Reasons: Ep, congestion, cough (masked) Intake Note: pt is here for c/o cough with congestion Patient Tobacco Use Status: Former Tobacco user Quit Date: 23 yrs ago Allergies Fish Containing Products Allergy (Severe, Verified 02/24/23 08:51) ANAPHYLAXIS hydromorphone [From DILAUDID] Allergy (Severe, Verified 02/24/23 08:51) CHILLS,DIAPHORESIS povidone-iodine [From BETADINE] Allergy (Severe, Verified 02/24/23 08:51) ANAPHYLAXIS timolol [TIMOLOL] Allergy (Severe, Verified 02/24/23 08:51) ANAPHYLAXIS ENVIROMENTAL Allergy (Intermediate, Uncoded 02/24/23 08:51) HAYFEVER Lamisil Allergy (Unknown, Uncoded 02/24/23 08:51) Nausea/Dizzy/Airway trouble Do you need a note to return to daycare/school/sports/work: Yes HPI Ep, congestion, cough (masked) HPI Details Patient presents for a sick visit. Reporting symptoms of sinus congestion, sore throat and difficulty swallowing. Low-grade fever. No family member is sick. No recent travel. Patient reports symptoms of malaise and fatigue. [facility] Medical History Cervical dystonia Essential and other specified forms of tremor Coarse tremors History of eye prosthesis Asthma RBBB (right bundle branch block) Mild intermittent asthma Tremor of both hands COVID-19 vaccine series completed PONV (postoperative nausea and vomiting) Post-nasal drip Alopecia Basal cell carcinoma Retinal vein occlusion of right eye Psoriasis Spinal stenosis Nephrolithiasis Inguinal hernia Essential hypertension Glaucoma Renal oncocytoma BPH (benign prostatic hyperplasia) Cervicalgia Surgical History Hx of repair of right rotator cuff History of carpal tunnel surgery of right wrist H/O: vasectomy History of cataract surgery H/O circumcision H/O enucleation of right eyeball H/O ventral hernia repair Hx of cholecystectomy H/O left inguinal hernia repair H/O lithotripsy H/O partial nephrectomy H/O rotator cuff surgery S/P cervical discectomy History of orchiectomy Family History Father CVD (cardiovascular disease) HTN (hypertension) Social History Housing: House Are you a primary animal care service worker to a significant other at home: No Do you presently have visiting nurse or other home services: No Alcohol intake: never Patient Tobacco Use Status: Former Tobacco user Quit Date: 23 yrs ago Tobacco use type: Cigarette Years Smoked: 20 yrs e-Cigarette/Vaping Use: Never Used Second Hand Smoke Exposure: No service: No Current occupational status: retired Current occupation: lt handed Cognitive needs: No Hearing needs: No Vision needs: Yes Physical Exam Vital Signs: Last Vital Signs Temp 97.7 F 02/24/23 08:16 Pulse 86 02/24/23 08:16 BP 130/74 02/24/23 08:16 Pulse Ox 97 02/24/23 08:16 Oxygen Delivery Method Room Air 02/24/23 08:16 BMI result Body Mass Index 22.7 Const General: cooperative and healthy appearing Nutritional Appearance: well nourished Orientation/consciousness: patient oriented x3 Limitations: no limitations HEENT Head: Yes normal to inspection Eyes General: appearance normal, both eyes and all related structures Neck Neck: Yes normal visual inspection Chest Chest palpation & inspection: normal palpation of entire chest wall Resp Effort & Inspection: normal respiratory effort Neuro General: patient oriented x3 Assessment & Plan Assessment & Plan (1) Upper respiratory tract infection: Code(s): J06.9 - Acute upper respiratory infection, unspecified Plan: Antibiotics ordered. Increase fluid intake. Tylenol for aches and pains. If symptoms worsen, follow-up here for a recheck. Coding Level of Care Code Est Pt Level 4 (41269) Diagnoses Upper respiratory tract infection J06.9
== END 2023-02-24 09:11 | disposition home or self-care (01) ==
PROVIDERS: PCP Internal Medicine; Visit Provider Internal Medicine
DX: J06.9 Acute upper respiratory infection, unspecified (principal)
CPT/HCPCS: 99214

== ENCOUNTER 2023-02-27 10:01 | Outpatient (AMB) | payer MEDICARE, SELFPAY ==
--- NOTE | 2023-02-27 10:15 | AM.OFFWIN_ITS ---
Intake Vital Signs 02/27/23 10:16 Height 5 ft 8 in Weight 150 lb BMI 22.8 BP 130/60 Blood Pressure Location Rt brachial Position Sitting Pulse 78 Pulse Source Pulse Oximeter Temp 97.1 F Temp Source Temporal Artery Scan Pulse Oximetry (%) 96 Oxygen Delivery Method Room Air Intake Visit Reasons: EP congestion/cough/headache/Wheezing Intake Note: pt is here for c/o cough with congestion, headache and wheezing Patient Tobacco Use Status: Former Tobacco user Quit Date: 23 yrs ago Allergies Fish Containing Products Allergy (Severe, Verified 02/27/23 10:19) ANAPHYLAXIS hydromorphone [From DILAUDID] Allergy (Severe, Verified 02/27/23 10:19) CHILLS,DIAPHORESIS povidone-iodine [From BETADINE] Allergy (Severe, Verified 02/27/23 10:19) ANAPHYLAXIS timolol [TIMOLOL] Allergy (Severe, Verified 02/27/23 10:19) ANAPHYLAXIS ENVIROMENTAL Allergy (Intermediate, Uncoded 02/27/23 10:19) HAYFEVER Lamisil Allergy (Unknown, Uncoded 02/27/23 10:19) Nausea/Dizzy/Airway trouble Do you need a note to return to daycare/school/sports/work: No HPI EP congestion/cough/headache/Wheezing HPI Details 77-year-old male patient presents today with ongoing productive cough, and intermittent wheezing. He was seen on 02/24 here, and started on azithromycin and a few days of p.o. prednisone. He returns today reporting it is unimproved, and thinks he needs a stronger antibiotic. He has been using his nebulizer at home a few times a day. Has also been taking Robitussin for the cough. Has been having thick yellow/brown sputum. No fever or chills. No shortness of breath. [facility] Medical History Cervical dystonia Essential and other specified forms of tremor Coarse tremors History of eye prosthesis Asthma RBBB (right bundle branch block) Mild intermittent asthma Tremor of both hands COVID-19 vaccine series completed PONV (postoperative nausea and vomiting) Post-nasal drip Alopecia Basal cell carcinoma Retinal vein occlusion of right eye Psoriasis Spinal stenosis Nephrolithiasis Inguinal hernia Essential hypertension Glaucoma Renal oncocytoma BPH (benign prostatic hyperplasia) Cervicalgia Surgical History Hx of repair of right rotator cuff History of carpal tunnel surgery of right wrist H/O: vasectomy History of cataract surgery H/O circumcision H/O enucleation of right eyeball H/O ventral hernia repair Hx of cholecystectomy H/O left inguinal hernia repair H/O lithotripsy H/O partial nephrectomy H/O rotator cuff surgery S/P cervical discectomy History of orchiectomy Family History Father CVD (cardiovascular disease) HTN (hypertension) Social History Housing: House Are you a primary career professional to a significant other at home: No Do you presently have visiting nurse or other home services: No Alcohol intake: never Patient Tobacco Use Status: Former Tobacco user Quit Date: 23 yrs ago Tobacco use type: Cigarette Years Smoked: 20 yrs e-Cigarette/Vaping Use: Never Used Second Hand Smoke Exposure: No service: No Current occupational status: retired Current occupation: lt handed Cognitive needs: No Hearing needs: No Vision needs: Yes Review of Systems Const All systems reviewed & are unremarkable except as noted in HPI and below Physical Exam Vital Signs: Last Vital Signs Temp 97.1 F 02/27/23 10:16 Pulse 78 02/27/23 10:16 BP 130/60 02/27/23 10:16 Pulse Ox 96 02/27/23 10:16 Oxygen Delivery Method Room Air 02/27/23 10:16 BMI result Body Mass Index 22.8 Const General: cooperative and no acute distress HEENT Head: Yes normal to inspection Ears: hearing grossly normal bilaterally General nose exam: Normal external nose present Face and sinus: Yes normal facial exam Mouth: Normal oral and palatal mucosa present Throat: Yes posterior oropharynx normal and Yes postnasal drainage Neck Neck: Yes no lymphadenopathy Resp Other: LS otherwise clear Effort & Inspection: normal respiratory effort and Actively coughing Quality: actively coughing Auscultation: rhonchi upper bilaterally and wheezes upper bilaterally Cardio Jugular venous distension: no JVD Palpation: normal PMI Rate: regular rate Rhythm: regular rhythm Skin General skin exam: no rashes or lesions noted Extrem General: Yes capillary refill normal and Yes no clubbing, cyanosis or edema Psych Appearance: grossly normal Mental Status: mental status grossly normal Speech and movement: Normal speech and movement present Assessment & Plan Assessment & Plan (1) Bronchitis: Code(s): J40 - Bronchitis, not specified as acute or chronic Plan: Patient has ongoing upper respiratory symptoms. His LS are clear aside from some upper resp. rhonchi. He has done well previously on Augmentin, which I will start him on. I will also prescribe another short course of prednisone. We reviewed indications, use, possible side effects of medication. He can continue to utilize nebulizer and cough drops as needed. If he does not improve with treatment, or if symptoms worsen/new symptoms develop, he should return to the clinic for further evaluation. He verbalizes understanding and agrees to plan. Medications: New amoxicillin-pot clavulanate 875-125 mg 1 tab PO BID 14 tabs 0RF 7 days J40 - Bronchitis, not specified as acute or chronic prednisone 20 mg PO BID 6 tabs 0RF 3 days J40 - Bronchitis, not specified as acute or chronic Coding Level of Care Code Est Pt Level 3 (97080) Diagnoses Bronchitis J40
[2023-02-27 10:16] VITALS: BP 130/60; PULSE 78; TEMP 36.2; O2SAT 96; BMI 22.8
== END 2023-02-27 10:41 | disposition home or self-care (01) ==
PROVIDERS: PCP Internal Medicine; Visit Provider Nurse Practitioner Family
DX: J40 Bronchitis, not specified as acute or chronic (principal)
CPT/HCPCS: 99213

== ENCOUNTER 2023-07-17 08:06 | Outpatient (AMB) | payer MEDICARE, SELFPAY ==
--- NOTE | 2023-07-17 08:10 | AM.OFFWIN_ITS ---
Intake Vital Signs 07/17/23 08:11 Height 5 ft 8 in BP 110/64 Blood Pressure Location Rt brachial Position Sitting Pulse 90 Pulse Source Pulse Oximeter Temp 98.4 F Temp Source Oral Pulse Oximetry (%) 99 Oxygen Delivery Method Room Air Intake Visit Reasons: Sinus, Chest congestion (lobby) Intake Note: pt is here sneezing runny nose and eyes runny with chest congestion with sinus congestion and a dry cough for the past 2-3 day Patient Tobacco Use Status: Former Tobacco user Quit Date: 23 yrs ago Allergies Fish Containing Products Allergy (Severe, Verified 07/17/23 08:12) ANAPHYLAXIS hydromorphone [From DILAUDID] Allergy (Severe, Verified 07/17/23 08:12) CHILLS,DIAPHORESIS povidone-iodine [From BETADINE] Allergy (Severe, Verified 07/17/23 08:12) ANAPHYLAXIS timolol [TIMOLOL] Allergy (Severe, Verified 07/17/23 08:12) ANAPHYLAXIS ENVIROMENTAL Allergy (Intermediate, Uncoded 07/17/23 08:12) HAYFEVER Lamisil Allergy (Unknown, Uncoded 07/17/23 08:12) Nausea/Dizzy/Airway trouble HPI HPI Comments History of Present Illness Details 78 y/o female patient who presents to [facility] in clinic with c/o URI symptoms for 2 days now. Pt denies any recent sick contacts. He is all uptodate with his COVID and Immunizations. [facility] Medical History Cervical dystonia Essential and other specified forms of tremor Coarse tremors History of eye prosthesis Asthma RBBB (right bundle branch block) Mild intermittent asthma Tremor of both hands COVID-19 vaccine series completed PONV (postoperative nausea and vomiting) Post-nasal drip Alopecia Basal cell carcinoma Retinal vein occlusion of right eye Psoriasis Spinal stenosis Nephrolithiasis Inguinal hernia Essential hypertension Glaucoma Renal oncocytoma BPH (benign prostatic hyperplasia) Cervicalgia Surgical History Hx of repair of right rotator cuff History of carpal tunnel surgery of right wrist H/O: vasectomy History of cataract surgery H/O circumcision H/O enucleation of right eyeball H/O ventral hernia repair Hx of cholecystectomy H/O left inguinal hernia repair H/O lithotripsy H/O partial nephrectomy H/O rotator cuff surgery S/P cervical discectomy History of orchiectomy Family History Father CVD (cardiovascular disease) HTN (hypertension) Social History Housing: House Are you a primary home health care case manager to a significant other at home: No Do you presently have visiting nurse or other home services: No Alcohol intake: never Patient Tobacco Use Status: Former Tobacco user Quit Date: 23 yrs ago Tobacco use type: Cigarette Years Smoked: 20 yrs e-Cigarette/Vaping Use: Never Used Second Hand Smoke Exposure: No service: No Current occupational status: retired Current occupation: lt handed Cognitive needs: No Hearing needs: No Vision needs: Yes Review of Systems Const All systems reviewed & are unremarkable except as noted in HPI and below Physical Exam Vital Signs: Last Vital Signs Temp 98.4 F 07/17/23 08:11 Pulse 90 07/17/23 08:11 BP 110/64 07/17/23 08:11 Pulse Ox 99 07/17/23 08:11 Oxygen Delivery Method Room Air 07/17/23 08:11 Const General: comfortable and no acute distress HEENT Head: Yes normocephalic Ears: external ears normal and TM's normal bilaterally General nose exam: Abnormal mucous membranes and turbinates present pale Face and sinus: Yes sinuses nontender Mouth: moist mucous membranes Throat: Yes posterior oropharynx normal Resp Effort & Inspection: normal respiratory effort and able to speak in complete sentences Auscultation: clear to auscultation bilaterally, no crackles, no rales, no rhonchi and no wheezes Cardio Rate: regular rate Rhythm: regular rhythm Psych Speech and movement: Normal speech and movement present Assessment & Plan Assessment & Plan (1) Upper respiratory tract infection: Code(s): J06.9 - Acute upper respiratory infection, unspecified Qualifiers: URI type: unspecified viral URI Qualified Code(s): J06.9 - Acute upper respiratory infection, unspecified Plan: - Poss Viral - OTC cold/flu medications. - RTC if not better. Medications: New benzonatate 100 mg PO TID 30 caps 0RF cough J06.9 - Acute upper respiratory infection, unspecified oxymetazoline 0.05% (Mucinex Sinus-Max) 2 sprays intranasal Q12H 3 days PRN 22 mL 0RF nasal congestion J06.9 - Acute upper respiratory infection, unspecified Coding Level of Care Code Est Pt Level 3 (44231) Diagnoses Viral upper respiratory tract infection J06.9 URI type: unspecified viral URI Time Spent (min) 15
[2023-07-17 08:11] VITALS: BP 110/64; PULSE 90; TEMP 36.9; O2SAT 99
== END 2023-07-17 08:47 | disposition home or self-care (01) ==
PROVIDERS: PCP Internal Medicine; Visit Provider Nurse Practitioner Family
DX: J06.9 Acute upper respiratory infection, unspecified (principal)
CPT/HCPCS: 99213

== ENCOUNTER 2023-07-25 11:02 | Outpatient (AMB) | payer MEDICARE, SELFPAY ==
--- NOTE | 2023-07-25 11:12 | MHC.OFFVIS ---
Intake Vital Signs 07/25/23 11:20 Height 5 ft 8 in Weight 150 lb BMI 22.8 Intake Visit Reasons: OV-Left shoulder pain-follow up Intake Note: Juve is a 77 year old left hand dominant male who presents today for a follow up for his left RTC repair, 04/24/22 NE. Patient reports for about a month he has been having numbness and tingling in the ulnar aspect of elbow that radiates down to his hand. Denies any pain or recent injury. No other tx. Allergies Fish Containing Products Allergy (Severe, Verified 07/25/23 11:20) ANAPHYLAXIS hydromorphone [From DILAUDID] Allergy (Severe, Verified 07/25/23 11:20) CHILLS,DIAPHORESIS povidone-iodine [From BETADINE] Allergy (Severe, Verified 07/25/23 11:20) ANAPHYLAXIS timolol [TIMOLOL] Allergy (Severe, Verified 07/25/23 11:20) ANAPHYLAXIS ENVIROMENTAL Allergy (Intermediate, Uncoded 07/25/23 11:20) HAYFEVER Lamisil Allergy (Unknown, Uncoded 07/25/23 11:20) Nausea/Dizzy/Airway trouble HPI HPI Comments History of Present Illness Details This is a 78 yo with numbness and tingling in his left elbow and hand at night. He has had prior CTR on the right. This has been going on for years. [facility] Medical History Cervical dystonia Essential and other specified forms of tremor Coarse tremors History of eye prosthesis Asthma RBBB (right bundle branch block) Mild intermittent asthma Tremor of both hands COVID-19 vaccine series completed PONV (postoperative nausea and vomiting) Post-nasal drip Alopecia Basal cell carcinoma Retinal vein occlusion of right eye Psoriasis Spinal stenosis Nephrolithiasis Inguinal hernia Essential hypertension Glaucoma Renal oncocytoma BPH (benign prostatic hyperplasia) Cervicalgia Surgical History Hx of repair of right rotator cuff History of carpal tunnel surgery of right wrist H/O: vasectomy History of cataract surgery H/O circumcision H/O enucleation of right eyeball H/O ventral hernia repair Hx of cholecystectomy H/O left inguinal hernia repair H/O lithotripsy H/O partial nephrectomy H/O rotator cuff surgery S/P cervical discectomy History of orchiectomy Family History Father CVD (cardiovascular disease) HTN (hypertension) Social History Housing: House Are you a primary vehicle care specialist to a significant other at home: No Do you presently have visiting nurse or other home services: No Alcohol intake: never Patient Tobacco Use Status: Former Tobacco user Quit Date: 23 yrs ago Tobacco use type: Cigarette Years Smoked: 20 yrs e-Cigarette/Vaping Use: Never Used Second Hand Smoke Exposure: No service: No Current occupational status: retired Current occupation: lt handed Cognitive needs: No Hearing needs: No Vision needs: Yes Physical Exam Vital Signs: BMI result Body Mass Index 22.8 Extrem Other: - Tinel's at cubital and carpal tunnel There is thenar atrophy Assessment & Plan Assessment & Plan (1) Numbness and tingling in left hand: Code(s): R20.0 - Anesthesia of skin; R20.2 - Paresthesia of skin Plan: Instrinsic atrophy a d difficulty sleeping at night in the setting of elbow, forearm and hand numbness/tingling. EMG/NCV ordered Orders: Orders NE electromyogram (EMG) Today R20.0 - Anesthesia of skin, R20.2 - Paresthesia of skin NE nerve conduction velocity Today R20.0 - Anesthesia of skin Coding Level of Care Code Est Pt Level 3 (93865) Diagnoses Numbness and tingling in left hand R20.0; R20.2
[2023-07-25 11:20] VITALS: BMI 22.8
== END 2023-07-25 11:55 | disposition home or self-care (01) ==
PROVIDERS: PCP Internal Medicine; Visit Provider Orthopaedic Surgery
DX: R20.0 Anesthesia of skin (principal); R20.2 Paresthesia of skin
CPT/HCPCS: 99213

== ENCOUNTER → 2023-07-25 11:02 | Outpatient (BNVA) | payer MEDICARE, SELFPAY | PROVIDERS: PCP Internal Medicine; Visit Provider Orthopaedic Surgery | DX: R20.0 Anesthesia of skin (principal); R20.2 Paresthesia of skin | CPT/HCPCS: 99212 ==

== ENCOUNTER 2023-07-28 06:05 | Outpatient (REF) | payer MEDICARE, SELFPAY ==
[2023-07-28 10:56] LABS: Anion Gap 10 (12-20); Blood Urea Nitrogen 15 mg/dL (9-16); Calcium 9.6 mg/dL (8.4-10.2); Carbon Dioxide 27 mmol/L (22-29); Chloride 106 mmol/L (96-108); Cholesterol 203 mg/dL (<200); Estimated Glomerular Filt Rate > 60; Glucose Fasting 96 mg/dL (60-99); HDL Cholesterol 59 mg/dL (>40); LDL Cholesterol Calculated 128 mg/dL (<100); Potassium 4.4 mmol/L (3.3-5.1); Sodium 139 mmol/L (135-145); Triglycerides 81 mg/dL (<150)
[2023-07-28 11:25] LABS: Prostate Specific Antigen 1.02 ng/mL (<0.05-4.0)
== END 2023-07-28 06:06 | disposition home or self-care (01) ==
LOC: HO.HMGCLDS 06:05
PROVIDERS: PCP Internal Medicine; Referring Provider Urology; Visit Provider Internal Medicine
DX: I10 Essential (primary) hypertension (principal); I65.23 Occlusion and stenosis of bilateral carotid arteries; N40.1 Benign prostatic hyperplasia with lower urinary tract symptoms; N13.8 Other obstructive and reflux uropathy; Z12.5 Encounter for screening for malignant neoplasm of prostate
CPT/HCPCS: 36415; 80048; 80061; 84153

== ENCOUNTER 2023-08-14 10:52 | Outpatient (AMB) | payer MEDICARE, SELFPAY ==
--- NOTE | 2023-08-14 11:07 | MHC.PC.OV ---
Vital Signs 08/14/23 11:20 Height 5 ft 8 in Weight 148 lb BMI 22.5 BP 122/66 Blood Pressure Location Lt brachial Position Sitting Pulse 70 Pulse Source Pulse Oximeter Pulse Oximetry (%) 97 Oxygen Delivery Method Room Air Intake Visit Reasons: 1 year follow up Intake Note: Pt is here today his 1 year f/u Allergies Fish Containing Products Allergy (Severe, Verified 08/14/23 11:47) ANAPHYLAXIS hydromorphone [From DILAUDID] Allergy (Severe, Verified 08/14/23 11:47) CHILLS,DIAPHORESIS povidone-iodine [From BETADINE] Allergy (Severe, Verified 08/14/23 11:47) ANAPHYLAXIS timolol [TIMOLOL] Allergy (Severe, Verified 08/14/23 11:47) ANAPHYLAXIS ENVIROMENTAL Allergy (Intermediate, Uncoded 08/14/23 11:47) HAYFEVER Lamisil Allergy (Unknown, Uncoded 08/14/23 11:47) Nausea/Dizzy/Airway trouble Medication List - Last Reconciled 08/14/23 by Chela Mansfield MD albuterol sulfate 2.5 mg (3 mL) continuous nebulization Q6H PRN azelaic acid 15% topical betamethasone dipropionate 0.05% topical dupilumab 200 mg subcut .q month epinephrine 0.3 mg (0.3 mL) IM ONCE PRN finasteride 5 mg PO DAILY fluticasone propionate 50 mcg/actuation 1 spray intranasal DAILY 90 days levalbuterol tartrate 45 mcg/actuation 1 inh PO Q4H PRN levocetirizine (Xyzal) 5 mg PO QPM lisinopril 5 mg PO DAILY Symbicort 80-4.5 mcg/actuation (budesonide-formoterol) 2 inhalations PO BID NS travoprost 0.004% 1 drp ophthalmic (eye) valacyclovir mg PO PRN Tobacco use date assessed: 08/14/23 Fall risk assessment: No Falls in past year Last assessed Fall Risk: 08/14/23 Dental Screening Dental Screen Date: 08/14/23 Did you have a dental visit in the last 12 months?: Yes Did you have a dental problem in the last 6 months where you did not have access to dental care?: No Was dental information given to patient?: Patient has dentist HPI 1 year follow up HPI Details 78-year-old male here today for follow-up for his hypertension. Blood pressure has been stable controlled on lisinopril 5 mg daily . Stays active, and has been trying to follow a healthy diet. Has been feeling well with no complaints at present time. [facility] Medical History (Updated 08/14/23 @ 17:27 by Chela Mansfield MD) Rosacea Cervical dystonia Essential and other specified forms of tremor Coarse tremors History of eye prosthesis RBBB (right bundle branch block) Mild intermittent asthma Tremor of both hands COVID-19 vaccine series completed PONV (postoperative nausea and vomiting) Post-nasal drip Alopecia Basal cell carcinoma Retinal vein occlusion of right eye Psoriasis Spinal stenosis Nephrolithiasis Inguinal hernia Essential hypertension Glaucoma Renal oncocytoma BPH (benign prostatic hyperplasia) Cervicalgia Surgical History (Updated 08/14/23 @ 17:22 by Chela Mansfield MD) S/P left rotator cuff repair Hx of repair of right rotator cuff History of carpal tunnel surgery of right wrist H/O: vasectomy History of cataract surgery H/O circumcision H/O enucleation of right eyeball H/O ventral hernia repair Hx of cholecystectomy H/O left inguinal hernia repair H/O lithotripsy H/O partial nephrectomy S/P cervical discectomy History of orchiectomy Family History Father CVD (cardiovascular disease) HTN (hypertension) Social History Housing: House Are you a primary career development associate to a significant other at home: No Do you presently have visiting nurse or other home services: No Alcohol intake: never Patient Tobacco Use Status: Former Tobacco user Quit Date: 23 yrs ago Tobacco use type: Cigarette Years Smoked: 20 yrs e-Cigarette/Vaping Use: Never Used Second Hand Smoke Exposure: No service: No Current occupational status: retired Current occupation: lt handed Cognitive needs: No Hearing needs: No Vision needs: Yes Questionnaire PHQ-9 Over the last 2 weeks, how often have you been bothered by any of the following problems? 1. Little interest or pleasure in doing things: not at all 2. Feeling down, depressed, or hopeless: not at all 3. Trouble falling or staying asleep, or sleeping too much: several days 4. Feeling tired or having little energy: not at all 5. Poor appetite or overeating: not at all 6. Feeling bad about yourself - or that you are a failure or have let yourself or your family down: not at all 7. Trouble concentrating on things, such as reading the newspaper or watching television: not at all 8. Moving or speaking so slowly that other people could have noticed. Or the opposite - being so fidgety or restless that you have been moving around a lot more than usual: not at all 9. Thoughts that you would be better off or of hurting yourself in some way: not at all Total score: 1 Depression Screening Interpretation: Negative Depression Screening Done: Yes 90825 - PHQ-9 Billing: Yes Source: Developed by Drs. Brandon De La Torre, Masha Conti, Bridger Corral and colleagues, with an educational ling from [employer]. Thrive Questionnaire Date Thrive assessed: 08/14/23 I am a: Patient What is your living situation today?: I have a steady place to live Within the past 12 months, did the food you bought not last and you didn't have the money to get more?: Never true Within the past 12 months, did you worry whether your food would run out before you got money to buy more?: Never true Do you have trouble paying for medicines?: No Do you have trouble getting transportation to medical appointments?: No Do you have trouble paying your heating and electricity bill?: No Do you have trouble taking care of your child, family member or friend?: No Do you have trouble with day-to-day activities such as bathing, preparing meals, shopping, managing finances, etc.?: No Are you currently unemployed and looking for a job?: No Are you interested in more education?: No THRIVE Score: 0 AUDIT C Alcohol Use Questionnaire (AUDIT-C) 1. How often do you have a drink containing alcohol?: Never Total Score: 0 LLOYD-7 AMB Questionnaire LLOYD-7 Date LLOYD - 7 assessed: 08/14/23 Feeling nervous, anxious, or on edge: 0 = Not at all Not being able to stop or control worryin = Not at all Worrying too much about different things: 0 = Not at all Trouble relaxin = Not at all Being so restless that it is hard to sit still: 0 = Not at all Becoming easily annoyed or irritable: 0 = Not at all Feeling afraid as if something awful might happen: 0 = Not at all Total LLOYD-7 score (0-4 normal; 5-9 mild; 10-14 moderate; 15-21 severe): 0 Source: Developed by Drs. Brandon De La Torre, Masha Conti, Bridger Corral and colleagues, with an educational ling from [employer]. LLOYD-7 Assessment Billing LLOYD-7 Assessment Tool: LLOYD-7 Assessment 18316 Review of Systems Const Reports no additional complaints ENT Reports Normal hearing present Card Denies chest pain, Denies chest pain at rest, Denies chest pain with activity and Denies pedal edema Resp Denies cough GI Denies abdominal pain Musc Denies abnormal gait, Denies muscle cramps and Denies radiating pain into limb Skin/Breast Denies skin ulcer and Denies wounds Neuro Reports Normal hearing present and Denies abnormal gait Psych Reports no additional complaints Physical exam (Primary Care) Vital Signs: Last Vital Signs Pulse 70 08/14/23 11:20 BP 122/66 08/14/23 11:20 Pulse Ox 97 08/14/23 11:20 Oxygen Delivery Method Room Air 08/14/23 11:20 BMI result Body Mass Index 22.5 Tobacco/Smoking Status: Tobacco use Status Tobacco use date assessed 08/14/23 08/14/23 11:25 Patient Tobacco Use Status Former Tobacco user 08/14/23 11:07 Tobacco use type Cigarette 08/14/23 11:07 e-Cigarette/Vaping Use Never Used 08/14/23 11:07 PHQ-9: PHQ-9 Score PHQ-9: Total score 1 08/14/23 13:16 Depression Screening Interpretation: Negative Thrive Assessment: Date of Thrive Assessment Date Thrive assessed 08/14/23 08/14/23 13:16 Const Other: Alert oriented x3, ambulatory normal gait Orientation/consciousness: patient oriented x3 Neck Other: Supple with no lymphadenopathy palpated Resp Auscultation: clear to auscultation bilaterally Cardio Other: S1-S2 present regular rate and rhythm GI Other: Normal bowel sounds, soft, nontender, no mass palpated Neuro General: patient oriented x3, gait normal, tone normal, moves all extremities, Normal light touch and pain sensation and no focal motor deficits Cranial nerves: Yes Normal hearing present Extrem General: Yes full ROM Results Reviewed Results Reviewed: Name: Juve Eaton Age/Sex: 78/M : 1945 Unit#: [id number] Attend Dr: Chela Mansfield MD Re07/28/23 Status: DEP [facility] Disch: SPEC : [id number] KIERA: 07/28/23 STATUS: COMP REQ : [id number] RECD: 07/28/[address]: Chela Mansfield MD COMP: 07/28/23 ENTERED: 07/28/23 [facility] DR: ORDERED: Met Prof Fast, Lipid Panel Test Result Flag Reference Sodium 139 135-145 mmol/L Potassium 4.4 3.3-5.1 mmol/L CL 106 96-108 mmol/L CO2 27 22-29 mmol/L Gap 10 L 12-20 BUN 15 9-16 mg/dL Creat 0.92 0.5-1.4 mg/dL EGFR > 60 NOTE: For -[place] individuals, multiply the result by 1.210. Chronic Kidney Disease: Estimated GFR < 60 mL/min/1.73m2 Severe Kidney Disease: Estimated GFR < 15 mL/min/1.73m2 FBS 96 60-99 mg/dL CA 9.6 8.4-10.2 mg/dL Triglyceride 81 <150 mg/dL Desirable Triglyceride: less than 150 mg/dL Borderline High Triglyceride 150-199 mg/dL High Triglyceride: 200-499 mg/dL Very High Triglyceride: greater than or equal to 5OO mg/dL Cholesterol 203 H <200 mg/dL Desirable Cholesterol: less than 200 mg/dL Borderline High Cholesterol: 200-239 mg/dL High Cholesterol: greater than 239 mg/dL LDL Calculated 128 H <100 mg/dL Desirable LDL: less than 100 mg/dL Near Optimal/Above Optimal LDL: 110-129 mg/dL Borderline High LDL: 130-159 mg/dL High LDL: 160-189 mg/dL Very High LDL: greater than or equal to 190 mg/dL HDL 59 >40 mg/dL Desirable HDL: greater than 40 mg/dL Note: This HDL assay may give artificially low results in patients with liver disease. Assessment and Plan Assessment & Plan (1) Essential hypertension: Code(s): I10 - Essential (primary) hypertension Plan: Blood pressure at goal of less than 130/80. Continue lisinopril 5 mg daily. Reinforced importance of following a low sodium diet, getting regular exercise, and lowering stress levels. (2) Mild intermittent asthma: Code(s): J45.20 - Mild intermittent asthma, uncomplicated Qualifiers: Asthma complication type: uncomplicated Qualified Code(s): J45.20 - Mild intermittent asthma, uncomplicated Plan: Continue Symbicort and has leave albuterol inhaler which she uses as needed (3) Allergic rhinitis: Code(s): J30.9 - Allergic rhinitis, unspecified Qualifiers: Allergic rhinitis trigger: unspecified Allergic rhinitis seasonality: unspecified Qualified Code(s): J30.9 - Allergic rhinitis, unspecified Plan: Takes levocetirizine 5 mg once tablet at night as needed Orders: Orders Basic Metabolic Panel Fasting 01/05/24 I10 - Essential (primary) hypertension Aspartate Amino Transferase 01/05/24 I10 - Essential (primary) hypertension Alanine Aminotransferase 01/05/24 I10 - Essential (primary) hypertension Lipid Panel 01/05/24 I10 - Essential (primary) hypertension Coding Level of Care Code Est Pt Level 4 (04947) Diagnoses Essential hypertension I10 Mild intermittent asthma without complication J45.20 Asthma complication type: uncomplicated Allergic rhinitis, unspecified seasonality, unspecified trigger J30.9 Allergic rhinitis trigger: unspecified Allergic rhinitis seasonality: unspecified Additional Codes LLODY-7 Assessment Billing - LLOYD-7 Assessment Tool: LLOYD-7 Assessment [id number] ([id number])
[2023-08-14 11:20] VITALS: BP 122/66; PULSE 70; O2SAT 97; BMI 22.5
== END 2023-08-14 12:13 | disposition home or self-care (01) ==
PROVIDERS: Visit Provider Internal Medicine
DX: I10 Essential (primary) hypertension (principal); J45.20 Mild intermittent asthma, uncomplicated; J30.9 Allergic rhinitis, unspecified
CPT/HCPCS: 99214

== ENCOUNTER 2023-08-15 08:11 | Outpatient (REF) | payer MEDICARE, SELFPAY ==
--- NOTE | 2023-08-15 08:15 | EMG_ITS ---
Chief complaint: Numbness and pain on left medial elbow going to forearm. Denies numbness in fingers. Past EMG done, patient can not remember results. History of left rotator cuff surgery and right Carpal Tunnel Syndrome surgery. Noted atrophy on left FDI. Weak left 5th digit flexion. Reason for referral: Evaluate for ulnar neuropathy Referred by: Dr. Mitchell Procedure done: Left upper extremity NCS/EMG Precautions and/or limitations: None The limb temperature was monitored continuously and remained between 32-36 degrees C during the performance of the NCS. Ulnar motor NCS was performed with moderate elbow flexion between 70-90 degrees, with across-elbow distance of 10 cm. Nerve Conduction Studies Anti Sensory Summary Table ?Stim Site NR Onset (ms) Norm Onset (ms) Peak (ms) Norm Peak (ms) O-P Amp (?V) Norm O-P Amp Site1 Site2 Delta-0 (ms) Dist (cm) Gigi (m/s) Norm Gigi (m/s) Left Median Anti Sensory (2nd Digit) Wrist ? 4.6 5.8 <3.6 1.3 >10 Wrist 2nd Digit 4.6 14.0 30 Left Radial Anti Sensory (Thumb) Forearm ? 1.3 1.8 <3.1 12.2 Forearm Thumb 1.3 0.0 Left Ulnar Anti Sensory (5th Digit) Wrist ? 4.2 4.8 <3.7 7.4 >15.0 Wrist 5th Digit 4.2 14.0 33 Motor Summary Table ?Stim Site NR Onset (ms) Norm Onset (ms) O-P Amp (mV) Norm O-P Amp iAmp (mV) Amp (1st) (%) Site1 Site2 Delta-0 (ms) Dist (cm) Gigi (m/s) Norm Gigi (m/s) Left Median Motor (Abd Poll Brev) Wrist ? 6.0 <3.9 8.4 >4.5 10.0 100.0 Elbow Wrist 5.4 24.0 44 >45 Elbow ? 11.4 8.1 9.8 96.4 Left Ulnar Motor (Abd Dig Minimi) Wrist ? 3.9 <3.0 11.3 >5 13.4 100.0 B Elbow Wrist 4.1 19.5 48 >45 B Elbow ? 8.0 10.0 12.2 88.5 A Elbow B Elbow 2.3 10.0 43 >45 A Elbow ? 10.3 9.0 11.2 79.6 EMG ?Side Muscle Nerve Root Ins Act Fibs Psw Amp Dur Poly Recrt Int Pat Comment Left 1stDorInt Ulnar C8-T1 Incr 1+ 1+ Nml Nml 0 Nml Complete Left Biceps Musculocut C5-6 Nml Nml Nml Nml Nml 0 Nml Complete Left Triceps Radial C6-7-8 Nml Nml Nml Nml Nml 0 Nml Complete Left Deltoid Axillary C5-6 Nml Nml Nml Nml Nml 0 Nml Complete Left FlexCarpiUln Ulnar C8,T1 Incr 1+ 1+ Nml Nml 0 Nml Complete FINDINGS: Left ulnar motor nerve showed prolonged distal latency, normal amplitude and slow conduction velocity across elbow. Left median motor nerve showed prolonged distal latency, normal amplitude and slow conduction velocity. Left ulnar sensory nerve showed prolonged peak latency and small amplitude. Left median sensory nerve showed prolonged peak latency and small amplitude. All other nerves tested were within normal. Concentric needle EMG was performed in selected muscles of the left upper extremity. Study revealed signs of electric abnormalities as shown in the table below. Left FDI and FCU showed increased insertional activity, PSWs and fibrillations. IMPRESSION: 1. This is an abnormal study. 2. 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 3. There is electrodiagnostic evidence for left moderate-severe median neuropathy at the wrist, consistent with carpal tunnel syndrome. 4. There is no electrodiagnostic evidence for brachial plexopathy or cervical radiculopathy. Thank you for your kind referral. Marlyn Saldana MD, EDYTA Board Certified, [place] [employer] and Rehabilitation (ABPMR) Board Certified, [place] Board of Electrodiagnostic Medicine (ABEM) CODIN [id number] [facility]
== END 2023-08-15 08:12 | disposition home or self-care (01) ==
LOC: HO.NEURO 08:11
PROVIDERS: PCP Internal Medicine; Visit Provider Orthopaedic Surgery
DX: R20.0 Anesthesia of skin (principal); R20.2 Paresthesia of skin
CPT/HCPCS: 95886; 95909

== ENCOUNTER → 2023-08-15 08:15 | Outpatient (BNV) | payer MEDICARE, SELFPAY | PROVIDERS: PCP Internal Medicine; Visit Provider Physical Medicine & Rehabilitation | DX: G56.02 Carpal tunnel syndrome, left upper limb (principal); G56.22 Lesion of ulnar nerve, left upper limb; G56.12 Other lesions of median nerve, left upper limb | CPT/HCPCS: 95886; 95909 ==

== ENCOUNTER 2023-09-08 11:18 | Outpatient (AMB) | payer MEDICARE, SELFPAY ==
--- NOTE | 2023-09-08 11:21 | MHC.OFFVIS ---
Vital Signs 09/08/23 11:24 Height 5 ft 8 in Weight 148 lb BMI 22.5 Handedness Right Intake Visit Reasons: New Prob - Left Cubital/Carpal Tunnel - EMG done Intake Note: Juve is a 78 year old left hand dominant male who presents today for a evaluation of his left hand numbness, EMG was done on 08/15/23. Patient reports having numbness and tingling symptoms for about a year and its been getting worse. He expresses that his symptoms are worse at night and when resting his elbow. Patient would like to discuss surgery and see his options. Allergies Fish Containing Products Allergy (Severe, Verified 08/14/23 11:47) ANAPHYLAXIS hydromorphone [From DILAUDID] Allergy (Severe, Verified 08/14/23 11:47) CHILLS,DIAPHORESIS povidone-iodine [From BETADINE] Allergy (Severe, Verified 08/14/23 11:47) ANAPHYLAXIS timolol [TIMOLOL] Allergy (Severe, Verified 08/14/23 11:47) ANAPHYLAXIS ENVIROMENTAL Allergy (Intermediate, Uncoded 08/14/23 11:47) HAYFEVER Lamisil Allergy (Unknown, Uncoded 08/14/23 11:47) Nausea/Dizzy/Airway trouble HPI HPI New Prob - Left Cubital/Carpal Tunnel - EMG done: Details: 78-year-old left hand dominant male who presents in the office today for a follow up of left upper extremity numbness. Patient was last seen in the office by Dr. Mitchell on 07/25/2023 While in the office today the patient reports left hand and elbow numbness and tingling, with presence of symptoms with gradual increase for 1-1.5 years. He reports most of his symptoms are present at night waking him up. He states the numbness and tingling is present 20-30 percent of the day with rare occasions of resolution. Patient reports numbness and tingling in the right upper extremity but reports this is not as bothersome as the left upper extremity is. Patient has an allergy history, as follows: -Fish containing products; anaphylaxis -Hydromorphone; chills diaphoresis -Povidone-iodine; anaphlaxis -Timolol; anaphlaxis -Enviromental hayfever -Lamisil; nausea, dizziness, airway trouble. Patient is currently taking, as follows: -Albuterol sulfate 2.5 mg continuous nebulization Q6H PRN -Azelaic acid 15% topical -Betamethasone Dipropionate 0.05% topical -Dupilumab 200 mg subcut Qmonth -Epinephrine 0.3 mg IM once PRN -Finasteride 5 mg PO Daily -Fluticasone propionate 50 mcg/actuation 1 spray intranasal daily -Levalbuterol tartrate 45 mcg/actuation 1 inhalation PO Q4H PRN -Levocetirizine 5 mg PO daily -Lisinopril 58 mg PO daily -Symbicort 80-4.5 mcg/actuation 2 inhalations PO BID -Travoprost 1 drop ophthalmic -Valacyclovir PO PRN Patient has a medical history, as follows: -Rosacea -Raynaud's disease -Mild intermittent asthma -Psoriasis -Spinal stenosis -Nephrolithiasis -Hypertension -Glaucoma -Renal oncocytoma -BPH -Cervicalgia -Tremor of both hands -History of eye prosthesis; right -RBBB (right bundle branch block) -PONV (postoperative nausea and vomiting) - Alopecia Patient has a surgical history, as follows: -Hx of left rotator cuff repair -Hx of repair of right rotator cuff; 01/2021- Dr. Mitchell -Hx of carpal tunnel surgery of right wrist; 04/2019- Dr. Curtis -Hx of vasectomy -Hx of cataract surgery -Hx ofcircumcision -Hx of enucleation of right eyeball; 2003 -Hx of ventral hernia repair; 2011 -Hx of cholecystectomy; 2002 -Hx of left inguinal hernia repair; 2013 -Hx of lithotripsy; 07/22/2018, 2009 -Hx of partial nephrectomy; right 07/02/2002 -Hx of cervical discectomy; C5-6 C6 to7, with fusion and titanium plate fixation June 11 2006 -Hx of orchiectomy; 07/04/2016 Patient has a social history, as follows: -Former smoker: Quit 23 years ago. [facility] Medical History (Updated 09/08/23 @ 11:43 by Giselle Brown) Rosacea Cervical dystonia Essential and other specified forms of tremor Coarse tremors History of eye prosthesis RBBB (right bundle branch block) Mild intermittent asthma Tremor of both hands COVID-19 vaccine series completed PONV (postoperative nausea and vomiting) Post-nasal drip Alopecia Basal cell carcinoma Retinal vein occlusion of right eye Psoriasis Spinal stenosis Nephrolithiasis Inguinal hernia Essential hypertension Glaucoma Renal oncocytoma BPH (benign prostatic hyperplasia) Cervicalgia Surgical History (Updated 08/14/23 @ 17:22 by Chela Mansfield MD) S/P left rotator cuff repair Hx of repair of right rotator cuff History of carpal tunnel surgery of right wrist H/O: vasectomy History of cataract surgery H/O circumcision H/O enucleation of right eyeball H/O ventral hernia repair Hx of cholecystectomy H/O left inguinal hernia repair H/O lithotripsy H/O partial nephrectomy S/P cervical discectomy History of orchiectomy Family History Father CVD (cardiovascular disease) HTN (hypertension) Social History Housing: House Are you a primary hourly caregiver to a significant other at home: No Do you presently have visiting nurse or other home services: No Alcohol intake: never Patient Tobacco Use Status: Former Tobacco user Quit Date: 23 yrs ago Tobacco use type: Cigarette Years Smoked: 20 yrs e-Cigarette/Vaping Use: Never Used Second Hand Smoke Exposure: No service: No Current occupational status: retired Current occupation: lt handed Cognitive needs: No Hearing needs: No Vision needs: Yes Review of Systems Const All systems reviewed & are unremarkable except as noted in HPI and below Physical Exam Vital Signs: BMI result Body Mass Index 22.5 Const General: cooperative and no acute distress Orientation/consciousness: patient oriented x3 Resp Effort & Inspection: normal respiratory effort and able to speak in complete sentences Cardio Peripheral pulses: Peripheral pulses 2+ throughout Skin General skin exam: no rashes or lesions noted Neuro General: patient oriented x3 Extrem Other: Left upper extremity: Normal to inspection. No ecchymosis, erythema, or edema. Full ROM of the left elbow. Able to perform full finger flexion, extension, abduction, adduction, finger cross, and thumbs up without deficit. Flat okay sign. Able to make a closed fist. Intrinsic muscle wasting. Thenar muscle wasting. Positive Tinel?s at the carpal and cubital tunnel. Sensation intact. Capillary refill is brisk. Radial pulse intact. Assessment & Plan Assessment & Plan (1) Left carpal tunnel syndrome: Code(s): G56.02 - Carpal tunnel syndrome, left upper limb Category: Medical (2) Cubital tunnel syndrome on left: Code(s): G56.22 - Lesion of ulnar nerve, left upper limb Category: Medical Plan Mr. Eaton is a 78-year-old left hand dominant male who presents in the office today for a follow up of left upper extremity numbness. Patient was last seen in the office by Dr. Mitchell on 07/25/2023 While in the office today the patient reports left hand and elbow numbness and tingling, with presence of symptoms with gradual increase for 1-1.5 years. He reports most of his symptoms are present at night waking him up. He states the numbness and tingling is present 20-30 percent of the day with rare occasions of resolution. Patient reports numbness and tingling in the right upper extremity but reports this is not as bothersome as the left upper extremity is. Patient has an allergy history, as follows: -Fish containing products; anaphylaxis -Hydromorphone; chills diaphoresis -Povidone-iodine; anaphlaxis -Timolol; anaphlaxis -Enviromental hayfever -Lamisil; nausea, dizziness, airway trouble. Patient is currently taking, as follows: -Albuterol sulfate 2.5 mg continuous nebulization Q6H PRN -Azelaic acid 15% topical -Betamethasone Dipropionate 0.05% topical -Dupilumab 200 mg subcut Qmonth -Epinephrine 0.3 mg IM once PRN -Finasteride 5 mg PO Daily -Fluticasone propionate 50 mcg/actuation 1 spray intranasal daily -Levalbuterol tartrate 45 mcg/actuation 1 inhalation PO Q4H PRN -Levocetirizine 5 mg PO daily -Lisinopril 58 mg PO daily -Symbicort 80-4.5 mcg/actuation 2 inhalations PO BID -Travoprost 1 drop ophthalmic -Valacyclovir PO PRN Patient has a medical history, as follows: -Rosacea -Raynaud's disease -Mild intermittent asthma -Psoriasis -Spinal stenosis -Nephrolithiasis -Hypertension -Glaucoma -Renal oncocytoma -BPH -Cervicalgia -Tremor of both hands -History of eye prosthesis; right -RBBB (right bundle branch block) -PONV (postoperative nausea and vomiting) - Alopecia Patient has a surgical history, as follows: -Hx of left rotator cuff repair -Hx of repair of right rotator cuff; 01/2021- Dr. Mitchell -Hx of carpal tunnel surgery of right wrist; 04/2019- Dr. Curtis -Hx of vasectomy -Hx of cataract surgery -Hx ofcircumcision -Hx of enucleation of right eyeball; 2003 -Hx of ventral hernia repair; 2011 -Hx of cholecystectomy; 2002 -Hx of left inguinal hernia repair; 2013 -Hx of lithotripsy; 07/22/2018, 2009 -Hx of partial nephrectomy; right 07/02/2002 -Hx of cervical discectomy; C5-6 C6 to7, with fusion and titanium plate fixation June 11 2006 -Hx of orchiectomy; 07/04/2016 Patient has a social history, as follows: -Former smoker: Quit 23 years ago. We discuss surgical and conservative treatment like bracing at this time. I would recommend moving forward with surgical intervention at this time due to the current presence of symptoms. I discussed in detail the procedure and what to expect pre and post operatively. We discussed the risks, benefits and alternatives to the surgery and the rehabilitation course. The risks include infection, bleeding, nerve injury, ongoing pain, swelling, and stiffness, perioperative risk of injury to bones and soft tissues, and blood clots. I have answered all questions and with their understanding they have consented to move forward with a left carpal and left cubital tunnel release to be performed by Dr. Akiko De Souza. Information was given to the surgical aides teacher today. Follow-up will be at the post operative appointment, or sooner if needed. EMG study of the left upper extremity, obtained on 08/15/2023, revealed: 1. This is an abnormal study. 2. 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 3. There is electrodiagnostic evidence for left moderate-severe median neuropathy at the wrist, consistent with carpal tunnel syndrome. 4. There is no electrodiagnostic evidence for brachial plexopathy or cervical radiculopathy. Patient Instructions: Scribed by Giselle Brown director medical science, for Lena Rush PA-C on 09/08/2023 at 11:32 am, EST. Coding Level of Care Code Est Pt Level 4 (70590) Diagnoses Left carpal tunnel syndrome G56.02 Cubital tunnel syndrome on left G56.22
[2023-09-08 11:24] VITALS: BMI 22.5
== END 2023-09-08 11:46 | disposition home or self-care (01) ==
PROVIDERS: PCP Internal Medicine; Visit Provider Physician Assistant
DX: G56.02 Carpal tunnel syndrome, left upper limb (principal); G56.22 Lesion of ulnar nerve, left upper limb
CPT/HCPCS: 99214

== ENCOUNTER → 2023-09-08 11:18 | Outpatient (BNVA) | payer MEDICARE, SELFPAY | PROVIDERS: PCP Internal Medicine; Visit Provider Physician Assistant | DX: G56.02 Carpal tunnel syndrome, left upper limb (principal); G56.22 Lesion of ulnar nerve, left upper limb | CPT/HCPCS: 99212 ==

== ENCOUNTER 2023-10-13 08:01 | Outpatient (AMB) | payer MEDICARE, SELFPAY ==
[2023-10-13 08:04] VITALS: BP 122/70; PULSE 70; TEMP 36.7; O2SAT 98; BMI 22.5
--- NOTE | 2023-10-13 08:04 | MHC.OFFWIV ---
Intake Vital Signs 10/13/23 08:04 Height 5 ft 8 in Weight 148 lb BMI 22.5 BP 122/70 Blood Pressure Location Lt brachial Position Sitting Pulse 70 Pulse Source Pulse Oximeter Temp 98.1 F Temp Source Temporal Artery Scan Pulse Oximetry (%) 98 Intake Visit Reasons: EP sinus pain cough Intake Note: pt is here for sinus pain with cough Patient Tobacco Use Status: Former Tobacco user Allergies Fish Containing Products Allergy (Severe, Verified 10/13/23 08:04) ANAPHYLAXIS hydromorphone [From DILAUDID] Allergy (Severe, Verified 10/13/23 08:04) CHILLS,DIAPHORESIS povidone-iodine [From BETADINE] Allergy (Severe, Verified 10/13/23 08:04) ANAPHYLAXIS timolol [TIMOLOL] Allergy (Severe, Verified 10/13/23 08:04) ANAPHYLAXIS ENVIROMENTAL Allergy (Intermediate, Uncoded 08/14/23 11:47) HAYFEVER Lamisil Allergy (Unknown, Uncoded 08/14/23 11:47) Nausea/Dizzy/Airway trouble Do you need a note to return to daycare/school/sports/work: No HPI HPI Comments History of Present Illness Details Patient presents to the walk in for sick visit reports sinus congestion and cough for last 1 week endorses clear nasal drainage and post nasal drip Denies fever, chest pain, palpitations, syncope, weakness Denies headache, sore throat. Taking Zyrtec for seasonal allergies has been using alb inhaler more frequently has nebulizer at home but has not needed to use that yet scheduled for carpal tunnel surgery in 1 month and doesn't want this to postpone it PFSH Medical History (Updated 09/08/23 @ 11:43 by Giselle Brown) Rosacea Cervical dystonia Essential and other specified forms of tremor Coarse tremors History of eye prosthesis RBBB (right bundle branch block) Mild intermittent asthma Tremor of both hands COVID-19 vaccine series completed PONV (postoperative nausea and vomiting) Post-nasal drip Alopecia Basal cell carcinoma Retinal vein occlusion of right eye Psoriasis Spinal stenosis Nephrolithiasis Inguinal hernia Essential hypertension Glaucoma Renal oncocytoma BPH (benign prostatic hyperplasia) Cervicalgia Surgical History (Updated 08/14/23 @ 17:22 by Chela Mansfield MD) S/P left rotator cuff repair Hx of repair of right rotator cuff History of carpal tunnel surgery of right wrist H/O: vasectomy History of cataract surgery H/O circumcision H/O enucleation of right eyeball H/O ventral hernia repair Hx of cholecystectomy H/O left inguinal hernia repair H/O lithotripsy H/O partial nephrectomy S/P cervical discectomy History of orchiectomy Family History Father CVD (cardiovascular disease) HTN (hypertension) Social History Housing: House Are you a primary janitor caretaker to a significant other at home: No Do you presently have visiting nurse or other home services: No Alcohol intake: never Patient Tobacco Use Status: Former Tobacco user Tobacco use type: Cigarette Years Smoked: 20 yrs e-Cigarette/Vaping Use: Never Used Second Hand Smoke Exposure: No service: No Current occupational status: retired Current occupation: lt handed Cognitive needs: No Hearing needs: No Vision needs: Yes Review of Systems Const All systems reviewed & are unremarkable except as noted in HPI and below Physical Exam Vital Signs: Last Vital Signs Temp 98.1 F 10/13/23 08:04 Pulse 70 10/13/23 08:04 BP 122/70 10/13/23 08:04 Pulse Ox 98 10/13/23 08:04 BMI result Body Mass Index 22.5 General: awake, alert, oriented. Answers questions appropriately. Fully engaged in examination. Skin: warm, dry, intact HEENT: TMs intact bilaterally, no redness. Posterior pharynx without erythema or exudate. Sclera without icterus or injection. Cardiac: External chest normal in appearance. Respiratory: +cough. LSCTAB. Abdomen: without gross distension. Neurological: Oriented to person, place, time and situation. Thought process intact. Psychiatric: Appropriate mood and affect. Good judgment and insight. Assessment & Plan Assessment & Plan (1) Upper respiratory tract infection: Code(s): J06.9 - Acute upper respiratory infection, unspecified Qualifiers: URI type: unspecified viral URI Qualified Code(s): J06.9 - Acute upper respiratory infection, unspecified Plan URI, no abx warranted. Prednisone 40 mg p.o. b.i.d. x5 days Rest, drink plenty of fluids, tylenol or motrin as needed. Recommend taking OTC nasal decongestants Follow up with pcp or in clinic for any new or worsening symptoms. Go to ER for shortness of breath, chest pain, palpitations, weakness, dizziness. Medications: New prednisone 40 mg (2 x 20 mg) PO DAILY 5 days 10 tabs 0RF Coding Level of Care Code Est Pt Level 3 (19449) Diagnoses Viral upper respiratory tract infection J06.9 URI type: unspecified viral URI
== END 2023-10-13 09:07 | disposition home or self-care (01) ==
PROVIDERS: PCP Internal Medicine; Visit Provider Registered Nurse Emergency
DX: J06.9 Acute upper respiratory infection, unspecified (principal)
CPT/HCPCS: 99213

== ENCOUNTER 2023-10-20 08:05 | Outpatient (AMB) | payer MEDICARE, SELFPAY ==
--- NOTE | 2023-10-20 08:08 | AM.OFFWIN_ITS ---
Intake Vital Signs 10/20/23 08:09 Height 5 ft 8 in Weight 147 lb BMI 22.3 BP 122/70 Blood Pressure Location Rt brachial Position Sitting Pulse 72 Pulse Source Pulse Oximeter Temp 98.0 F Temp Source Oral Pulse Oximetry (%) 97 Intake Visit Reasons: EP ?sinus Intake Note: pt is here for possible sinus infection Patient Tobacco Use Status: Former Tobacco user Allergies Fish Containing Products Allergy (Severe, Verified 10/20/23 08:09) ANAPHYLAXIS hydromorphone [From DILAUDID] Allergy (Severe, Verified 10/20/23 08:09) CHILLS,DIAPHORESIS povidone-iodine [From BETADINE] Allergy (Severe, Verified 10/20/23 08:09) ANAPHYLAXIS timolol [TIMOLOL] Allergy (Severe, Verified 10/20/23 08:09) ANAPHYLAXIS ENVIROMENTAL Allergy (Intermediate, Uncoded 08/14/23 11:47) HAYFEVER Lamisil Allergy (Unknown, Uncoded 08/14/23 11:47) Nausea/Dizzy/Airway trouble Do you need a note to return to daycare/school/sports/work: No HPI HPI Comments History of Present Illness Details Patient is a 78-year-old male with a history of asthma complaining of 3 weeks of cough and wheezing. He states he has been using his inhalers his albuterol nebulizer and just finished a prednisone burst 2 days ago. He states he feels a little bit better but it is lingering and he is going to have surgery soon. He denies any fevers, shortness of breath. He states he feels like he is wheezing. [facility] Medical History (Updated 09/08/23 @ 11:43 by Giselle Brown) Rosacea Cervical dystonia Essential and other specified forms of tremor Coarse tremors History of eye prosthesis RBBB (right bundle branch block) Mild intermittent asthma Tremor of both hands COVID-19 vaccine series completed PONV (postoperative nausea and vomiting) Post-nasal drip Alopecia Basal cell carcinoma Retinal vein occlusion of right eye Psoriasis Spinal stenosis Nephrolithiasis Inguinal hernia Essential hypertension Glaucoma Renal oncocytoma BPH (benign prostatic hyperplasia) Cervicalgia Surgical History (Updated 08/14/23 @ 17:22 by Chela Mansfield MD) S/P left rotator cuff repair Hx of repair of right rotator cuff History of carpal tunnel surgery of right wrist H/O: vasectomy History of cataract surgery H/O circumcision H/O enucleation of right eyeball H/O ventral hernia repair Hx of cholecystectomy H/O left inguinal hernia repair H/O lithotripsy H/O partial nephrectomy S/P cervical discectomy History of orchiectomy Family History Father CVD (cardiovascular disease) HTN (hypertension) Social History Housing: House Are you a primary personal care home administrator to a significant other at home: No Do you presently have visiting nurse or other home services: No Alcohol intake: never Patient Tobacco Use Status: Former Tobacco user Tobacco use type: Cigarette Years Smoked: 20 yrs e-Cigarette/Vaping Use: Never Used Second Hand Smoke Exposure: No service: No Current occupational status: retired Current occupation: lt handed Cognitive needs: No Hearing needs: No Vision needs: Yes Review of Systems Const All systems reviewed & are unremarkable except as noted in HPI and below Physical Exam Vital Signs: Last Vital Signs Temp 98.0 F 10/20/23 08:09 Pulse 72 10/20/23 08:09 BP 122/70 10/20/23 08:09 Pulse Ox 97 10/20/23 08:09 BMI result Body Mass Index 22.3 Const General: cooperative, healthy appearing, comfortable and no acute distress Orientation/consciousness: patient oriented x3 Limitations: no limitations HEENT Head: Yes normal to inspection Ears: external ears normal and TM's normal bilaterally General nose exam: Normal external nose present, Normal nares present and No nasal discharge present Face and sinus: Yes normal facial exam and Yes sinuses nontender Mouth: Normal oral and palatal mucosa present and moist mucous membranes Throat: Yes tonsils normal, Yes uvula midline and Yes posterior oropharynx abnormal (Erythematous) Eyes General: appearance normal, both eyes and all related structures Neck Neck: Yes normal visual inspection Resp Effort & Inspection: normal respiratory effort, able to speak in complete sentences, Actively coughing, no respiratory distress, not tachypneic, no tripod positioning and no use of accessory muscles Auscultation: clear to auscultation bilaterally Cardio Rate: regular rate Rhythm: regular rhythm Heart sounds: normal S1 and S2 Skin General skin exam: no rashes or lesions noted Neuro General: patient oriented x3 Extrem General: Yes normal to inspection and Yes no clubbing, cyanosis or edema Assessment & Plan Assessment & Plan (1) Upper respiratory tract infection: Code(s): J06.9 - Acute upper respiratory infection, unspecified Qualifiers: URI type: unspecified viral URI Qualified Code(s): J06.9 - Acute upper respiratory infection, unspecified Plan: will treat for copd exacerbation however lungs were cta. Will get CXR as well, possibly sending Augmentin if CXR positive for PNA Plan see above Medications: New azithromycin For 250 mg dose pack: take 500 mg today (day 1), then 250 mg for 4 days (days 2-5) PO 6 tabs 0RF Coding Level of Care Code Est Pt Level 4 (50586) Diagnoses Viral upper respiratory tract infection J06.9 URI type: unspecified viral URI
[2023-10-20 08:09] VITALS: BP 122/70; PULSE 72; TEMP 36.7; O2SAT 97; BMI 22.3
== END 2023-10-20 09:03 | disposition home or self-care (01) ==
PROVIDERS: PCP Internal Medicine; Visit Provider Physician Assistant
DX: J06.9 Acute upper respiratory infection, unspecified (principal)
CPT/HCPCS: 99214

== ENCOUNTER 2023-10-20 08:51 | Outpatient (REF) | payer MEDICARE, SELFPAY ==
--- NOTE | ~2023-10-20 | XR_ITS ---
EXAMINATION: XR CHEST CLINICAL INFORMATION: Cough COMPARISON: Chest x-ray on 09/15/2018 TECHNIQUE: 2 views of the chest were obtained. FINDINGS: vascularity. LUNGS: Lungs are clear. No pneumothorax is seen. BONES: Bony skeleton is intact. Lower cervical spine ACDF, fixation with metallic plate and cortical screws is partially visualized. Surgical anchors are seen in bilateral humeral heads. XR/XR chest 2V IMPRESSION: 1. Interval resolution of left posterior basal subsegmental atelectasis. 2. No radiographic signs of acute cardiopulmonary process. 3. Unchanged status post cervical spine ACDF and bilateral shoulder repair surgery.
== END 2023-10-20 08:52 | disposition home or self-care (01) ==
LOC: HO.HMGCX 08:51
PROVIDERS: PCP Internal Medicine; Visit Provider Physician Assistant
DX: R05.9 Cough, unspecified (principal)
CPT/HCPCS: 71046

== ENCOUNTER 2023-10-22 13:07 | Outpatient (AMB) | payer MEDICARE, SELFPAY ==
[2023-10-22 13:28] VITALS: BP 122/66; PULSE 71; O2SAT 98; BMI 22.2
--- NOTE | 2023-10-22 13:28 | MHC.PC.OV ---
Vital Signs 10/22/23 13:28 Height 5 ft 8 in Weight 146 lb BMI 22.2 BP 122/66 Blood Pressure Location Rt brachial Position Sitting Pulse 71 Pulse Source Pulse Oximeter Pulse Oximetry (%) 98 Intake Visit Reasons: ?abt/steroid failure Intake Note: Pt is here today been to our walkin the URI is on steriods and abx and sx's still lingering and comes back to be put on abx again Allergies Fish Containing Products Allergy (Severe, Verified 10/24/23 02:38) ANAPHYLAXIS hydromorphone [From DILAUDID] Allergy (Severe, Verified 10/24/23 02:38) CHILLS,DIAPHORESIS povidone-iodine [From BETADINE] Allergy (Severe, Verified 10/24/23 02:38) ANAPHYLAXIS timolol [TIMOLOL] Allergy (Severe, Verified 10/24/23 02:38) ANAPHYLAXIS ENVIROMENTAL Allergy (Intermediate, Uncoded 10/24/23 02:38) HAYFEVER Lamisil Allergy (Unknown, Uncoded 10/24/23 02:38) Nausea/Dizzy/Airway trouble Medication List - Last Reconciled 10/24/23 by Chela Mansfield MD albuterol sulfate 2.5 mg (3 mL) continuous nebulization Q6H PRN amoxicillin-pot clavulanate 875-125 mg 1 tab PO Q12H azelaic acid 15% topical azelastine 2 sprays intranasal BID betamethasone dipropionate 0.05% topical dupilumab 200 mg subcut .q month epinephrine 0.3 mg (0.3 mL) IM ONCE PRN finasteride 5 mg PO DAILY fluticasone propion-salmeterol 250-50 mcg/dose (Wixela Inhub) 1 inh inhalation Q12H fluticasone propionate 50 mcg/actuation 1 spray intranasal DAILY 90 days levalbuterol tartrate 45 mcg/actuation 1 inh PO Q4H PRN levocetirizine (Xyzal) 5 mg PO QPM lisinopril 5 mg PO DAILY travoprost 0.004% 1 drp ophthalmic (eye) valacyclovir mg PO PRN Tobacco use date assessed: 10/22/23 Fall risk assessment: No Falls in past year Last assessed Fall Risk: 10/22/23 Dental Screening Dental Screen Date: 10/22/23 Did you have a dental visit in the last 12 months?: No Was dental information given to patient?: No HPI ?abt/steroid failure HPI Details 78-year-old male here today complaining still of nasal congestion, frontal headaches and pain over left maxillary area present now for the last several days. He was seen at least 2 days ago at the walk-in clinic prescribed Z-Tejinder for acute sinusitis which she states has not really been helping. Denies any accompanying fever, no cough, no shortness of breath, no lightheadedness reported. [facility] Medical History Rosacea Cervical dystonia Essential and other specified forms of tremor Coarse tremors History of eye prosthesis RBBB (right bundle branch block) Mild intermittent asthma Tremor of both hands COVID-19 vaccine series completed PONV (postoperative nausea and vomiting) Post-nasal drip Alopecia Basal cell carcinoma Retinal vein occlusion of right eye Psoriasis Spinal stenosis Nephrolithiasis Inguinal hernia Essential hypertension Glaucoma Renal oncocytoma BPH (benign prostatic hyperplasia) Cervicalgia Surgical History S/P left rotator cuff repair Hx of repair of right rotator cuff History of carpal tunnel surgery of right wrist H/O: vasectomy History of cataract surgery H/O circumcision H/O enucleation of right eyeball H/O ventral hernia repair Hx of cholecystectomy H/O left inguinal hernia repair H/O lithotripsy H/O partial nephrectomy S/P cervical discectomy History of orchiectomy Family History Father CVD (cardiovascular disease) HTN (hypertension) Social History Housing: House Are you a primary career professional to a significant other at home: No Do you presently have visiting nurse or other home services: No Alcohol intake: never Patient Tobacco Use Status: Former Tobacco user Tobacco use type: Cigarette Years Smoked: 20 yrs e-Cigarette/Vaping Use: Never Used Second Hand Smoke Exposure: No service: No Current occupational status: retired Current occupation: lt handed Cognitive needs: No Hearing needs: No Vision needs: Yes Questionnaire Thrive Questionnaire Date Thrive assessed: 08/14/23 LLOYD-7 AMB Questionnaire LLOYD-7 Date LLOYD - 7 assessed: 08/14/23 Source: Developed by Drs. Brandon De La Torre, Masha Conti, Bridger Corral and colleagues, with an educational ling from [employer]. Review of Systems Const All systems reviewed & are unremarkable except as noted in HPI and below Physical exam (Primary Care) Vital Signs: Last Vital Signs Pulse 71 10/22/23 13:28 BP 122/66 10/22/23 13:28 Pulse Ox 98 10/22/23 13:28 BMI result Body Mass Index 22.2 Tobacco/Smoking Status: Tobacco use Status Tobacco use date assessed 10/22/23 10/22/23 13:32 Patient Tobacco Use Status Former Tobacco user 10/22/23 13:32 Tobacco use type Cigarette 10/22/23 13:32 e-Cigarette/Vaping Use Never Used 10/22/23 13:32 Thrive Assessment: Date of Thrive Assessment Date Thrive assessed 08/14/23 10/22/23 13:32 Const Other: Alert oriented x3, ambulatory normal gait HENMT Other: Moderate dry cerumen noted on left external auditory canal, tympanic membrane noted bilateral, slight tenderness on palpating over left maxillary area General nose exam: Normal external nose present and No nasal discharge present Mouth: Normal oral and palatal mucosa present, oropharynx normal and moist mucous membranes Neck Other: Supple with no lymphadenopathy palpated Resp Auscultation: clear to auscultation bilaterally Cardio Other: S1-S2 present regular rate and rhythm Assessment and Plan Assessment & Plan (1) Acute sinusitis: Code(s): J01.90 - Acute sinusitis, unspecified Qualifiers: Recurrence: non-recurrent Sinusitis location: maxillary Qualified Code(s): J01.00 - Acute maxillary sinusitis, unspecified Plan: Azithromycin Dosepak discontinued, prescription sent for amoxicillin-clavulanic acid 875 -125 mg per tablet to be taken 1 tablet every 12 hours for 10 days. (2) Allergic rhinitis: Code(s): J30.9 - Allergic rhinitis, unspecified Qualifiers: Allergic rhinitis seasonality: unspecified Allergic rhinitis trigger: unspecified Qualified Code(s): J30.9 - Allergic rhinitis, unspecified Plan: Prescription also sent for as a lasting nasal spray, 1-2 sprays per nostril twice a day. Discontinue Flonase, may continue taking levo cetirizine 5 mg per tablet at bedtime as needed for nasal congestion runny nose. Medications: New amoxicillin-pot clavulanate 875-125 mg 1 tab PO Q12H 20 tabs 0RF J01.90 - Acute sinusitis, unspecified azelastine administer into each nostril 2 sprays intranasal BID 30 mL 0RF Discontinued azithromycin Discontinued Reason: Doctor's Order For 250 mg dose pack: take 500 mg today (day 1), then 250 mg for 4 days (days 2-5) PO 6 tabs 0RF Coding Level of Care Code Est Pt Level 4 (74531) Diagnoses Acute non-recurrent maxillary sinusitis J01.00 Recurrence: non-recurrent Sinusitis location: maxillary Allergic rhinitis, unspecified seasonality, unspecified trigger J30.9 Allergic rhinitis seasonality: unspecified Allergic rhinitis trigger: unspecified
== END 2023-10-22 14:12 | disposition home or self-care (01) ==
PROVIDERS: PCP Internal Medicine; Visit Provider Internal Medicine
DX: J01.00 Acute maxillary sinusitis, unspecified (principal); J30.9 Allergic rhinitis, unspecified
CPT/HCPCS: 99214

== ENCOUNTER 2023-10-29 11:31 | Outpatient (AMB) | payer MEDICARE, SELFPAY ==
--- NOTE | 2023-10-29 12:06 | MHC.OFFVIS ---
Intake Visit Reasons: Preop LT CTR and cubital 11/06/23 AR Intake Note: Juve is a 78 year old left hand dominant male who presents today with his pre operatively for his Left Carpal Tunnel Release and Cubital Release 11/06/23. Hx of high blood pressure but says it is well controlled. Accompanied by: Spouse Allergies Fish Containing Products Allergy (Severe, Verified 10/29/23 12:09) ANAPHYLAXIS hydromorphone [From DILAUDID] Allergy (Severe, Verified 10/29/23 12:09) CHILLS,DIAPHORESIS povidone-iodine [From BETADINE] Allergy (Severe, Verified 10/29/23 12:09) ANAPHYLAXIS timolol [TIMOLOL] Allergy (Severe, Verified 10/29/23 12:09) ANAPHYLAXIS ENVIROMENTAL Allergy (Intermediate, Uncoded 10/24/23 02:38) HAYFEVER Lamisil Allergy (Unknown, Uncoded 10/24/23 02:38) Nausea/Dizzy/Airway trouble HPI HPI Preop LT CTR and cubital 11/06/23 AR: Details: Juve is a 78 year old right hand dominant man who presents to discuss his left carpal tunnel syndrome and cubital tunnel syndrome on the left. He complains of numbness in the median nerve distribution of his left hand. Symptoms intermittent, but daily, worse at night. he says his symptoms have improved vastly over the last 2-3 weeks, and he is now able to sleep without much difficulty. The patient also reports that he is never experienced any numbness in his left small finger He denies any prior treatment for his left hand. He has a Hx of carpal tunnel surgery of right wrist, DOS: 04/[address] Curtis. [facility] Medical History Rosacea Cervical dystonia Essential and other specified forms of tremor Coarse tremors History of eye prosthesis RBBB (right bundle branch block) Mild intermittent asthma Tremor of both hands COVID-19 vaccine series completed PONV (postoperative nausea and vomiting) Post-nasal drip Alopecia Basal cell carcinoma Retinal vein occlusion of right eye Psoriasis Spinal stenosis Nephrolithiasis Inguinal hernia Essential hypertension Glaucoma Renal oncocytoma BPH (benign prostatic hyperplasia) Cervicalgia Surgical History S/P left rotator cuff repair Hx of repair of right rotator cuff History of carpal tunnel surgery of right wrist H/O: vasectomy History of cataract surgery H/O circumcision H/O enucleation of right eyeball H/O ventral hernia repair Hx of cholecystectomy H/O left inguinal hernia repair H/O lithotripsy H/O partial nephrectomy S/P cervical discectomy History of orchiectomy Family History Father CVD (cardiovascular disease) HTN (hypertension) Social History Housing: House Are you a primary resident care coordinator to a significant other at home: No Do you presently have visiting nurse or other home services: No Alcohol intake: never Patient Tobacco Use Status: Former Tobacco user Tobacco use type: Cigarette Years Smoked: 20 yrs e-Cigarette/Vaping Use: Never Used Second Hand Smoke Exposure: No service: No Current occupational status: retired Current occupation: left handed Cognitive needs: No Hearing needs: No Vision needs: Yes Review of Systems Const All systems reviewed & are unremarkable except as noted in HPI and below Physical Exam Const Other: Patient is alert, oriented, cooperative, and in no acute distress General: cooperative, healthy appearing and no acute distress Orientation/consciousness: patient oriented x3 HEENT Head: Yes normocephalic and Yes atraumatic Eyes EOM: EOMs intact bilaterally Resp Effort & Inspection: normal respiratory effort and able to speak in complete sentences Cardio Jugular venous distension: no JVD Skin General skin exam: turgor normal Rashes: no rashes Neuro General: patient oriented x3 Cognition (Neuro): normal cognition Extrem Other: Evaluation of Left Upper Extremity: The patient is alert, oriented, and in no acute distress Neuro: Median, Ulnar, Radial nerves motor and sensory intact and sensation is normal to the tips of all digits, including the small finger. + Evidence of intrinsic wasting on the left when compared to the right Positive Froment's sign on the left, negative on the right Vascular: Cap refill brisk ROM: He can make a fist and extend all his digits Skin: No lacerations or abrasions. General: No Ecchymosis. No Erythema or evidence of infection. Nerve Conduction study: IMPRESSION: 1. This is an abnormal study. 2. 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 3. There is electrodiagnostic evidence for left moderate-severe median neuropathy at the wrist, consistent with carpal tunnel syndrome. 4. There is no electrodiagnostic evidence for brachial plexopathy or cervical radiculopathy. Marlyn Saldana MD, EDYTA 08/15/23 Psych Appearance: grossly normal Mental Status: mental status grossly normal Affect: normal affect Attitude: cooperative Assessment & Plan Assessment & Plan (1) Left carpal tunnel syndrome: Code(s): G56.02 - Carpal tunnel syndrome, left upper limb Category: Medical (2) Cubital tunnel syndrome on left: Code(s): G56.22 - Lesion of ulnar nerve, left upper limb Category: Medical (3) Bilateral carotid artery stenosis: Code(s): I65.23 - Occlusion and stenosis of bilateral carotid arteries Category: Medical Plan Assessment & Plan: 1. Left carpal tunnel syndrome, moderate-severe Symptoms intermittent, but daily, worse at night 2. Left cubital tunnel syndrome Patient reports normal sensation, but he has intrinsic wasting in a positive Froment sign I educated him about this condition I discussed operative and non-operative treatment options The patient would like to proceed with left carpal and cubital tunnel releases The risks and benefits of operative treatment were discussed with the patient and the patient wishes to proceed with surgery. These risks include, but are not limited to risk of damage to blood vessels, nerves, tendons, infection, recurrence, incomplete relief of preoperative symptoms, persistent pain, possible need for further surgery and the risks associated with regional blocks and anesthesia. The plan is to take the patient to the operating room sometime on 11/06/23 for the following procedures: 1. Left carpal tunnel release, under general anesthesia 2. Left cubital tunnel release All of the preoperative paperwork including the consent was reviewed today. All the patient's questions were answered. The patient understands that they will be contacted by our medical office scheduler soon to schedule this procedure He denies Diabetes, blood thinners, asthma, lung, kidney issues He has a Hx of bilateral carotid artery stenosis Scribe Plan - Not visible on output: Scribed for Akiko De Souza MD by Mario Kenny, medical lab technician, on [ ] at [ ], EST. Coding Level of Care Code Est Pt Level 4 (32394) Diagnoses Left carpal tunnel syndrome G56.02 Cubital tunnel syndrome on left G56.22 Bilateral carotid artery stenosis I65.23
== END 2023-10-29 12:43 | disposition home or self-care (01) ==
PROVIDERS: PCP Internal Medicine; Visit Provider Orthopaedic Surgery
DX: G56.02 Carpal tunnel syndrome, left upper limb (principal); G56.22 Lesion of ulnar nerve, left upper limb; I65.23 Occlusion and stenosis of bilateral carotid arteries
CPT/HCPCS: 99024

== ENCOUNTER → 2023-10-29 11:31 | Outpatient (BNVA) | payer MEDICARE, SELFPAY | PROVIDERS: PCP Internal Medicine; Visit Provider Orthopaedic Surgery | DX: G56.02 Carpal tunnel syndrome, left upper limb (principal); G56.22 Lesion of ulnar nerve, left upper limb; I65.23 Occlusion and stenosis of bilateral carotid arteries | CPT/HCPCS: 99212 ==

== ENCOUNTER 2023-12-10 10:38 | Outpatient (AMB) | payer MEDICARE, SELFPAY ==
--- NOTE | 2023-12-10 10:51 | MHC.OFFVIS ---
Vital Signs 12/10/23 10:52 Handedness Left Intake Visit Reasons: Preop LT CTR and cubital 12/15/23 AR Intake Note: Juve is a 78 year old left hand dominant male who presents today pre operatively for his left cubital and carpal tunnel release scheduled for 12/15/23 w/ AR. Allergies Fish Containing Products Allergy (Severe, Verified 12/10/23 10:52) ANAPHYLAXIS hydromorphone [From DILAUDID] Allergy (Severe, Verified 12/10/23 10:52) CHILLS,DIAPHORESIS povidone-iodine [From BETADINE] Allergy (Severe, Verified 12/10/23 10:52) ANAPHYLAXIS timolol [TIMOLOL] Allergy (Severe, Verified 12/10/23 10:52) ANAPHYLAXIS ENVIROMENTAL Allergy (Intermediate, Uncoded 12/10/23 10:52) HAYFEVER Lamisil Allergy (Unknown, Uncoded 12/10/23 10:52) Nausea/Dizzy/Airway trouble HPI HPI Preop LT CTR and cubital 12/15/23 AR: Details: Patient is a 78-year-old male who presents for preoperative evaluation for left carpal and left cubital tunnel releases, scheduled for 12/15/[address] De Souza. Today, the patient reports he is feeling well, but then he continues to experience the same symptoms from previous visits from his left carpal and cubital tunnel syndromes. No other acute complaints or concerns at this time [facility] Medical History Rosacea Cervical dystonia Essential and other specified forms of tremor Coarse tremors History of eye prosthesis RBBB (right bundle branch block) Mild intermittent asthma Tremor of both hands COVID-19 vaccine series completed PONV (postoperative nausea and vomiting) Post-nasal drip Alopecia Basal cell carcinoma Retinal vein occlusion of right eye Psoriasis Spinal stenosis Nephrolithiasis Inguinal hernia Essential hypertension Glaucoma Renal oncocytoma BPH (benign prostatic hyperplasia) Cervicalgia Surgical History S/P left rotator cuff repair Hx of repair of right rotator cuff History of carpal tunnel surgery of right wrist H/O: vasectomy History of cataract surgery H/O circumcision H/O enucleation of right eyeball H/O ventral hernia repair Hx of cholecystectomy H/O left inguinal hernia repair H/O lithotripsy H/O partial nephrectomy S/P cervical discectomy History of orchiectomy Family History Father CVD (cardiovascular disease) HTN (hypertension) Social History Housing: House Are you a primary progressive care unit registered nurse to a significant other at home: No Do you presently have visiting nurse or other home services: No Alcohol intake: never Patient Tobacco Use Status: Former Tobacco user Tobacco use type: Cigarette Years Smoked: 20 yrs e-Cigarette/Vaping Use: Never Used Second Hand Smoke Exposure: No service: No Current occupational status: retired Current occupation: left handed Cognitive needs: No Hearing needs: No Vision needs: Yes Physical Exam Extrem Other: Neuro: Decreased sensation in the median nerve distribution in the left. Normal sensation to all other digits in the left hand today. Normal sensation in the tips of all digits of the right hand today. There is evidence of intrinsic wasting in the left No thenar wasting Good APB muscle firing and good finger cross. Vascular: Capillary refill brisk. ROM: Patient can make a fist and extend all their digits. Skin: No lacerations or abrasions noted. General: No ecchymosis. No erythema or evidence of infection. Assessment & Plan Assessment & Plan (1) Cubital tunnel syndrome on left: Code(s): G56.22 - Lesion of ulnar nerve, left upper limb Category: Medical (2) Left carpal tunnel syndrome: Code(s): G56.02 - Carpal tunnel syndrome, left upper limb Category: Medical Plan 1. Left carpal tunnel 2. Left cubital tunnel Symptoms intermittent, but daily, worse at night Evidence of intrinsic wasting on the left, but no numbness or tingling in the ulnar nerve distribution Plan is to proceed with previously scheduled surgical procedure for left carpal tunnel release and left cubital tunnel release on 12/15/[address] De Souza Patient is amenable to this plan Patient is educated about this procedure in the recovery course All consents and paperwork signed and filled out today The patient did request that we avoid tape on his dressings if at all possible, due to sensitive skin, as well given Vicodin for his prescription strength pain medication after surgery, as he felt that the last time he took Percocet, it upset his stomach Patient will follow-up after procedure for 2 week postoperative visit Coding Level of Care Code Est Pt Level 3 (95070) Diagnoses Cubital tunnel syndrome on left G56.22 Left carpal tunnel syndrome G56.02
== END 2023-12-10 11:19 | disposition home or self-care (01) ==
PROVIDERS: PCP Internal Medicine
DX: G56.22 Lesion of ulnar nerve, left upper limb (principal); G56.02 Carpal tunnel syndrome, left upper limb
CPT/HCPCS: 99024

== ENCOUNTER → 2023-12-10 10:38 | Outpatient (BNVA) | payer MEDICARE, SELFPAY | PROVIDERS: PCP Internal Medicine | DX: G56.22 Lesion of ulnar nerve, left upper limb (principal); G56.02 Carpal tunnel syndrome, left upper limb | CPT/HCPCS: 99212 ==

== ENCOUNTER 2023-12-15 05:50 | Day surgery (SDC) | payer MEDICARE, SELFPAY ==
[2023-11-04 08:18] VITALS: BMI 22.2
[2023-12-15] VITALS (7 sets, daily range): BP systolic 130–157; BP diastolic 65–84; PULSE 76–81; RESP 16–18; TEMP 36.1–36.9; O2SAT 95–99; BMI 22.1
[2023-12-15] MEDS: Lactated Ringers 1,000 ML 50 ML IVCONT (06:46)
--- NOTE | 2023-12-15 07:33 | HO.ANESPROP2 ---
HPI - Anesthesia Eval Consult details Narrative: left cubital tunnel PMFSH Active Problems Active Problems: All Active Problems Cubital tunnel syndrome on left (Acute) Left carpal tunnel syndrome (Acute) Rosacea (Acute) Cervical dystonia (Acute) Essential and other specified forms of tremor (Acute) Bilateral carotid artery stenosis (Acute) Raynauds disease (Acute) Allergic rhinitis (Acute) Rotator cuff tear arthropathy of left shoulder (Acute) Mild intermittent asthma (Acute) Psoriasis (Acute) Spinal stenosis (Acute) Nephrolithiasis (Acute) Essential hypertension (Acute) Glaucoma (Acute) Renal oncocytoma (Acute) BPH (benign prostatic hyperplasia) (Acute) Cervicalgia (Acute) Past Medical History Medical History Rosacea Cervical dystonia Essential and other specified forms of tremor Coarse tremors History of eye prosthesis RBBB (right bundle branch block) Mild intermittent asthma Tremor of both hands COVID-19 vaccine series completed PONV (postoperative nausea and vomiting) Post-nasal drip Alopecia Basal cell carcinoma Retinal vein occlusion of right eye Psoriasis Spinal stenosis Nephrolithiasis Inguinal hernia Essential hypertension Glaucoma Renal oncocytoma BPH (benign prostatic hyperplasia) Cervicalgia Family History Family History Father CVD (cardiovascular disease) HTN (hypertension) Family history of problems with anesthesia: No Surgical History Surgical History S/P left rotator cuff repair Hx of repair of right rotator cuff History of carpal tunnel surgery of right wrist H/O: vasectomy History of cataract surgery H/O circumcision H/O enucleation of right eyeball H/O ventral hernia repair Hx of cholecystectomy H/O left inguinal hernia repair H/O lithotripsy H/O partial nephrectomy S/P cervical discectomy History of orchiectomy History of Problems with Anesthesia: Yes Social History Social History Housing: House Are you a primary women's health care nurse practitioner to a significant other at home: No Do you presently have visiting nurse or other home services: No Alcohol intake: never Patient Tobacco Use Status: Former Tobacco user Tobacco use type: Cigarette Years Smoked: 20 yrs e-Cigarette/Vaping Use: Never Used Second Hand Smoke Exposure: No Advance Directives: No Advance Directives Information Provided: Yes service: No Current occupational status: retired Current occupation: left handed Cognitive needs: No Hearing needs: No Vision needs: Yes Meds Allergies Allergy/AdvReac Type Severity Reaction Status Date / Time Fish Containing Products Allergy Severe ANAPHYLAXIS Verified 12/10/23 10:52 hydromorphone [From DILAUDID] Allergy Severe CHILLS,DIAP Verified 12/10/23 10:52 HORESIS povidone-iodine Allergy Severe ANAPHYLAXIS Verified 12/10/23 10:52 [From BETADINE] timolol [TIMOLOL] Allergy Severe ANAPHYLAXIS Verified 12/10/23 10:52 ENVIROMENTAL Allergy Intermediate HAYFEVER Uncoded 12/10/23 10:52 Lamisil Allergy Unknown Nausea/Dizzy/Airway Uncoded 12/10/23 10:52 trouble Active Medications: Current Medications Lactated Ringer's (Lr) 1,000 mls @ 50 mls/hr IVCONT .Q20H MARJORIE Last Admin: 12/15/23 06:46 Dose: 50 mls/hr Home Medications ?Medication ?Instructions ?Recorded ?Confirmed ?Last Taken ?Type betamethasone dipropionate 0.05 % topical 02/11/20 10/14/22 Unknown History topical ointment finasteride 5 mg tablet 5 mg PO DAILY 02/11/20 10/14/22 12/15/23 History travoprost 0.004 % eye drops 1 drp ophthalmic (eye) 02/11/20 10/14/22 01/31/21 History dupilumab 200 mg/1.14 mL 200 mg subcut .q month 07/17/20 10/14/22 Unknown History subcutaneous syringe levocetirizine 5 mg tablet (Xyzal) 5 mg PO QPM 01/24/21 10/14/22 Unknown History azelaic acid 15 % topical gel topical 09/24/22 10/14/22 Unknown History valacyclovir 500 mg tablet mg PO PRN 07/17/23 Unknown History Exam Height,Weight and Vital Signs: Height 5 ft 8 in Weight 65.907 kg Last Vital Signs Temp 98.5 F 12/15/23 06:11 Pulse 76 12/15/23 06:11 Resp 18 12/15/23 06:11 BP 144/84 H 12/15/23 06:11 Pulse Ox 97 12/15/23 06:11 O2 Del Method Room Air 12/15/23 06:11 Airway Mallampati Class: III TM Dist: >3cm Neck ROM: Full Denture: Upper and Lower Heart: rrr Lungs: cta Assessment and Plan Assessment Anesthesia Assessment: Anesthesia Plan Discussed Final Anesthetic Review Family History of Problems with Anesthesia: No History of Problems with Anesthesia: Yes NPO: Yes ASA Class: III (face red due to rosacea, right eye prosthesis) Final Preanesthetic Review: No Changes in Pt Med Stat, Meds/Allgs Chart Reviewed, Consent Obtained/Reviewed and Anes Risks/Benef Reviewed Patient Risk: Intermediate Procedure Risk: Intermediate Anesthetic Plan Anesthetic Plan: GA Disposition: Standard PACU
--- NOTE | 2023-12-15 07:36 | MHC.SHP ---
Pre-Procedural Eval Section A - 24 Hr Update-Section A only Date of Service: 12/15/23 The patient is an INPATIENT: No Changes since office visit: No Cold of Flu in the past 2 weeks, No New Medical Problems, No Changes in Medication and No Patient answered all questions The patient has been examined within 24 hours of the surgical procedure. The History & Physical has been completed within 30 days and I have reviewed it.: Yes Section B - Complete if H&P > 30 days Chief Complaint: Lesion of ulnar nerve, left upper limb,carpal tunn Allergies: Allergies Allergy/AdvReac Type Severity Reaction Status Date / Time Fish Containing Products Allergy Severe ANAPHYLAXIS Verified 12/10/23 10:52 hydromorphone [From DILAUDID] Allergy Severe CHILLS,DIAP Verified 12/10/23 10:52 HORESIS povidone-iodine Allergy Severe ANAPHYLAXIS Verified 12/10/23 10:52 [From BETADINE] timolol [TIMOLOL] Allergy Severe ANAPHYLAXIS Verified 12/10/23 10:52 ENVIROMENTAL Allergy Intermediate HAYFEVER Uncoded 12/10/23 10:52 Lamisil Allergy Unknown Nausea/Dizzy/Airway Uncoded 12/10/23 10:52 trouble Plan Diagnosis/Plan: Unchanged I have reviewed the history and physic The risks and benefits of operative treatment were discussed with the patient and the patient wishes to proceed with surgery. These risks include, but are not limited to risk of damage to blood vessels, nerves, tendons, infection, recurrence, incomplete relief of preoperative symptoms, persistent pain, possible need for further surgery and the risks associated with regional blocks and anesthesia. The plan is to take the patient to the operating room today for the following procedures: 1. Left carpal tunnel syndrome 2. Left cubital tunnel release All of the preoperative paperwork including the consent was filled out today. All the patient's questions were answered. The patient understands that they will be contacted by our mathematical engineer soon to schedule this procedure Time Spent With Patient Time: Total time managing care of this patient today ____ minutes.
--- NOTE | 2023-12-15 07:39 | W.PM.OPN ---
Operative Note Operative Note Date of Service: 12/15/23 Narrative: Operative Note Narrative: Preop diagnosis: 1. Left Cubital tunnel syndrome 2. Left carpal tunnel syndrome Postop diagnosis: Same Procedure: 1. Left Cubital Tunnel Release 2. Left carpal tunnel release Surgeon: Akiko De Souza MD Director Of Instructional Technology: None Anesthesia: General Anesthesia Findings: Thickening and fibrosis about the ulnar nerve at the cubital tunnel Implants: none Tourniquet time: 22 minutes EBL: 5.0 ml Specimen: none Drains: None Complications: None Disposition: Brought to the recovery room in stable condition Plan: Follow-up in 10-14 days for wound check, and suture removal Indications: The patient is 78 years old with left cubital tunnel syndrome and left carpal tunnel syndrome with APB and intrinsic muscle wasting . The risks and benefits of operative treatment, including but not limited to risk of damage to blood vessels, nerves, tendons, infection, recurrence, persistent pain or numbness, incomplete resolution of preoperative symptoms, or need for further surgery were discussed with the patient and they wished to proceed with surgery. Procedure: Once consent was obtained patient was brought back to the operating suite and placed in the operating table in a supine position. Perioperative antibiotics and anesthesia was administered by the anesthesia team. The limb was prepped and draped in a standard surgical fashion, and a sterile tourniquet applied to the proximal aspect of the left upper extremity. The limb was elevated exsanguinated with Esmarch bandage and the tourniquet inflated to 250 mm of mercury for a total tourniquet time of 22 minutes. Once assured that we had a good block, a 2.0 cm longitudinal incision was made centered over the left carpal tunnel. The incision was made through the skin to the subcutaneous tissues using a #15 blade. Dissection was made down to the level of the transverse carpal ligament with care being taken to protect the palmar cutaneous nerve. Once the transverse carpal ligament was clearly visualized, a longitudinal incision was made in the transverse carpal ligament 1st using a #15 blade, then using tenotomy scissors under direct visualization. Care was taken to look for and protect the motor branch of the median nerve when seen in this area. Once satisfied with our carpal tunnel release the wound was irrigated with normal saline. A 6 cm gently curved but longitudinally oriented incision was made centered over the cubital tunnel of the left upper extremity. Incision was made through the skin to the subcutaneous tissues using a # 15 Blade. I then dissected down to the level of the medial epicondyle and the cubital tunnel using tenotomy scissors. Care was taken to protect the medial antebrachial cutaneous nerve. The ulnar nerve was identified just posterior to the medial intermuscular septum. The ulnar nerve was released in a proximal to distal direction using tenotomy in iris scissors while directly visualizing and protecting the ulnar nerve. Thickening and fibrosis was appreciated about the ulnar nerve as it passed through the cubital tunnel. The ulnar nerve was assessed as I passed the elbow through full flexion and extension and was found to remain stable within its groove. At this point the tourniquet was deflated and hemostasis obtained with a brief period of local pressure and bipolar electrocautery. The wound was copiously irrigated with normal saline. The subcutaneous layer was closed with 4-0 Vicryl suture, and the skin edges were reapproximated with 5-0 nylon suture. The wounds were infiltrated with some 1% lidocaine with epinephrine for postop pain control and sterile dressings . The patient appears to have tolerated the procedure well and with no complications. All digits were well vascularized at the conclusion of the case.
== END 2023-12-15 10:16 | disposition home or self-care (01) ==
PROVIDERS: PCP Internal Medicine; Visit Provider Orthopaedic Surgery
PROC: (CPT 64718; principal; 2023-12-15 07:30)
PROC: (CPT 64721; 2023-12-15 07:30)
DX: G56.02 Carpal tunnel syndrome, left upper limb (principal); G56.22 Lesion of ulnar nerve, left upper limb; I10 Essential (primary) hypertension; J45.20 Mild intermittent asthma, uncomplicated; C44.91 Basal cell carcinoma of skin, unspecified; L71.9 Rosacea, unspecified; G25.0 Essential tremor; Z79.899 Other long term (current) drug therapy; Z91.041 Radiographic dye allergy status; Z88.5 Allergy status to narcotic agent; Z88.8 Allergy status to other drugs, medicaments and biological substances; Z98.890 Other specified postprocedural states; Z87.891 Personal history of nicotine dependence
CPT/HCPCS: 64721; 64718; J0131; J0690; J2405; J2704; J3010

== ENCOUNTER → 2023-12-15 05:50 | Outpatient (BNV) | payer MEDICARE, SELFPAY | PROVIDERS: PCP Internal Medicine; Visit Provider Orthopaedic Surgery | DX: G56.22 Lesion of ulnar nerve, left upper limb (principal); G56.02 Carpal tunnel syndrome, left upper limb | CPT/HCPCS: 64718; 64721 ==

== ENCOUNTER 2023-12-19 13:39 | Outpatient (AMB) | payer MEDICARE, SELFPAY ==
--- NOTE | 2023-12-19 13:50 | MHC.OFFVIS ---
Intake Visit Reasons: PO LT CTR and cubital 12/15/23 AR Intake Note: Juve is a 78 year old male who presents today for a post operative visit S/P left carpal tunnel and cubital release 12/15/23 AR. Patient is in today due to swelling of his left hand that started the day after surgery. It was slightly swollen, improved but then noticed yesterday it had swelled up again. He expresses tightness in his fingers when he attempts to close his fist. He states he unwrapped and then rewrapped his bill wrap last night to see if this would reduce swelling however it did not. Allergies Fish Containing Products Allergy (Severe, Verified 12/19/23 13:55) ANAPHYLAXIS hydromorphone [From DILAUDID] Allergy (Severe, Verified 12/19/23 13:55) CHILLS,DIAPHORESIS povidone-iodine [From BETADINE] Allergy (Severe, Verified 12/19/23 13:55) ANAPHYLAXIS timolol [TIMOLOL] Allergy (Severe, Verified 12/19/23 13:55) ANAPHYLAXIS ENVIROMENTAL Allergy (Intermediate, Uncoded 12/19/23 13:55) HAYFEVER Lamisil Allergy (Unknown, Uncoded 12/19/23 13:55) Nausea/Dizzy/Airway trouble HPI HPI PO LT CTR and cubital 12/15/23 AR: Details: Patient is a 78-year-old male who presents for incision site check status post left carpal tunnel release and cubital tunnel release, DOS 12/15/2023. Today, the patient reports that, over the last couple of days, he has noticed significant swelling in the MCP joints of the left hand, as well as feeling like something is ?bunched up? in his left elbow under the dressing for the cubital tunnel incision site. The patient is aware that he will be able to remove these dressings tomorrow, but states that he wanted to get them checked in case there were any concerns for infection or delayed healing of the incision sites. Patient denies any increasing pain, erythema, or warmth of the digits of the left hand. No other acute complaints or concerns at this time. [facility] Medical History Rosacea Cervical dystonia Essential and other specified forms of tremor Coarse tremors History of eye prosthesis RBBB (right bundle branch block) Mild intermittent asthma Tremor of both hands COVID-19 vaccine series completed PONV (postoperative nausea and vomiting) Post-nasal drip Alopecia Basal cell carcinoma Retinal vein occlusion of right eye Psoriasis Spinal stenosis Nephrolithiasis Inguinal hernia Essential hypertension Glaucoma Renal oncocytoma BPH (benign prostatic hyperplasia) Cervicalgia Surgical History S/P left rotator cuff repair Hx of repair of right rotator cuff History of carpal tunnel surgery of right wrist H/O: vasectomy History of cataract surgery H/O circumcision H/O enucleation of right eyeball H/O ventral hernia repair Hx of cholecystectomy H/O left inguinal hernia repair H/O lithotripsy H/O partial nephrectomy S/P cervical discectomy History of orchiectomy Family History Father CVD (cardiovascular disease) HTN (hypertension) Social History Housing: House Are you a primary patient care nursing assistant to a significant other at home: No Do you presently have visiting nurse or other home services: No Alcohol intake: never Patient Tobacco Use Status: Former Tobacco user Tobacco use type: Cigarette Years Smoked: 20 yrs e-Cigarette/Vaping Use: Never Used Second Hand Smoke Exposure: No service: No Current occupational status: retired Current occupation: left handed Cognitive needs: No Hearing needs: No Vision needs: Yes Physical Exam Extrem Other: Patient is alert, oriented, and in no acute distress. Neuro: Patient reports normal sensation of the tips of all digits of the left hand at this time. Vascular: Cap refill brisk Pain: The patient does report discomfort with making a closed fist Patient reports minimal tenderness to palpation to the areas about both incision sites ROM: With encouragement, patient is able to make a closed fist and extend fingers fully Patient is able to extend the elbow fully and flex to approximately 130-140 degrees without difficulty Skin: Well-approximated incision sites on both the ulnar aspect of the left elbow and the volar aspect of the left wrist General: Some very mild erythema about the incision site noted. No ecchymosis or evidence of infection. There is noted to be significant edema of the MCP joints of the left hand, just above where the Bill bandage was wrapped. No erythema in this area. No tenderness to palpation of this area. Psych: Appears grossly normal Affect normal Attitude cooperative Assessment & Plan Assessment & Plan (1) Cubital tunnel syndrome on left: Code(s): G56.22 - Lesion of ulnar nerve, left upper limb Category: Medical (2) Left carpal tunnel syndrome: Code(s): G56.02 - Carpal tunnel syndrome, left upper limb Category: Medical Plan 1. Left carpal tunnel syndrome status post carpal tunnel release 2. Left cubital tunnel syndrome status post cubital tunnel release Date of surgery 12/15/2023 Patient appears to be recovering well postoperatively The patient is educated about the typical recovery course Patient is educated that, based on his symptoms, it is likely that the Bill bandage on the dressing was too tight, and this is what caused the edema of his left MCP joints Index of suspicion for any potential infection of the left elbow or hand is very low at this point. Dressings are removed and replaced, looser than previous dressings Patient is informed he can remove the dressing starting tomorrow Patient is amenable to this plan Patient should keep previously scheduled appointment with Dr. De Souza for 2 week follow-up, sooner with any acute concerns Coding Level of Care Code Global (83799) Diagnoses Cubital tunnel syndrome on left G56.22 Left carpal tunnel syndrome G56.02
== END 2023-12-19 14:25 | disposition home or self-care (01) ==
PROVIDERS: PCP Internal Medicine
DX: G56.22 Lesion of ulnar nerve, left upper limb (principal); G56.02 Carpal tunnel syndrome, left upper limb
CPT/HCPCS: 99024

== ENCOUNTER → 2023-12-19 13:39 | Outpatient (BNVA) | payer MEDICARE, SELFPAY | PROVIDERS: PCP Internal Medicine | DX: G56.02 Carpal tunnel syndrome, left upper limb (principal); G56.22 Lesion of ulnar nerve, left upper limb | CPT/HCPCS: 99212 ==

== ENCOUNTER 2023-12-30 09:20 | Outpatient (AMB) | payer MEDICARE, SELFPAY ==
[2023-12-30 09:27] VITALS: BMI 22.1
--- NOTE | 2023-12-30 09:27 | MHC.OFFVIS ---
Vital Signs 12/30/23 09:27 Height 5 ft 8 in Weight 145 lb 8 oz BMI 22.1 Intake Visit Reasons: PO LT CTR and cubital 12/15/23 AR Intake Note: Juve is a 78 year old male who presents today for a post operative visit S/P left carpal tunnel and cubital release done 12/15/[address] De Souza. Denies numbness, tingling, or locking on finger. He is not taking anything for pain. Sutures removed in office today and steri strips applied. Allergies Fish Containing Products Allergy (Severe, Verified 12/30/23 09:28) ANAPHYLAXIS hydromorphone [From DILAUDID] Allergy (Severe, Verified 12/30/23 09:28) CHILLS,DIAPHORESIS povidone-iodine [From BETADINE] Allergy (Severe, Verified 12/30/23 09:28) ANAPHYLAXIS timolol [TIMOLOL] Allergy (Severe, Verified 12/30/23 09:28) ANAPHYLAXIS ENVIROMENTAL Allergy (Intermediate, Uncoded 12/30/23 09:28) HAYFEVER Lamisil Allergy (Unknown, Uncoded 12/30/23 09:28) Nausea/Dizzy/Airway trouble HPI HPI PO LT CTR and cubital 12/15/23 AR: Details: Juve is a 78 year old left hand dominant man who returns S/P left carpal & cubital tunnel release, DOS: 12/15/23. He says he is doing well and his sensation has improved and is now normal. He is happy with the results of his surgery. He says he is currently seeing a Neurologist at an outside clinic to assess his essential tremors and now to discuss his left hand muscle wasting. He denies any gait difficulties or increasing problems with stumbling etc... He has a Hx of carpal tunnel surgery of right wrist, DOS: 04/[address] Curtis. [facility] Medical History Rosacea Cervical dystonia Essential and other specified forms of tremor Coarse tremors History of eye prosthesis RBBB (right bundle branch block) Mild intermittent asthma Tremor of both hands COVID-19 vaccine series completed PONV (postoperative nausea and vomiting) Post-nasal drip Alopecia Basal cell carcinoma Retinal vein occlusion of right eye Psoriasis Spinal stenosis Nephrolithiasis Inguinal hernia Essential hypertension Glaucoma Renal oncocytoma BPH (benign prostatic hyperplasia) Cervicalgia Surgical History S/P left rotator cuff repair Hx of repair of right rotator cuff History of carpal tunnel surgery of right wrist H/O: vasectomy History of cataract surgery H/O circumcision H/O enucleation of right eyeball H/O ventral hernia repair Hx of cholecystectomy H/O left inguinal hernia repair H/O lithotripsy H/O partial nephrectomy S/P cervical discectomy History of orchiectomy Family History Father CVD (cardiovascular disease) HTN (hypertension) Social History Housing: House Are you a primary critical care specialist to a significant other at home: No Do you presently have visiting nurse or other home services: No Alcohol intake: never Patient Tobacco Use Status: Former Tobacco user Tobacco use type: Cigarette Years Smoked: 20 yrs e-Cigarette/Vaping Use: Never Used Second Hand Smoke Exposure: No service: No Current occupational status: retired Current occupation: left handed Cognitive needs: No Hearing needs: No Vision needs: Yes Review of Systems Const All systems reviewed & are unremarkable except as noted in HPI and below Physical Exam Vital Signs: BMI result Body Mass Index 22.1 Const General: no acute distress and alert Orientation/consciousness: patient oriented x3 Neuro General: patient oriented x3 Extrem Other: The patient was alert oriented and in no acute distress The incision is healing well with no erythema drainage or evidence of infection. Sutures removed and Steri-Strips applied He can make a fist and extend all his digits Sensation is intact to the tips of all digits Some intrinsic wasting & a + Froment's sign Cap refill is brisk Nerve Conduction study: IMPRESSION: 1. This is an abnormal study. 2. 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 3. There is electrodiagnostic evidence for left moderate-severe median neuropathy at the wrist, consistent with carpal tunnel syndrome. 4. There is no electrodiagnostic evidence for brachial plexopathy or cervical radiculopathy. Marlyn Saldana MD, EDYTA 08/15/23 Psych Appearance: grossly normal Affect: normal affect Attitude: cooperative Assessment & Plan Assessment & Plan (1) Left carpal tunnel syndrome: Code(s): G56.02 - Carpal tunnel syndrome, left upper limb Category: Medical (2) Cubital tunnel syndrome on left: Code(s): G56.22 - Lesion of ulnar nerve, left upper limb Category: Medical Plan Assessment & Plan: 1. Left carpal tunnel syndrome, S/P release DOS: 12/15/2023 Pre-operative symptoms intermittent, but daily, worse at night Now with normal sensation 2. Left cubital tunnel syndrome, status post release DOS: 12/15/2023 Pre-operatively patient reported normal sensation, but he has intrinsic wasting and a positive Froment sign Continues with normal sensation 3. Left upper extremity Ulnar nerve related muscle wasting The patient appears to be doing well post-operatively I educated him and his about the post-operative course He denies any issues with his gait or balance. He does not have similar problems in the right upper extremity. I recommend he speak with his Neurologist concerning his left hand ulnar nerve related muscle wasting and possible Etiology. He is already has an upcoming appointment with his Neurologist concerning his hand tremors and will bring this up as well.. I discussed activity modifications, he is to lift nothing heavier than a cellphone for the next two weeks He will perform gentle ROM exercises at home He should avoid any underwater activities for the next 5 days He should gently massage about the incision site to reduce the risk of hypersensitivity He can follow up prn Scribed for Akiko De Souza MD by aMrio Kenny medical claims representative, on 12/30/23 at 10:15 AM, EST. Coding Level of Care Code Global (37035) Diagnoses Left carpal tunnel syndrome G56.02 Cubital tunnel syndrome on left G56.22
== END 2023-12-30 10:38 | disposition home or self-care (01) ==
PROVIDERS: PCP Internal Medicine; Visit Provider Orthopaedic Surgery
DX: G56.02 Carpal tunnel syndrome, left upper limb (principal); G56.22 Lesion of ulnar nerve, left upper limb
CPT/HCPCS: 99024

== ENCOUNTER → 2023-12-30 09:20 | Outpatient (BNVA) | payer MEDICARE, SELFPAY | PROVIDERS: PCP Internal Medicine; Visit Provider Orthopaedic Surgery | DX: G56.02 Carpal tunnel syndrome, left upper limb (principal); G56.22 Lesion of ulnar nerve, left upper limb | CPT/HCPCS: 99212 ==

== ENCOUNTER 2024-01-21 06:04 | Outpatient (REF) | payer MEDICARE, SELFPAY ==
[2024-01-21 10:25] LABS: Alanine Aminotransferase 19 U/L (0-40); Anion Gap 12 (12-20); Aspartate Amino Transferase 21 U/L (5-37); Blood Urea Nitrogen 17 mg/dL (9-16); Calcium 9.5 mg/dL (8.4-10.2); Carbon Dioxide 25 mmol/L (22-29); Chloride 108 mmol/L (96-108); Cholesterol 172 mg/dL (<200); Estimated Glomerular Filt Rate > 60; Glucose Fasting 98 mg/dL (60-99); HDL Cholesterol 54 mg/dL (>40); LDL Cholesterol Calculated 101 mg/dL (<100); Potassium 4.2 mmol/L (3.3-5.1); Sodium 141 mmol/L (135-145); Triglycerides 87 mg/dL (<150)
== END 2024-01-21 06:05 | disposition home or self-care (01) ==
LOC: HO.HMGCLDS 06:04
PROVIDERS: PCP Internal Medicine; Visit Provider Internal Medicine
DX: I10 Essential (primary) hypertension (principal)
CPT/HCPCS: 36415; 80048; 80061; 84450; 84460

== ENCOUNTER 2024-01-22 08:12 | Outpatient (AMB) | payer MEDICARE, SELFPAY ==
--- NOTE | 2024-01-19 08:37 | A.OFFVIS_ITS ---
Intake Visit Reasons: Alma w/ Fiona req sooner appt Intake Note: Pt reports to the office fora 1 year follow up for cervical dystonia. Server Systems Administrator Required: No Allergies Fish Containing Products Allergy (Severe, Verified 01/19/24 08:38) ANAPHYLAXIS hydromorphone [From DILAUDID] Allergy (Severe, Verified 01/19/24 08:38) CHILLS,DIAPHORESIS povidone-iodine [From BETADINE] Allergy (Severe, Verified 01/19/24 08:38) ANAPHYLAXIS timolol [TIMOLOL] Allergy (Severe, Verified 01/19/24 08:38) ANAPHYLAXIS ENVIROMENTAL Allergy (Intermediate, Uncoded 01/19/24 08:38) HAYFEVER Lamisil Allergy (Unknown, Uncoded 01/19/24 08:38) Nausea/Dizzy/Airway trouble PFSH Medical History Rosacea Cervical dystonia Essential and other specified forms of tremor Coarse tremors History of eye prosthesis RBBB (right bundle branch block) Mild intermittent asthma Tremor of both hands COVID-19 vaccine series completed PONV (postoperative nausea and vomiting) Post-nasal drip Alopecia Basal cell carcinoma Retinal vein occlusion of right eye Psoriasis Spinal stenosis Nephrolithiasis Inguinal hernia Essential hypertension Glaucoma Renal oncocytoma BPH (benign prostatic hyperplasia) Cervicalgia Surgical History S/P left rotator cuff repair Hx of repair of right rotator cuff History of carpal tunnel surgery of right wrist H/O: vasectomy History of cataract surgery H/O circumcision H/O enucleation of right eyeball H/O ventral hernia repair Hx of cholecystectomy H/O left inguinal hernia repair H/O lithotripsy H/O partial nephrectomy S/P cervical discectomy History of orchiectomy Family History Father CVD (cardiovascular disease) HTN (hypertension) Social History Housing: House Are you a primary career placement specialist to a significant other at home: No Do you presently have visiting nurse or other home services: No Alcohol intake: never Patient Tobacco Use Status: Former Tobacco user Tobacco use type: Cigarette Years Smoked: 20 yrs e-Cigarette/Vaping Use: Never Used Second Hand Smoke Exposure: No service: No Current occupational status: retired Current occupation: left handed Cognitive needs: No Hearing needs: No Vision needs: Yes 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
--- NOTE | 2024-01-22 08:35 | A.OFFVIS_ITS ---
Vital Signs 01/22/24 08:36 Height 5 ft 8 in Weight 145 lb BMI 22.0 BP 132/78 Blood Pressure Location Rt brachial Respiration 16 Pulse 70 Pulse Source Pulse Oximeter Pulse Oximetry (%) 98 Oxygen Delivery Method Room Air Intake Visit Reasons: [place] w/ Fiona zhang sooner appt Intake Note: Pt presents to the office for 1 year follow up for cervical dystonia. He reports worsening of tremors. Reliability Technologist Required: No Allergies Fish Containing Products Allergy (Severe, Verified 01/22/24 08:35) ANAPHYLAXIS hydromorphone [From DILAUDID] Allergy (Severe, Verified 01/22/24 08:35) CHILLS,DIAPHORESIS povidone-iodine [From BETADINE] Allergy (Severe, Verified 01/22/24 08:35) ANAPHYLAXIS timolol [TIMOLOL] Allergy (Severe, Verified 01/22/24 08:35) ANAPHYLAXIS ENVIROMENTAL Allergy (Intermediate, Uncoded 01/22/24 08:35) HAYFEVER Lamisil Allergy (Unknown, Uncoded 01/22/24 08:35) Nausea/Dizzy/Airway trouble Medication List - Last Reconciled 01/22/24 by Ree Reyes MD albuterol sulfate 2.5 mg (3 mL) continuous nebulization Q6H PRN azelaic acid 15% topical azelastine 2 sprays intranasal BID betamethasone dipropionate 0.05% topical dupilumab 200 mg subcut .q month epinephrine 0.3 mg (0.3 mL) IM ONCE PRN finasteride 5 mg PO DAILY fluticasone propion-salmeterol 250-50 mcg/dose (Wixela Inhub) 1 inh inhalation Q12H fluticasone propionate 50 mcg/actuation 1 spray intranasal DAILY 90 days gabapentin 100 mg (2 mL) PO TID levalbuterol tartrate 45 mcg/actuation 1 inh PO Q4H PRN levocetirizine (Xyzal) 5 mg PO QPM lisinopril 5 mg PO DAILY travoprost 0.004% 1 drp ophthalmic (eye) valacyclovir mg PO PRN HPI Comments Details: 78y/o left handed male comes for follow up of tremors after 1 year. Calatrio was not approved . He reports noticeable tremors after his cervical spinal fusion surgery about 10 years ago. The tremors are in ajk UE left >right. In the past 1 year he has noticed increase in intensity of his tremors The tremors are mostly with action especially actions needing fine motor coordination. He has difficulty writing, drinking liquids without spilling etc. The intensity fluctuates . He is unclear if there are any factors that improve or worsen the tremors. No change in speech He has arthritis and has noticed increase in his neck pain.He follows up with Dr. Gutierres at [facility].He denies any new medications No exposure to neuroleptics He was trialed on primidone 50 mg helped his tremors but felt drowsy.He cannot use betablockers because of his asthma [facility] Medical History Rosacea Cervical dystonia Essential and other specified forms of tremor Coarse tremors History of eye prosthesis RBBB (right bundle branch block) Mild intermittent asthma Tremor of both hands COVID-19 vaccine series completed PONV (postoperative nausea and vomiting) Post-nasal drip Alopecia Basal cell carcinoma Retinal vein occlusion of right eye Psoriasis Spinal stenosis Nephrolithiasis Inguinal hernia Essential hypertension Glaucoma Renal oncocytoma BPH (benign prostatic hyperplasia) Cervicalgia Surgical History S/P left rotator cuff repair Hx of repair of right rotator cuff History of carpal tunnel surgery of right wrist H/O: vasectomy History of cataract surgery H/O circumcision H/O enucleation of right eyeball H/O ventral hernia repair Hx of cholecystectomy H/O left inguinal hernia repair H/O lithotripsy H/O partial nephrectomy S/P cervical discectomy History of orchiectomy Family History Father CVD (cardiovascular disease) HTN (hypertension) Social History Housing: House Are you a primary home care provider to a significant other at home: No Do you presently have visiting nurse or other home services: No Alcohol intake: never Patient Tobacco Use Status: Former Tobacco user Tobacco use type: Cigarette Years Smoked: 20 yrs e-Cigarette/Vaping Use: Never Used Second Hand Smoke Exposure: No service: No Current occupational status: retired Current occupation: left handed Cognitive needs: No Hearing needs: No Vision needs: Yes Review of Systems ENT Reports Normal hearing present Neuro Reports Normal hearing present Physical Exam Vital Signs: Last Vital Signs Pulse 70 01/22/24 08:36 Resp 16 01/22/24 08:36 BP 132/78 01/22/24 08:36 Pulse Ox 98 01/22/24 08:36 Oxygen Delivery Method Room Air 01/22/24 08:36 BMI result Body Mass Index 22.0 Const General: cooperative, healthy appearing, comfortable and no acute distress Nutritional Appearance: average body habitus Orientation/consciousness: patient oriented x3 Limitations: no limitations Neck Other: severe restricted range of motion, tenderness in left lateral and semispinalis Neuro Other: right eye- prosthetic Moderate amplitude postural and action tremors- L>R Poor handwriting difficulty drawing archimedes spirals No cog wheel rigidty no bradykinesia General: patient oriented x3, tone normal and moves all extremities Cranial nerves: Yes Nystagmus not present, Yes Normal facial strength present, Yes Symmetric palate elevation present and Yes Normal hearing present Cognition (Neuro): normal cognition Gait exam (Neuro): Normal gait present and Antalgic gait present Motor exam (neuro): 5/5 motor strength present throughout and Normal motor muscle tone present throughout Coordination: [id number] test normal Assessment & Plan Assessment & Plan (1) Essential and other specified forms of tremor: Code(s): G25.0 - Essential tremor; G25.2 - Other specified forms of tremor Category: Medical (2) Cervical dystonia: Code(s): G24.3 - Spasmodic torticollis Category: Medical Plan Patient is not a candidate for betablockers due to his asthma and failed primidone due to side effects I will trial him on gabapentin 100mg tid . He is interested in a nonpharmacological approach Calatrio- will send a prescription for apporval Zonisamide - concerned about glaucoma. Info on Focused US given to patient Medications: New gabapentin 100 mg (2 mL) PO TID 473 mL 6RF Coding Level of Care Code Est Pt Level 4 (99817) Complex EM visit Add On G2211 Diagnoses Essential and other specified forms of tremor G25.0; G25.2 Cervical dystonia G24.3
[2024-01-22 08:36] VITALS: BP 132/78; PULSE 70; RESP 16; O2SAT 98; BMI 22.0
== END 2024-01-22 09:05 | disposition home or self-care (01) ==
PROVIDERS: PCP Internal Medicine; Visit Provider Psychiatry & Neurology Neurology
DX: G25.0 Essential tremor (principal); G25.2 Other specified forms of tremor; G24.3 Spasmodic torticollis
CPT/HCPCS: 99214; G2211

== ENCOUNTER → 2024-01-22 08:12 | Outpatient (BNVA) | payer MEDICARE, SELFPAY | PROVIDERS: PCP Internal Medicine; Visit Provider Psychiatry & Neurology Neurology | DX: G25.0 Essential tremor (principal); G25.2 Other specified forms of tremor; G24.3 Spasmodic torticollis | CPT/HCPCS: 99212 ==

== ENCOUNTER 2024-02-03 08:18 | Outpatient (AMB) | payer MEDICARE, SELFPAY ==
--- NOTE | 2024-02-03 08:26 | A.OFFVIS_ITS ---
Intake Vital Signs 02/03/24 08:31 Height 5 ft 8 in Weight 148 lb BMI 22.5 BP 128/64 Blood Pressure Location Lt brachial Pulse 84 Pulse Source Pulse Oximeter Pulse Oximetry (%) 99 Oxygen Delivery Method Room Air Intake Visit Reasons: [id number] Intake Note: Pt is here today for his SWV Allergies Fish Containing Products Allergy (Severe, Verified 02/03/24 09:04) ANAPHYLAXIS hydromorphone [From DILAUDID] Allergy (Severe, Verified 02/03/24 09:04) CHILLS,DIAPHORESIS povidone-iodine [From BETADINE] Allergy (Severe, Verified 02/03/24 09:04) ANAPHYLAXIS timolol [TIMOLOL] Allergy (Severe, Verified 02/03/24 09:04) ANAPHYLAXIS ENVIROMENTAL Allergy (Intermediate, Uncoded 02/03/24 09:04) HAYFEVER Lamisil Allergy (Unknown, Uncoded 02/03/24 09:04) Nausea/Dizzy/Airway trouble Medication List - Last Reconciled 02/03/24 by Chela Mansfield MD albuterol sulfate 2.5 mg (3 mL) continuous nebulization Q6H PRN azelaic acid 15% topical azelastine 2 sprays intranasal BID betamethasone dipropionate 0.05% topical dupilumab 200 mg subcut .q month epinephrine 0.3 mg (0.3 mL) IM ONCE PRN finasteride 5 mg PO DAILY fluticasone propion-salmeterol 250-50 mcg/dose (Wixela Inhub) 1 inh inhalation Q12H gabapentin 100 mg (2 mL) PO TID levalbuterol tartrate 45 mcg/actuation 1 inh PO Q4H PRN levocetirizine (Xyzal) 5 mg PO QPM lisinopril 5 mg PO DAILY travoprost 0.004% 1 drp ophthalmic (eye) valacyclovir mg PO PRN HPI [id number] HPI Details SWV ? 78 year old presents male with history of rosacea, essential tremors, Raynaud's disease, allergic rhinitis, mild intermittent asthma, psoriasis, history of glaucoma, benign prostatic hyperplasia with history of renal oncocytoma and essential hypertension , here today for his ? Annual Wellness Visit, initial visit.? He had a normal screening colonoscopy done by Dr. Cisneros in 2009 due for recheck in 2019 but patient does not want to get further colonoscopy procedures. Followed by Dr. 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 He has history renal oncocytoma s/p right partial nephrectomy, followed by Dr. Brian. He sees Dr. Kay for his psoriasis. He had a lipid panel screening and fasting blood sugar screening 01/21/2024 with normal results. He is up-to-date with his yearly flu shot and RSV, 1 pneumococcal vaccine but refused to get Prevnar 20 or the shingles vaccination, hadhis COVID booster 12/30/2023. ? Medical / Social History Reviewed? Past Medical History ?Yes . ? [place] of Care / Care Team list updated ?Yes . ? Surgical/Hospitalization History ?Yes . ? Current Medications (including OTC and supplements) ?Yes . ? Family History ?Yes . ? Tobacco Control form ?Yes . ? AUDIT-C (Alcohol use) form ?Yes . ? Illicit drug use in Social History ?Yes . ? Current diagnosis of depression? ?No ? Appropriate PHQ2/PHQ9 completed ?Yes . ? Data entered by ?Utility Clerk and reviewed by provider ? Fall Risk ? Fall History? Have you had any falls with injury in the past year? ?No . ? Have you had two or more falls in the past year? ?No . ? Fall Risk Assessment: ?No falls in the past year . ? HRA filled out by the patient, reviewed by Provider and scanned. ? ISWV ? Balance? Romberg ? .negative ? Tandem walk ?Yes . ? Walk and Turn ?Yes . ? Rise from sit to stand ?Yes . ?Vision? Corrective lens ?Yes, artificial eye OD ? Vision screen ? Up-to-date, has an appointment Dr Dominguez ?Hearing? Whisper test ?pass, wears hearing aids . ?Written Plan?Completed. See Patient Documents.? [facility] Medical History (Updated 02/03/24 @ 09:36 by Chela Mansfield MD) Rosacea Cervical dystonia Essential and other specified forms of tremor History of eye prosthesis RBBB (right bundle branch block) Mild intermittent asthma Tremor of both hands COVID-19 vaccine series completed PONV (postoperative nausea and vomiting) Alopecia Basal cell carcinoma Retinal vein occlusion of right eye Psoriasis Spinal stenosis Nephrolithiasis Inguinal hernia Essential hypertension Glaucoma Renal oncocytoma BPH (benign prostatic hyperplasia) Cervicalgia Surgical History S/P left rotator cuff repair Hx of repair of right rotator cuff History of carpal tunnel surgery of right wrist H/O: vasectomy History of cataract surgery H/O circumcision H/O enucleation of right eyeball H/O ventral hernia repair Hx of cholecystectomy H/O left inguinal hernia repair H/O lithotripsy H/O partial nephrectomy S/P cervical discectomy History of orchiectomy Family History Father CVD (cardiovascular disease) HTN (hypertension) Social History Housing: House Are you a primary pediatric acute care unit nurse to a significant other at home: No Do you presently have visiting nurse or other home services: No Alcohol intake: never Patient Tobacco Use Status: Former Tobacco user Tobacco use type: Cigarette Years Smoked: 20 yrs e-Cigarette/Vaping Use: Never Used Second Hand Smoke Exposure: No service: No Current occupational status: retired Current occupation: left handed Cognitive needs: No Hearing needs: No Vision needs: Yes Questionnaire Medicare Wellness Checkup [age] What gender do you identify with?: male During the past 4 weeks, how much have you been bothered by emotional problems such as feeling anxious, depressed, irritable, sad or downhearted, and blue?: not at all During the past 4 weeks, has your physical & emotional health limited your social activities with family, friends, neighbors, or groups?: not at all During the past 4 weeks, how much bodily pain have you generally had?: very mild pain During the past 4 weeks, was someone available to help you if you needed & wanted help?: yes, as much as I wanted During the past 4 weeks, what was the hardest physical activity you could do for at least 2 minutes?: heavy Can you get to places out of walking distance without help? (For eg., can you travel alone on buses, taxis or drive your car?): Yes Can you go shopping for groceries or clothes without someone's help?: Yes Can you prepare your own meals?: Yes Can you do your housework without help?: Yes Because of any health problems, do you need the help of another person with your personal care needs such as eating, bathing, dressing or getting around the house?: No Can you handle your own money without help?: Yes During the past 4 weeks, how would you rate your health in general?: good During the past 4 weeks how have things been going for you?: pretty well Are you having difficulties driving your car?: no Do you always fasten your seat belt when you are in a car?: yes, usually During past 4 weeks, have you been bothered by the following: never: Falling or dizzy when standing up, Trouble eating well? and Problems using the telephone?, seldom: Tiredness or fatigue? and sometimes: Teeth or denture problems? Have you fallen 2 or more times in the past year?: No Are you afraid of falling?: No Are you a smoker?: no During the past 4 weeks, how many drinks of wine, beer, or other alcoholic beverages did you have?: no alcohol at all Do you exercise for about 20 minutes 3 or more times a week?: yes, most of the time Have you been given information to help with the following?: yes: Hazards in your house that might hurt you? and yes: Keeping track of your medications? How often do you have trouble taking medicines the way you have been told to take them?: I always take medicine as prescribed How confident are you that you can control & manage most of your health problems?: very confident What is your race?: White Mini Mental State Exam (MMSE) Orientation What is the (year) (season) (date) (day) (month)?: year (2023), season (Fall), date (02/03/2024), day (Friday) and month (January) Where are we (state) (county) (town or city) (hospital) (floor)?: state ([place]), [facility] ([place]), town or city ([place]) and hospital/clinic ([facility]) Score Score: 9 Activity of Daily Living Bathing - sponge bath, tub bath or shower: receives no assistance (gets in/out by self, if usual bathing means Toileting - going to the 'toilet room' for urine/bowel elimination & cleaning self/arranging clothes: goes to toilet room, cleans self, arranges clothes without help Transfer: moves in & out of bed and chair without help (may use support object) Continence: controls urination/bowel movements completely by self Feeding: feeds self without help Total Score: 0 Information obtained from: patient Using telephone: independent Traveling: independent Shopping: independent Preparing meals: independent Housework: independent Taking medicine: independent Managing money: independent PHQ-9 Over the last 2 weeks, how often have you been bothered by any of the following problems? 1. Little interest or pleasure in doing things: not at all 2. Feeling down, depressed, or hopeless: not at all 3. Trouble falling or staying asleep, or sleeping too much: not at all 4. Feeling tired or having little energy: not at all 5. Poor appetite or overeating: not at all 6. Feeling bad about yourself - or that you are a failure or have let yourself or your family down: not at all 7. Trouble concentrating on things, such as reading the newspaper or watching television: not at all 8. Moving or speaking so slowly that other people could have noticed. Or the opposite - being so fidgety or restless that you have been moving around a lot more than usual: not at all 9. Thoughts that you would be better off or of hurting yourself in some way: not at all Total score: 0 Depression Screening Interpretation: Negative Depression Screening Done: Yes 17227 - PHQ-9 Billing: Yes Source: Developed by Drs. Brandon De La Torre, Masha Conti, Bridger Corral and colleagues, with an educational ling from [employer]. Physical Exam Vital Signs: Last Vital Signs Pulse 84 02/03/24 08:31 BP 128/64 02/03/24 08:31 Pulse Ox 99 02/03/24 08:31 Oxygen Delivery Method Room Air 02/03/24 08:31 BMI result Body Mass Index 22.5 Assessment & Plan Assessment & Plan (1) Encounter for subsequent annual wellness visit (AWV) in Medicare patient: Code(s): Z00.00 - Encounter for general adult medical examination without abnormal findings Plan: Medical wellness checklist reviewed, discussed with patient and updated. Copy given (2) Glaucoma: Code(s): H40.9 - Unspecified glaucoma Qualifiers: Glaucoma type: unspecified Laterality: left Qualified Code(s): H40.9 - Unspecified glaucoma Plan: Followed by Dr. Dominguez (3) Essential hypertension: Code(s): I10 - Essential (primary) hypertension Plan: Blood pressure at goal of less than 130/80. Continue with current medication. Reinforced importance of following a low sodium diet, getting regular exercise, and lowering stress levels. (4) Psoriasis: Code(s): L40.9 - Psoriasis, unspecified Plan: Currently on Dupixent followed by dermatology, Dr. Kay (5) Rosacea: Comment: Followed by dermatology Code(s): L71.9 - Rosacea, unspecified Plan: Currently followed by dermatology (6) Essential and other specified forms of tremor: Code(s): G25.0 - Essential tremor; G25.2 - Other specified forms of tremor Plan: Placed on gabapentin by his neurologist, Dr. Reyes (7) Allergic rhinitis: Code(s): J30.9 - Allergic rhinitis, unspecified Qualifiers: Allergic rhinitis seasonality: unspecified Allergic rhinitis trigger: unspecified Qualified Code(s): J30.9 - Allergic rhinitis, unspecified Plan: Better controlled with Azelastine nasal spray (8) Renal oncocytoma: Comment: followed by urology Code(s): D30.00 - Benign neoplasm of unspecified kidney Plan: Followed by Dr. Brian (9) BPH (benign prostatic hyperplasia): Code(s): N40.0 - Benign prostatic hyperplasia without lower urinary tract symptoms Plan: Sees Urology, Dr. Brian (10) Advanced directives, counseling/discussion: Code(s): Z71.89 - Other specified counseling Plan: Initiated the conversation about Advanced Directives. Advanced Directives help patients prepare for current and future decisions about their medical treatment and place of care. Discussed with patient that it is a process where a patients current condition and prognosis are reviewed, their wishes for information regarding their illness are elicited, and likely medical dilemmas are presented and options discussed. MOLST and healthcare proxy form completed today. These forms can be amended as needed, reviewed yearly and make changes as needed Orders: Orders Alanine Aminotransferase 07/20/24 I10 - Essential (primary) hypertension, L40.9 - Psoriasis, unspecified Aspartate Amino Transferase 07/20/24 I10 - Essential (primary) hypertension, L40.9 - Psoriasis, unspecified Lipid Panel 07/20/24 I10 - Essential (primary) hypertension, L40.9 - Psoriasis, unspecified Basic Metabolic Panel Fasting 07/20/24 I10 - Essential (primary) hypertension, L40.9 - Psoriasis, unspecified Quality Reporting (2019) Depression/Bipolar (159/160/161/177) PHQ-9: Total score: 0 Coding Level of Care Code Medicare First (G0438) Diagnoses Encounter for subsequent annual wellness visit (AWV) in Medicare patient Z00.00 Glaucoma of left eye, unspecified glaucoma type H40.9 Glaucoma type: unspecified Laterality: left Essential hypertension I10 Psoriasis L40.9 Rosacea L71.9 Essential and other specified forms of tremor G25.0; G25.2 Allergic rhinitis, unspecified seasonality, unspecified trigger J30.9 Allergic rhinitis seasonality: unspecified Allergic rhinitis trigger: unspecified Renal oncocytoma D30.00 BPH (benign prostatic hyperplasia) N40.0 Advanced directives, counseling/discussion Z71.89 CPT Codes Advance Care Planning - Time spent: 16-45 minutes ([id number]) Advance Care Planning Advance Care Planning discussion: Completed/Scanned Date of discussion: 02/03/24 Who was present: Patient Forms completed: Health Care Proxy and MOLST Time spent: 16-45 minutes Actual minutes spent: 16
[2024-02-03 08:31] VITALS: BP 128/64; PULSE 84; O2SAT 99; BMI 22.5
== END 2024-02-03 09:47 | disposition home or self-care (01) ==
PROVIDERS: PCP Internal Medicine; Visit Provider Internal Medicine
DX: Z00.00 Encounter for general adult medical examination without abnormal findings (principal); H40.9 Unspecified glaucoma; I10 Essential (primary) hypertension; L40.9 Psoriasis, unspecified; L71.9 Rosacea, unspecified; G25.0 Essential tremor; G25.2 Other specified forms of tremor; J30.9 Allergic rhinitis, unspecified; D30.00 Benign neoplasm of unspecified kidney; N40.0 Benign prostatic hyperplasia without lower urinary tract symptoms

== ENCOUNTER → 2024-02-03 08:18 | Outpatient (BNVA) | payer MEDICARE, SELFPAY | PROVIDERS: PCP Internal Medicine; Visit Provider Internal Medicine | DX: Z00.00 Encounter for general adult medical examination without abnormal findings (principal); H40.9 Unspecified glaucoma; I10 Essential (primary) hypertension; Z79.899 Other long term (current) drug therapy; L40.9 Psoriasis, unspecified; L71.9 Rosacea, unspecified; G25.0 Essential tremor; G25.2 Other specified forms of tremor; J30.9 Allergic rhinitis, unspecified; D30.00 Benign neoplasm of unspecified kidney; N40.0 Benign prostatic hyperplasia without lower urinary tract symptoms; Z71.89 Other specified counseling | CPT/HCPCS: 96127; 99497 ==

== ENCOUNTER 2024-04-28 07:20 | Outpatient (AMB) | payer MEDICARE, SELFPAY ==
[2024-04-28 07:36] VITALS: BP 130/70; PULSE 71; O2SAT 98; BMI 22.7
--- NOTE | 2024-04-28 07:36 | A.OFFVIS_ITS ---
Vital Signs 04/28/24 07:36 Height 5 ft 8 in Weight 149 lb 2 oz BMI 22.7 BP 130/70 Blood Pressure Location Rt brachial Position Sitting Pulse 71 Pulse Source Pulse Oximeter Pulse Oximetry (%) 98 Oxygen Delivery Method Room Air Intake Visit Reasons: Follow up Supervisor Firearms Required: No Accompanied by: Spouse Allergies Fish Containing Products Allergy (Severe, Verified 04/28/24 07:38) ANAPHYLAXIS hydromorphone [From DILAUDID] Allergy (Severe, Verified 04/28/24 07:38) CHILLS,DIAPHORESIS povidone-iodine [From BETADINE] Allergy (Severe, Verified 04/28/24 07:38) ANAPHYLAXIS timolol [TIMOLOL] Allergy (Severe, Verified 04/28/24 07:38) ANAPHYLAXIS ENVIROMENTAL Allergy (Intermediate, Uncoded 02/03/24 09:04) HAYFEVER Lamisil Allergy (Unknown, Uncoded 02/03/24 09:04) Nausea/Dizzy/Airway trouble Medication List - Last Reconciled 04/28/24 by Ree Reyes MD albuterol sulfate 2.5 mg (3 mL) continuous nebulization Q6H PRN azelaic acid 15% topical azelastine 2 sprays intranasal BID betamethasone dipropionate 0.05% topical dupilumab 200 mg subcut .q month epinephrine 0.3 mg (0.3 mL) IM ONCE PRN finasteride 5 mg PO DAILY fluticasone propion-salmeterol 250-50 mcg/dose (Wixela Inhub) 1 inh inhalation Q12H gabapentin 100 mg (2 mL) PO TID levalbuterol tartrate 45 mcg/actuation 1 inh PO Q4H PRN levocetirizine (Xyzal) 5 mg PO QPM lisinopril 5 mg PO DAILY travoprost 0.004% 1 drp ophthalmic (eye) valacyclovir mg PO PRN Do you need a note to return to daycare/school/sports/work: No HPI Comments Details: 79y/o left handed male comes for follow up of tremors.He started calatrio Apr 13 2024.for his left UE. He uses it 4-5 times a day - the effect lasts 40 minutes . It is 70% or more less tremors most of the times.He used caltrio this AM at 6am He is able to use his computer and other activities gabapentin montilla snot help him and has some side effects like dry mouth. He also reports discomfort in his feet when he is lying down - burning sensatiion, feels hot. He is good during daytime. but once he gets to bed the symptoms start and wakes up a few times. History from initial visit- He reports noticeable tremors after his cervical spinal fusion surgery about 10 years ago. The tremors are in jak UE left >right. In the past 1 year he has noticed increase in intensity of his tremors The tremors are mostly with action especially actions needing fine motor coordination. He has difficulty writing, drinking liquids without spilling etc. The intensity fluctuates . He is unclear if there are any factors that improve or worsen the tremors. No change in speech He has arthritis and has noticed increase in his neck pain.He follows up with Dr. Gutierres at [facility].He denies any new medications No exposure to neuroleptics He was trialed on primidone 50 mg helped his tremors but felt drowsy.He cannot use betablockers because of his asthma [facility] Medical History Rosacea Cervical dystonia Essential and other specified forms of tremor History of eye prosthesis RBBB (right bundle branch block) Mild intermittent asthma Tremor of both hands COVID-19 vaccine series completed PONV (postoperative nausea and vomiting) Alopecia Basal cell carcinoma Retinal vein occlusion of right eye Psoriasis Spinal stenosis Nephrolithiasis Inguinal hernia Essential hypertension Glaucoma Renal oncocytoma BPH (benign prostatic hyperplasia) Cervicalgia Surgical History S/P left rotator cuff repair Hx of repair of right rotator cuff History of carpal tunnel surgery of right wrist H/O: vasectomy History of cataract surgery H/O circumcision H/O enucleation of right eyeball H/O ventral hernia repair Hx of cholecystectomy H/O left inguinal hernia repair H/O lithotripsy H/O partial nephrectomy S/P cervical discectomy History of orchiectomy Family History Father CVD (cardiovascular disease) HTN (hypertension) Social History Housing: House Are you a primary childcare center administrator to a significant other at home: No Do you presently have visiting nurse or other home services: No Alcohol intake: never Patient Tobacco Use Status: Former Tobacco user Tobacco use type: Cigarette Years Smoked: 20 yrs e-Cigarette/Vaping Use: Never Used Second Hand Smoke Exposure: No service: No Current occupational status: retired Current occupation: left handed Cognitive needs: No Hearing needs: No Vision needs: Yes Review of Systems ENT Reports Normal hearing present Neuro Reports Normal hearing present Physical Exam Vital Signs: Last Vital Signs Pulse 71 04/28/24 07:36 BP 130/70 04/28/24 07:36 Pulse Ox 98 04/28/24 07:36 Oxygen Delivery Method Room Air 04/28/24 07:36 BMI result Body Mass Index 22.7 Const General: cooperative, healthy appearing, comfortable and no acute distress Nutritional Appearance: average body habitus Orientation/consciousness: patient oriented x3 Limitations: no limitations Neck Other: severe restricted range of motion, tenderness in left lateral and semispinalis Neuro Other: right eye- prosthetic Mild amplitude postural and action tremors- L>R Poor handwriting difficulty drawing archimedes spirals No cog wheel rigidty no bradykinesia General: patient oriented x3, tone normal and moves all extremities Cranial nerves: Yes Nystagmus not present, Yes Normal facial strength present, Yes Symmetric palate elevation present and Yes Normal hearing present Cognition (Neuro): normal cognition Gait exam (Neuro): Normal gait present and Antalgic gait present Motor exam (neuro): 5/5 motor strength present throughout and Normal motor muscle tone present throughout Coordination: [id number] test normal Assessment & Plan Assessment & Plan (1) Essential and other specified forms of tremor: Code(s): G25.0 - Essential tremor; G25.2 - Other specified forms of tremor Category: Medical (2) Cervical dystonia: Code(s): G24.3 - Spasmodic torticollis Category: Medical (3) Restless legs syndrome (RLS): Code(s): G25.81 - Restless legs syndrome Category: Medical Plan Patient is not a candidate for betablockers due to his asthma and failed primidone due to side effects Stop gabapentin - dry mouth. He is interested in a nonpharmacological approach Calatrio- continue and monitor response. Zonisamide - concerned about glaucoma. Info on Focused US given to patient Ropinirole 0.25 mg 1- 4tabs qhs Orders: Orders Vitamin B12 and Folate Today - Restless legs syndrome Comprehensive Met. Panel Today - Restless legs syndrome Complete Blood Count Auto Diff Today - Restless legs syndrome Ferritin Today - Restless legs syndrome TSH reflex Free T4 Today - Restless legs syndrome Vitamin D 25-OH (D2 and D3) Today - Restless legs syndrome Medications: New ropinirole 1-4 orally bedtime; administer 1-3 hours before bedtime 120 tabs 2RF Discontinued gabapentin Discontinued Reason: Patient no longer taking 100 mg (2 mL) PO TID 473 mL 6RF Coding Level of Care Code Est Pt Level 4 (97819) Complex EM visit Add On G2211 Diagnoses Essential and other specified forms of tremor G25.0; G25.2 Cervical dystonia G24.3 Restless legs syndrome (RLS) G281
== END 2024-04-28 08:14 | disposition home or self-care (01) ==
PROVIDERS: PCP Internal Medicine; Visit Provider Psychiatry & Neurology Neurology
DX: G25.0 Essential tremor (principal); G25.2 Other specified forms of tremor; G24.3 Spasmodic torticollis; G25.81 Restless legs syndrome
CPT/HCPCS: 99214; G2211

== ENCOUNTER 2024-04-28 07:20 | Outpatient (REF) | payer MEDICARE, SELFPAY ==
[2024-04-28 17:41] LABS: MANUAL DIFF FLAG NO
[2024-04-28 18:00] LABS: Basophils Absolute Auto 0.1 X10*3/uL (0.0-0.2); Basophils Percent Auto 1.1 % (0-2); Eosinophils Absolute Auto 0.5 X10*3/uL (0.0-0.4); Eosinophils Percent Auto 6.4 % (0-4); Hematocrit 49.9 % (42.0-52.0); Hemoglobin 16.6 g/dl (14.0-18.0); Imm Gran Abs Auto 0.09 X10*3/uL (0.00-0.03); Imm Gran Pct Auto 1.2 % (0.0-0.4); Lymphocytes Absolute Auto 1.5 X10*3/uL (1.2-4.9); Lymphocytes Percent Auto 20.3 % (20-40); Mean Corpuscular HGB Conc 33.3 g/dl (31.0-36.0); Mean Corpuscular Hemoglobin 30.5 pg (27.0-33.0); Mean Corpuscular Volume 91.7 fL (80.0-98.0); Mean Platelet Volume 9.6 fL (9.4-12.4); Monocytes Absolute Auto 0.8 X10*3/uL (0.1-1.2); Monocytes Percent Auto 10.4 % (2-11); Neutrophils Absolute Auto 4.5 x10*3/uL (2.0-8.3); Neutrophils Percent Auto 60.6 % (45-73); Platelet Count 323 X10*3/uL (160-400); Red Blood Count 5.44 X10*6/uL (4.60-5.80); Red Cell Distribution Width 13.9 % (11.0-16.0); White Blood Count 7.5 X10*3/uL (4.8-10.8)
[2024-04-28 18:33] LABS: Albumin Level 4.2 g/dL (3.5-5.0); Alkaline Phosphatase 74 U/L (39-117); Anion Gap 15 (12-20); Aspartate Amino Transferase 28 U/L (5-37); Bilirubin Total 0.5 mg/dL (0.0-1.0); Blood Urea Nitrogen 14 mg/dL (9-16); Calcium 9.8 mg/dL (8.4-10.2); Carbon Dioxide 25 mmol/L (22-29); Chloride 107 mmol/L (96-108); Estimated Glomerular Filt Rate > 60; Ferritin 160 ng/mL (20-250); Glucose Random 96 mg/dL (60-115); Potassium 4.8 mmol/L (3.3-5.1); Sodium 142 mmol/L (135-145); TSH reflex Free T4 0.56 uIU/mL (0.32-4.0); Total Protein 7.4 g/dL (6.5-8.0)
[2024-04-28 18:40] LABS: Folate 5.7 ng/mL (> or = 4.0); Vitamin B12 369 pg/mL (200-900)
[2024-04-28 18:50] LABS: Alanine Aminotransferase 23 U/L (0-40)
[2024-05-02 14:43] LABS: Vitamin D 25-OH, D2 <4 ng/mL; Vitamin D 25-OH, D3 34 ng/mL; Vitamin D 25-OH, Total 34 ng/mL (30-100)
== END 2024-04-28 07:21 | disposition home or self-care (01) ==
LOC: HO.HKASLDS 07:20
PROVIDERS: PCP Internal Medicine; Visit Provider Psychiatry & Neurology Neurology
DX: G25.81 Restless legs syndrome (principal)
CPT/HCPCS: 36415; 80053; 82306; 82607; 82728; 82746; 84443; 85025; 99212

== ENCOUNTER 2024-06-21 09:18 | Outpatient (AMB) | payer MEDICARE, SELFPAY ==
--- NOTE | 2024-06-21 09:21 | MHC.OFFVIS ---
Vital Signs 06/21/24 09:22 Height 5 ft 8 in Weight 149 lb BMI 22.7 Intake Visit Reasons: New prob- Left knee pain Intake Note: Juve is a 79 year old male who presents today for a new problem visit with complaints of left knee pain. Patient reports that he has been having ongoing left knee pain for about 6 weeks now .Denies injury. He has pain across the knee cap, he has pain mostly with flexion. Allergies Fish Containing Products Allergy (Severe, Verified 06/21/24 09:33) ANAPHYLAXIS hydromorphone [From DILAUDID] Allergy (Severe, Verified 06/21/24 09:33) CHILLS,DIAPHORESIS povidone-iodine [From BETADINE] Allergy (Severe, Verified 06/21/24 09:33) ANAPHYLAXIS timolol [TIMOLOL] Allergy (Severe, Verified 06/21/24 09:33) ANAPHYLAXIS ENVIROMENTAL Allergy (Intermediate, Uncoded 06/21/24 09:33) HAYFEVER Lamisil Allergy (Unknown, Uncoded 06/21/24 09:33) Nausea/Dizzy/Airway trouble HPI HPI New prob- Left knee pain: Details: Juve is a 79 year old male who presents today for a new problem visit with complaints of left knee pain. Patient reports that he has been having ongoing left knee pain for about 6 weeks now. Denies injury. He has pain across the knee cap, he has pain mostly with flexion. [facility] Medical History Restless legs syndrome (RLS) Rosacea Cervical dystonia Essential and other specified forms of tremor History of eye prosthesis RBBB (right bundle branch block) Mild intermittent asthma Tremor of both hands COVID-19 vaccine series completed PONV (postoperative nausea and vomiting) Alopecia Basal cell carcinoma Retinal vein occlusion of right eye Psoriasis Spinal stenosis Nephrolithiasis Inguinal hernia Essential hypertension Glaucoma Renal oncocytoma BPH (benign prostatic hyperplasia) Cervicalgia Surgical History S/P left rotator cuff repair Hx of repair of right rotator cuff History of carpal tunnel surgery of right wrist H/O: vasectomy History of cataract surgery H/O circumcision H/O enucleation of right eyeball H/O ventral hernia repair Hx of cholecystectomy H/O left inguinal hernia repair H/O lithotripsy H/O partial nephrectomy S/P cervical discectomy History of orchiectomy Family History Father CVD (cardiovascular disease) HTN (hypertension) Social History Housing: House Are you a primary home care manager rn to a significant other at home: No Do you presently have visiting nurse or other home services: No Alcohol intake: never Patient Tobacco Use Status: Former Tobacco user Tobacco use type: Cigarette Years Smoked: 20 yrs e-Cigarette/Vaping Use: Never Used Second Hand Smoke Exposure: No service: No Current occupational status: retired Current occupation: left handed Cognitive needs: No Hearing needs: No Vision needs: Yes Physical Exam Vital Signs: BMI result Body Mass Index 22.7 Extrem Other: No effusion left knee. He has mild tenderness to palpation over the prepatellar bursa without swelling. Results Reviewed Results Reviewed: I personally reviewed relevant radiographs. Mild patellofemoral osteoarthritis but otherwise unremarkable radiographs Assessment & Plan Assessment & Plan (1) Prepatellar bursitis, left knee: Code(s): M70.42 - Prepatellar bursitis, left knee Category: Medical Plan: 79-year-old gentleman with prepatellar bursitis of the left knee. No intervention warranted. We had a long discussion. He is extremely active. He can modify his symptoms with activity management if he so desires but the problem overall seems quite mild at this point. Orders: Orders XR knee RT 1V Today M25.569 - Pain in unspecified knee XR knee LT 3V Today M25.562 - Pain in left knee Coding Level of Care Code Est Pt Level 3 (93745) Diagnoses Prepatellar bursitis, left knee M70.42
[2024-06-21 09:22] VITALS: BMI 22.7
--- OUTSIDE RECORDS SUMMARY | 2024-06-21 10:06 | XMS_ITS ---
Author Organization [facility] Address [address] [place] [address] Care Team Providers Care Polls Or Surveys Interviewer Name Role Phone Shyla GARCIA, Chela Hassan Primary Care Provider Un available Lisette Hong [phone] REASON FOR VISIT [facility] RX Encounters Encounter Location Date Provider Diagnosis [address] [address] 06/15/2024 Lisette Hong Plan Of Treatment Next Appt Details Provider Name:Lisette norman, 09/07/2024 09:15:00 AM, [address] [place], [address], Progress Notes * Juve EATON RDOB: [birth year] (79 yo M)Acc No.[id number]:06/15/2024 Patient:?Juve EATON :1945???Age:79 Y???Sex:Male Address:[address] [place] [address], [place], [address] * true * Date:? Generated for Printi ng/Fasajig/eTransmitting on:?06/21/2024 10:06 AM EST
--- OUTSIDE RECORDS SUMMARY | 2024-06-21 10:07 | XMS_ITS | Patient Health Record ---
Author Organization [facility] Address [address] [place] [address] Care Team Providers Care Branch Lending Officer Name Role Phone Shyla GARCIA, Chela Hassan Primary Care Provider Un available Lisette Hong Unavailable [phone] Allergies Allergen (clinical drug ingredient) Drug/Non Drug Allergy documented on EMR Reaction Allergy Type Onset Date Status povidone-iodine Betadine Unknown Drug Allergy A ctive hydromorphone Dilaudid Unknown Drug Allergy Act guillermo Terbinafine dizziness Drug Allergy Activ e timolol Timolol Maleate Unknown Drug Allergy A ctive Adhesive Tape Unknown Drug Allergy Act guillermo shrimp allergenic extract Shrimp (Diagnostic) Unknown Drug Allergy Active Iodine Unknown Drug Allergy Active Latex Latex Unknown Allergy Active Shellfish (FN) Shellfish-derived Products Unknown Drug Allergy Active Reason For Referral No Information Medications Medication SIG (Take, Route, Frequency, Duration) Notes Start Date End Date Status Terbinafine HCl Not- Taking LamISIL 250 MG 1 tablet Orally Once a day for 14 days 11/03/2015 Not-Taking Refresh Active Lisinopril 5 MG Orally Acti ve Levalbuterol HCl Act guillermo Finasteride Active zzzCompression Stockings 20-30mm Hg . . . for . Not-Taking Ammonium Lactate 12 % 1 application Externally to affected areas of dry skin to feet except for between the toes Twice a day for 30 days Active zzzCompression Stockings 20-30mm Hg . . . for . As needed Active Symbicort Active Desonide-Moisturizing Cream Not-Taking Ciclopirox 0.77 % 1 application to affected area Externally Twice a day to effected nails for 30 days 07/17/2021 Not-Taking ASO Ankle/Foot Stablizing AFO As directed Wear Daily for as needed 04/28/2018 Not-Taking Refresh Dry Eye Therapy Not-Taking Travatan Z Not-Takin g ProAir HFA PRN Not-Takin g Doxycycline Not-Taki ng Azelastine HCl Activ e Ketoconazole 2 % 1 application to affected area Externally Twice a day for as needed 11/07/2016 Not-Taking Wixela Inhub Active Naftin 1 % 1 application to affected area Externally Twice a day for 30 days 11/05/2016 Not-Taking Nystatin-Triamcinolone 178101-2.1 UNIT/GM-% 1 application to affected area Externally Twice a day to affected areas on feet for 30 days 11/05/2016 Not-Taking Nightsplint . . . AFO - L1930 for . Not-Taking Dupixent Active compression stockings 20-30mmhg 1 pair With zippers daily 09/09/2023 Active Betamethasone Dipropionate Active Travatan Active Ciclopirox Olamine 0.77% external Apply to effected areas twice a day for 30 days 07/25/2015 Not-Taking Immunizations Vaccine Route Administration Date Status Comme nts COVID-19 Pfizer BioNTech Vaccine Unknown 01/16/2021 Administered First Dose:06/02/20 Second Dose: 06/23/2020 Social History Tobacco Use: Social History Observation Description Date Details (start date - stop date) Never Smoker NA - NA Alcohol Screen Question Answer Notes Did you have a drink containing alcohol in the p ast year? No Points 0 Interpretation Negative Tobacco use other than smoking: Question Answer Notes Are you an other tobacco user? No Tobacco Control (Standard) Question Answer Notes Tobacco use: Nonsmoker Problems Problem Type SNOMED Code ICD Code Onset Dates Problem Status W/U Status Risk Notes Problem Mononeuropathy of lower limb (743078694) Neuritis of left foot (G57.92) Active confirmed Vital Signs Blood pressure diastolic 68 mm Hg 06/09/2024 Height 5ft 8in in 06/09/2024 Blood pressure systolic 172 mm Hg 06/09/2024 Weight 150 lbs 06/09/2024 BMI 22.8 kg/m2 06/09/2024 Encounters Encounter Location Date Provider Diagnosis [place] [address] [address] 09/09/2023 Lisette Perica Tinea unguium B35.1 ; Edema, lower extremity R60.0 ; Pain in right toe(s) M79.674 and Pain in left toe(s) M79.[address] [address] 12/09/2023 Lisette Perica Edema, lower extremity R60.0 ; Xerosis of skin L85.3 ; Tinea unguium B35.1 ; Pain in right toe(s) M79.674 and Pain in left toe(s) M79.[address] [address] 03/10/2024 Lisette Perica Tinea unguium B35.1 ; Xerosis of skin L85.3 ; Pain in right toe(s) M79.674 and Pain in left toe(s) M79.[address] [address] 06/09/2024 Lisette Perica Xerosis of skin L85.3 ; Neuritis of left foot G57.92 ; Tinea unguium B35.1 ; Pain in right toe(s) M79.674 ; Pain in left toe(s) M79.675 ; Pain in left foot M79.672 and Lower extremity edema R60.[address] [address] 06/15/2024 Lisette Perica Assessments Encounter Date Diagnosis (ICD Code) Assessment Notes Treatment Notes Treatment Clinical Notes Section Notes 09/09/2023 Edema, lower extremity (ICD-10 - R60.0) 12/09/2023 Xerosis of skin (ICD-10 - L85.3) 12/09/2023 Edema, lower extremity (ICD-10 - R60.0) 03/10/2024 Tinea unguium (ICD-10 - B35.1) 09/09/2023 Tinea unguium (ICD-10 - B35.1) 06/09/2024 Xerosis of skin (ICD-10 - L85.3) 06/09/2024 Neuritis of left foot (ICD-10 - G57.92) 09/09/2023 Pain in right toe(s) (ICD-10 - M79.674) 03/10/2024 Pain in right toe(s) (ICD-10 - M79.674) 03/10/2024 Xerosis of skin (ICD-10 - L85.3) 06/09/2024 Tinea unguium (ICD-10 - B35.1) 12/09/2023 Tinea unguium (ICD-10 - B35.1) 12/09/2023 Pain in right toe(s) (ICD-10 - M79.674) 06/09/2024 Pain in right toe(s) (ICD-10 - M79.674) 03/10/2024 Pain in left toe(s) (ICD-10 - M79.675) 09/09/2023 Pain in left toe(s) (ICD-10 - M79.675) 06/09/2024 Pain in left toe(s) (ICD-10 - M79.675) 12/09/2023 Pain in left toe(s) (ICD-10 - M79.675) 06/09/2024 Pain in left foot (ICD-10 - M79.672) 06/09/2024 Lower extremity edema (ICD-10 - R60.0) Plan Of Treatment Pending Test Test Name Order Date X ray : Ankle, left 3V 12/12/2015 [id number] NAIL, 6 OR MORE 01/09/2016 [id number] NAIL, 6 OR MORE 04/09/2016 [id number] NAIL, 6 OR MORE 08/06/2016 [id number] NAIL, 6 OR MORE 11/05/2016 [id number] NAIL, 6 OR MORE 02/04/2017 [id number] NAIL, 6 OR MORE 05/06/2017 [id number] NAIL, 6 OR MORE 08/05/2017 [id number] NAIL, 6 OR MORE 11/04/2017 [id number] NAIL, 6 OR MORE 02/03/2018 [id number] NAIL, 6 OR MORE 04/28/2018 [id number] NAIL, 6 OR MORE 07/25/2015 [id number] NAIL, 6 OR MORE 10/31/2015 [id number] Destruction, 1-14 11/05/2016 Next Appt Details Provider Name:Lisette Ferdinand norman, 09/07/2024 09:15:00 AM, [address] [facility], [place], [address], Insurance Providers Payer Name Payer Address Payer Phone Subscriber Number Group Number Insured Name Patient Relationship to Insured Coverage Start Date Coverage End Date Medicare National Govt [employer] [address] [place] [address] [id number] Juve Eaton Self - patient is the insured [employer] [address] [place] [address] [id number] Juve Eaton Self - patient is the insured Medical (General) History Medical History History ICD Code Broken bones asthma Glaucoma High blood pressure Psoriasis Joint implants/screws Measles Mumps Surgical History Surgery Date(Month/Year) cataract left eye with intraocular lens implant 08/18/2000 broken ankle 01/2002 right kidney surger and gall bladder rem oval 06/2002 left kidney surgery 07/2002 right eye removed 02/22/2004 lithotripsy 07/05/2009 hernia repair 05/29/2012 removal of tacks and adhesion from herni a repair 07/15/2012 open repair of left Inguinal hernia 2013 repair right shoulder subcro mial tendon tears and removal of bone spur 07/26/2014 carpal tunnel surgery 05/27/2019 right shoulder rotar cuff repair 1 rotator cuff tear repair-left 04/24/2022 PNS- 60days 05/15/23 Elbow surgery
--- OUTSIDE RECORDS SUMMARY | 2024-06-21 10:07 | XMS_ITS ---
[facility] Address [address] [place] [address] Care Team Providers Care Stencil Cutter Name Role Phone Shyla GARCIA, Chela Hassan Primary Care Provider Un available iLsette Hong Unavailable [phone] Allergies Allergen (clinical drug ingredient) Drug/Non Drug [...] (FN) Shellfish-derived Products Unknown Drug Allergy Active REASON FOR VISIT Painful nail(s) aggrevated by shoes causing difficulty standing/walking, Swelling, Skin problem(s) Medications Medication SIG (Take, Route, Frequency, Duration) Notes Start Date End Date Status LamISIL 250 MG 1 tablet Orally Once a day for 14 days 11/03/2015 Not-Taking Terbinafine HCl Not- Taking Betamethasone Dipropionate Active Ciclopirox Olamine 0.77% external Apply to effected areas twice a day for 30 days 07/25/2015 Not-Taking Ketoconazole 2 % 1 application to affected area Externally Twice a day for as needed 11/07/2016 Not-Taking Travatan Z Not-Takin g Nightsplint . . . AFO - L1930 for . Not-Taking Refresh Dry Eye Therapy Not-Taking Naftin 1 % 1 application to affected area Externally Twice a day for 30 days 11/05/2016 Not-Taking Nystatin-Triamcinolone 296206-2.1 UNIT/GM-% 1 application to affected area Externally Twice a day to affected areas on feet for 30 days 11/05/2016 Not-Taking ProAir HFA PRN Not-Takin g Doxycycline Not-Taki ng ASO Ankle/Foot Stablizing AFO As directed Wear Daily for as needed 04/28/2018 Not-Taking Desonide-Moisturizing Cream Not-Taking Ciclopirox 0.77 % 1 application to affected area Externally Twice a day to effected nails for 30 days 07/17/2021 Not-Taking Symbicort Active Refresh Active compression stockings 20-30mmhg 1 pair With zippers daily 09/09/2023 Active zzzCompression Stockings 20-30mm Hg . . . for . As needed Active zzzCompression Stockings 20-30mm Hg . . . for . Not-Taking Lisinopril 5 MG Orally Acti ve Levalbuterol HCl Act guillermo Finasteride Active Dupixent Active Social History Tobacco Use: Social History Observation Description Date Details (start date - stop date) Former Smoker NA - 04/30/1999 Tobacco Use/Smoking Question Answer Notes Are you a: former smoker When did you stop smoking? 04/30/1999 Additional Findings: Tobacco Non-User Current no n-smoker Tobacco use other than smoking: Question Answer Notes Are you an other tobacco user? No Vital Signs Height 5ft 8in in 03/10/2024 Weight 150 lbs 03/10/2024 BMI 22.8 kg/m2 03/10/2024 Encounters Encounter Location Date Provider Diagnosis [facility] [address] [place] [address] 03/10/2024 Lisette Hong Tinea unguium B35.1 ; Xerosis of skin L85.3 ; Pain in right toe(s) M79.674 and Pain in left toe(s) M79.675 Assessments Encounter Date Diagnosis (ICD Code) Assessment Notes Treatment Notes Treatment Clinical Notes Section Notes 03/10/2024 Tinea unguium (ICD-10 - B35.1) 03/10/2024 Xerosis of skin (ICD-10 - L85.3) 03/10/2024 Pain in right toe(s) (ICD-10 - M79.674) 03/10/2024 Pain in left toe(s) (ICD-10 - M79.675) Plan Of Treatment Next Appt Details Follow Up: 3 Months, Reason: Provider Name:Lisette norman, 09/07/2024 09:15:00 AM, [address] [place] [address], [id number], Procedure Notes * Category Sub-Category Detail Notes Debride Nail 6-10 Nail debridement Nail debridem ent performed extensively to reduce/remove overall nail length and girth, subungual debris, and necrotic tissue, by manual and electrical means with use of a nail nipper and/or dremel, to more viable healthy nail plate or bed tissue 6-10. Silver nitrate used for any petechial bleeding as necessary. Patient chooses , to use a topical antifungal Progress Notes * Juve GUERRA RDOB: [birth year] (78 yo M)Acc No.[id number]:03/10/2024 Progress Note Patient:?Juve GUERRA R Provider:?Lisette Hong DPM :1945???Age:78 Y???Sex:Male Alin e:03/10/2024 Address:[address] [place], [place] [id number] Pcp:Jaycob Jones Subjective: * Chief Complaints: * ???Painful nail(s) aggrevate d by shoes causing difficulty standing/walkingSwellingSkin problem(s) * HPI: ???Painful Nails:?Pt States Last PCP Visit:?Date:?02/03/2024 ???Skin problems:?Nature:?dryness , scaling.?Location:?B/L .?Course:?, improved, unresolved.? * ROS:?General/Constitutional:?Nausea?denies.?Vomiting?denies.?Hunger Thirst?denies.?Loss appetite?denies.?Chills?denies.?Fatigue?denies.?Fever?denies.?Night Sweats?denies.?Unexplained weight loss?denies.?Ophthalmologic:?Blurred vision?denies.?Red eye?denies.?HEENTM:?Dentures?admits.?Dizziness?denies.?Glasses/contacts?admits.?Retinopathy?de nies.?Blurred/double vision?denies.?TMJ?denies.?Discharge/drainage?denies.?Implants?admits.?Hard of hearing denies.?Difficulty chewing/swallowing/speaking?denies.?Nose bleeds?denies.?Sore mouth?denies.?Swollen glands?denies.?Respiratory:?On Oxygen?denies.?Pneumonia/pleurisy?denies.?Bronchitis?denies.?Emphysema?denies.?C oughing?denies.?Cough blood?denies.?Shortness of breath?denies.?Wheezing?denies.?Cardiovascular:?Pacemaker?denies.?MVP?denies.?WPW?denies.?CHF?denies.?Heart attack?denies.?Septal defect?denies.?Rapid beat?denies.?Chest pain ?denies.?Atrial Fib.?denies.?Murmur/Palpitations?denies.?Gastrointestinal:?Hemorrhoids?denies.?Stomach/Abdominal pain?denies.?Dark blood stool?denies.?Irritable bowel ?denies.?Constipation?denies.?Diarrhea?denies.?Vomiting?denies.?Hematology:?Swelling?denies.?Bruising?admits.?Bleeding problem?denies.?Genitourinary:?Blood urine?denies.?Frequent/Painfu/urination/bladder control?denies.?Kidney stones?denies.?Infection (UTI)?denies.?Nephropathy?denies.?Musculoskeletal:?Hammertoes?denies.?Bunions?denies.?Scoliosis/kyphosis?denies.?Muscle cramps / walking?denies.?Generalized aches and pains?denies.?Weakness?denies.?Integ.:?Wang?denies.?Scars?denies.?Corns/calluses?denies.?Ingrown nails?denies.?Painful nails?denies.?Rashes?denies.?Neurologic:?Difficulty sleeping?denies.?Bipolar?denies.?Brain disorder?denies.?Balance trouble?denies.?Confusion?denies.?Fainting/blackouts?denies.?Headache?denies.?Tr emors?denies.? * Medical History:? * Surgical History:?cataract l eft eye with intraocular lens implant 08/18/2000broken ankle 01/2002right kidney surger and gall bladder removal 06/2002left kidney surgery 07/2002right eye removed 02/22/2004lithotripsy 07/05/2009hernia repair 05/29/2012removal of tacks and adhesion from hernia repair 07/15/2012open repair of left Inguinal hernia 05/27/2013repair right shoulder subcromial tendon tears and removal of bone spur 07/26/2014carpal tunnel surgery 05/27/2019right shoulder rotar cuff repair 01/31/21rotator cuff tear repair-left 3PNS- 60days 05/15/23Elbow surgery * Hospitalization/Major Diagno stic Procedure:?Denies Past Hospitalization * Family History:?Mother: dece ased, diagnosed with Unspecified essential hypertension.?Father: , diagnosed with Unspecified essential hypertension, Family history of arthritis.?Spouse: .? * Social History:?Tobacco Use:?Tobacco Use/Smoking?Are you a:?former smoker ?When did you stop smoking??04/30/1999 ?Additional Findings: Tobacco Non-User?Current non-smoker ?Tobacco use other than smoking?Are you an other tobacco user??No * Medications:?TakingBetametha sone Dipropionate Dupixent Finasteride Levalbuterol HCl Lisinopril 5 MG Tablet Orally Refresh Symbicort zzzCompression Stockings 20-30mm Hg 1 pair closed toe- knee high . . . , Notes to Pharmacist: As neededcompression stockings 20-30mmhg open toed 1 pair With zippers daily Taking Betamethasone Dipropionate Taking Dupixent Taking Finasteride Taking Levalbuterol HCl Taking Lisinopril 5 MG Tablet Orally Taking Refresh Taking Symbicort Taking zzzCompression Stockings 20-30mm Hg 1 pair closed toe- knee high . . . , Notes to Pharmacist: As neededTaking compression stockings 20-30mmhg open toed 1 pair With zippers daily Not-Taking/PRNzzzCompression Stockings 20-30mm Hg 1 pair closed toe- knee high . . . Ciclopirox 0.77 % Gel 1 application to affected area Externally Twice a day to effected nails Desonide-Moisturizing Cream ASO Ankle/Foot Stablizing AFO As directed Wear Daily Doxycycline ProAir HFA , Notes to Pharmacist: PRNTravatan Z Refresh Dry Eye Therapy Nightsplint . . . . AFO - L1930 Nystatin-Triamcinolone 308896-2.1 UNIT/GM-% Cream 1 application to affected area Externally Twice a day to affected areas on feet Naftin 1 % Cream 1 application to affected area Externally Twice a day Ketoconazole 2 % Cream 1 application to affected area Externally Twice a day Ciclopirox Olamine 0.77% Cream external Apply to effected areas twice a day LamISIL 250 MG Tablet 1 tablet Orally Once a day Terbinafine HCl Medication List reviewed and reconciled with the patientNot-Taking/PRN zzzCompression Stockings 20-30mm Hg 1 pair closed toe- knee high . . . Not-Taking/PRN Ciclopirox 0.77 % Gel 1 application to affected area Externally Twice a day to effected nails Not-Taking/PRN Desonide-Moisturizing Cream Not-Taking/PRN ASO Ankle/Foot Stablizing AFO As directed Wear Daily Not-Taking/PRN Doxycycline Not-Taking/PRN ProAir HFA , Notes to Pharmacist: PRNNot-Taking/PRN Travatan Z Not-Taking/PRN Refresh Dry Eye Therapy Not-Taking/PRN Nightsplint . . . . AFO - L1930 Not-Taking/PRN Nystatin- Triamcinolone 329056-7.1 UNIT/GM-% Cream 1 application to affected area Externally Twice a day to affected areas on feet Not-Taking/PRN Naftin 1 % Cream 1 application to affected area Externally Twice a day Not-Taking/PRN Ketoconazole 2 % Cream 1 application to affected area Externally Twice a day Not-Taking/PRN Ciclopirox Olamine 0.77% Cream external Apply to effected areas twice a day Not-Taking/PRN LamISIL 250 MG Tablet 1 tablet Orally Once a day Not-Taking/PRN Terbinafine HCl Medication List reviewed and reconciled with the patient * Allergies:?Adhesive TapeTimo lol MaleateDilaudidTerbinafine: dizzinessBetadineIodineShrimp (Diagnostic)Shellfish-derived ProductsLatex: Allergyyes[Allergies Verified] Objective: * Vitals:?Ht: 5ft 8in, Wt: 150 , BMI: 22.8, Shoe size: 9-10, Ht-cm: 172.72 cm, Wt- k.04 kg. * Examination: ???Nails: ?NAILS are:?Elongated, overgrown, dystrophic, lytic, greater than 3mm thick, discolored and friable with crumbly malodorous subungual debris, with pain on palpation, 1-5 B/L.?Vascular: ?DP PULSES(B):?3/4, B/L.?PT PULSES(B):?3/4, B/L.?CAPILLARY FILL TIME:?immediate, all digits, B/L.?TROPHIC CONDITION-TEXTURE/ELASTICITY/TURGOR/HAIR GROWTH(B):?normal, B/L.?TEMPERTURE GRADIENT(C):?normal, warm to cool, proximal to distal, B/L, B/L.?PIGMENTATION:?normal, B/L.?EDEMA(C):?absent, B/L.?BETI'S SIGN:?absent, B/L , absent, B/L.?PALPABLE CORDS:?absent, B/L , absent, B/L.?General Examination: ?GENERAL APPEARANCE:?Reveals a pleasant, alert, well nourished, well- developed, well hydrated individual, who demonstrates proper attention to hygiene/body habitus, and is in no acute distress, Pt serves as own historian for office visit today.?ORIENTED:?person, place, and time.?Dermatologic: ?SKIN FINDINGS:?Skin shows sign(s) of, dryness, scaling, in a stocking fashion, no fissure(s) present, B/L.? Assessment: * Assessment: 1.?Tinea unguium - B35.1???2 .?Pain in right toe(s) - M79.674???3.?Xerosis of skin - L85.3 (Primary)???Specify :Acute problem, Uncomplicated (3),Rx Management (4)???4.?Pain in left toe(s) - M79.675??? Plan: * Treatment: * Procedures:?Debride Nail 6-10:?Nail debridement?Nail debridement performed extensively to reduce/remove overall nail length and girth, subungual debris, and necrotic tissue, by manual and electrical means with use of a nail nipper and/or dremel, to more viable healthy nail plate or bed tissue 6-10. Silver nitrate used for any petechial bleeding as necessary. Patient chooses , to use a topical antifungal.? * Procedure Codes:?91332 DEBRI DE NAIL, 6 OR MORE, Modifiers: XS * Preventive Medicine:? ??Counseling:?Discussion:?-13: Office or other outpatient visit for the evaluation and management of an established patient, which required a medically appropriate history and/or examination and LOW level of DECISION MAKING for: 1 STABLE ACUTE UNCOMPLICATED PROBLEM, 2 OR MORE MINOR PROBLEMS, OR 1 STABLE CHRONIC PROBLEM, THAT POSE(S) A LOW RISK FOR MORBIDITY/MORTALITY. The visit on the day of the encounter encompassed interpreting the data and educating the patient as to the nature of their condition, treatment options available according to their individual PMH, meds, allergies, and overall health/living conditions, as well as any potential risks or complications that may occur from a failure to adhere to, and participate in, the recommended course of therapy. The discussion included a complete verbal, and/or written explanation of the examination results, any x-rays taken, the proposed diagnosis, and outline of the treatment plan. A schedule for future care needs was also explained. The patient verbalized an understanding of the instructions at this time and agreed to be an active participant in their treatment. If the patient should think of any questions or concerns after the visit, I have encouraged the patient to call the office.?Xerosis:?The patient was counseled on the diagnosis, potential etiologies, and treatment options for their skin condition. We discussed the risks and benefits of each option from performing no treatment, to utilizing OTC topical skin creams/ointments, to utilizing prescription topical creams/ointments, to utilizing customized compounded topical medications and use of nocturnal occlusion with any/all previously detailed therapies. We discussed the advantages and disadvantages of each possible treatment and importance for adherence to all the recommended therapies for optimum success and avoid potential complications such as open sore/infection/possible hospitalization. We discussed the potential effectiveness of each topical preparation as well as each ones possible side effects and/or patient medication interactions. Patient questions re: use, dosage, successful outcomes, and application consistency were reviewed and the patient verbalized that all answers were clearly understood. , Recom Eucerin or Cerave OTC as directed twice daily.? * Follow Up:?3 Months * Images: * Sign off status: Completed true * Provider:?Lisette Hong DPM Date:? Generated for Irvin armendariz/Luciano/eTransmitting on:?06/21/2024 10:07 AM EST History and Physical Notes * HPI (History of Present Illness) Category Sub-Category Detail Notes Category Not es Painful Nails Pt States Last PCP Visit: Date:: 02/03/2024 Skin problems Nature: dryness , scaling Location: B/L Course: , improved, unresolv ed Examination Category Sub-Category Detail Notes Category Not es Dermatologic SKIN FINDINGS: Skin shows sign( s) of, dryness, scaling, in a stocking fashion, no fissure(s) present, B/L General Examination GENERAL APPEARANCE: Reveals a pleasant, alert, well nourished, well-developed, well hydrated individual, who demonstrates proper attention to hygiene/body habitus, and is in no acute distress, Pt serves as own historian for office visit today ORIENTED: person, place, and t binu Vascular DP PULSES (B): 3/4, B/L PT PULSES (B): 3/4, B/L CAPILLARY FILL TIME: immediate, all digi ts, B/L TEMPERTURE GRADIENT (C): normal, warm to cool, proximal to distal, B/L, B/L TROPHIC CONDITION-TEXTURE/ELASTICITY/TURGOR/HAIR GROWTH (B): normal, B/L EDEMA (C): absent, B/L BETI'S SIGN: absent, B/L , absent , B/L PALPABLE CORDS: absent, B/L , absent , B/L PIGMENTATION: normal, B/L Nails NAILS are: Elongated, overg rown, dystrophic, lytic, greater than 3mm thick, discolored and friable with crumbly malodorous subungual debris, with pain on palpation, 1-5 B/L
--- OUTSIDE RECORDS SUMMARY | 2024-06-21 10:08 | XMS_ITS ---
Author Organization [facility] Address [address] [place] [address] Care Team Providers Care Hospice Team Lead Name Role Phone Shyla GARCIA, Chela Hassan Primary Care Provider Un available Lisette Hong Unavailable [phone] Allergies Allergen (clinical drug ingredient) Drug/Non Drug [...] by shoes causing difficulty standing/walking, Swelling, Skin problem(s),Foot pain Medications Medication SIG (Take, Route, Frequency, Duration) Notes Start Date End Date Status Terbinafine HCl Not- Taking LamISIL 250 MG 1 tablet Orally Once a day for 14 days 11/03/2015 Not-Taking Ketoconazole 2 % 1 application to affected area Externally Twice a day for as needed 11/07/2016 Not-Taking compression stockings 20-30mmhg 1 pair With zippers daily 09/09/2023 Active Ciclopirox Olamine 0.77% external Apply to effected areas twice a day for 30 days 07/25/2015 Not-Taking Refresh Dry Eye Therapy Not-Taking Travatan Z Not-Takin g Naftin 1 % 1 application to affected area Externally Twice a day for 30 days 11/05/2016 Not-Taking Nystatin-Triamcinolone 510231-6.1 UNIT/GM-% 1 application to affected area Externally Twice a day to affected areas on feet for 30 days 11/05/2016 Not-Taking Nightsplint . . . AFO - L1930 for . Not-Taking ASO Ankle/Foot Stablizing AFO As directed Wear Daily for as needed 04/28/2018 Not-Taking ProAir HFA PRN Not-Takin g Doxycycline Not-Taki ng Desonide-Moisturizing Cream Not-Taking Ciclopirox 0.77 % 1 application to affected area Externally Twice a day to effected nails for 30 days 07/17/2021 Not-Taking Refresh Active Lisinopril 5 MG Orally Acti ve zzzCompression Stockings 20-30mm Hg . . . for . Not-Taking zzzCompression Stockings 20-30mm Hg . . . for . As needed Active Symbicort Active Levalbuterol HCl Act guillermo Finasteride Active Ammonium Lactate 12 % 1 application Externally to affected areas of dry skin to feet except for between the toes Twice a day for 30 days Active Dupixent Active Betamethasone Dipropionate Active Azelastine HCl Activ e Wixela Inhub Active Travatan Active Social History Tobacco Use: Social History Observation Description Date Details (start date - stop date) Never Smoker NA - NA Tobacco use other than smoking: Question Answer Notes Are you an other tobacco user? 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) Neuritis of left foot (G57.92) Active confirmed Vital Signs Height 5ft 8in in 06/09/2024 Weight 150 lbs 06/09/2024 BMI 22.8 kg/m2 06/09/2024 Blood pressure systolic 172 mm Hg 06/09/19 25 Blood pressure diastolic 68 mm Hg 025 Encounters Encounter Location Date Provider Diagnosis [facility] [address] [place] [address] 06/09/2024 Lisette Hong Xerosis of skin L85.3 ; Neuritis of left foot G57.92 ; Tinea unguium B35.1 ; Pain in right toe(s) M79.674 ; Pain in left toe(s) M79.675 ; Pain in left foot M79.672 and Lower extremity edema R60.0 Assessments Encounter Date Diagnosis (ICD Code) Assessment Notes Treatment Notes Treatment Clinical Notes Section Notes 06/09/2024 Xerosis of skin (ICD-10 - L85.3) 06/09/2024 Neuritis of left foot (ICD-10 - G57.92) 06/09/2024 Tinea unguium (ICD-10 - B35.1) 06/09/2024 Pain in right toe(s) (ICD-10 - M79.674) 06/09/2024 Pain in left toe(s) (ICD-10 - M79.675) 06/09/2024 Pain in left foot (ICD-10 - M79.672) 06/09/2024 Lower extremity edema (ICD-10 - R60.0) Plan Of Treatment Medication Medication Name Sig Start Date Stop Date Notes compression stockings 20-30mmhg 1 pair With zippers daily 09/09/2023 Ammonium Lactate 12 % 1 application Exte rnally to affected areas of dry skin to feet except for between the toes Twice a day for 30 days Next Appt Details Follow Up: 3 Months, Reason: Provider Name:Lisette norman, 09/07/2024 09:15:00 AM, [address] [place] [address], [phone], Procedure Notes * Category Sub-Category Detail Notes Debride Nail 6-10 Nail debridement Due to the cl inical pathology outlined in the exam findings, performance of this nail treatment is medically necessary as its management by an unskilled/untrained nonprofessional would put this patients foot and overall health at risk. Therefore, debridement to affected nail(s), as described in exam ( TA, T1, T2, T3, T4, T5, T6, T7, T8, T9, ), was performed exclusively by the physician of record to reduce/remove overall nail length, girth, thickness, subungual debris, and necrotic tissue, by manual and/or electrical means through the use of a nail nipper and/or dremel-type chili pepper grinder, to a more viable healthy nail plate or bed tissue 6-10 nails in total. Silver nitrate was used for any petechial bleeding as necessary. Definitive antifungal treatment options, both pharmaceutical and surgical, have been reviewed and discussed with the patient. The patient solely prefers the use of intermittent/as needed professional debridement services for their nail condition and understands the need for additional periodic treatments to maintain effectiveness in symptomatic relief - [id number] Progress Notes * [place] GUERRAh RDOB: [birth year] (79 yo M)Acc No.[id number]:06/09/2024 Progress Note Patient:?Juve GUERRA R Provider:?Lisette Hong DPM :1945???Age:79 Y???Sex:Male Alin e:06/09/2024 Address:[address] [place], [place] [id number] Pcp:Jaycob Jones Subjective: * Chief Complaints: * ???Painful nail(s) aggrevate d by shoes causing difficulty standing/walkingSwellingSkin problem(s)Foot pain * HPI: ???Painful Nails:?Pt States Last PCP Visit:?Date:?02/03/2024 ???Skin problems:?Nature:?dryness , scaling.?Location:?B/L?.?Duration:?a few weeks.?Course:?worse.?Treatments:?Aveno.?Foot Pain:?Nature:?burning, tingling, shooting, radiating.?Location:?Outside, Midfoot, LEFT.?Onset:?unknown.?Course:?worse.?Aggravated:?any pressure, especially toward the end of the day.?Treatments:?rest/alter normal daily activity.? * ROS:?General/Constitutional:?Nausea?denies.?Vomiting?denies.?Hunger Thirst?denies.?Loss appetite?denies.?Chills?denies.?Fatigue?denies.?Fever?denies.?Night Sweats?denies.?Unexplained weight loss?denies.?Ophthalmologic:?Blurred [...] of arthritis.?Spouse: .? * Social History:?Tobacco Use:?Tobacco use other than smoking?Are you an other tobacco user??No ?Tobacco Control (Standard)?Tobacco use:?Nonsmoker ???Miscellaneous:?Caffeine: yes, frequency:, 1 cup per day. ?Children: yes. ?Exercise: yes, walking. ?Marital status: . 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 * Medications:?TakingWixela In hub Azelastine HCl Travatan Betamethasone Dipropionate Dupixent Finasteride Levalbuterol HCl Lisinopril 5 MG Tablet Orally Refresh Symbicort zzzCompression Stockings 20-30mm Hg 1 pair closed toe- knee high . . . , Notes to Pharmacist: As neededcompression stockings 20-30mmhg open toed 1 pair With zippers daily Taking Wixela Inhub Taking Azelastine HCl Taking Travatan Taking Betamethasone Dipropionate Taking Dupixent Taking Finasteride [...] . . . AFO - L1930 Nystatin-Triamcinolone 029114-8.1 UNIT/GM-% Cream 1 application to affected area [...] . AFO - L1930 Not-Taking/PRN Nystatin- Triamcinolone 272460-4.1 UNIT/GM-% Cream 1 application to affected area [...] 150 , BMI: 22.8, Shoe size: 9-10, BP: 172/68 mm Hg, Ht- cm: 172.72 cm, Wt-k.04 kg. * Examination: ???Nails: ?NAILS are:?Elongated, overgrown, dystrophic, lytic, greater than 3mm thick, discolored and friable with crumbly malodorous subungual debris, with pain on palpation, TA, T1, T2, T3, T4, T5, T6, T7, T8, T9.?Vascular: ?DP PULSES (B):?3/4, B/L.?PT PULSES (B):?3/4, B/L.?CAPILLARY FILL TIME:?immediate, all digits, B/L.?TROPHIC CONDITION-TEXTURE/ELASTICITY/TURGOR/HAIR GROWTH (B):?normal, B/L.?TEMPERTURE GRADIENT (C):?normal, warm to cool, proximal to distal, B/L, B/L.?PIGMENTATION:?normal, B/L.?EDEMA (C):?1/4, B/L.?BETI'S SIGN:?absent, B/L , absent, B/L.?PALPABLE CORDS:?absent, B/L , absent, B/L.?General Examination: ?GENERAL APPEARANCE:?Reveals a pleasant, alert, well nourished, well- developed, well hydrated individual, who demonstrates proper attention to hygiene/body habitus, and is in no acute distress, Pt serves as own historian for office visit today.?ORIENTED:?person, place, and time.?Dermatologic: ?SKIN FINDINGS:?Skin shows sign(s) of, dryness, scaling, in a stocking fashion, no fissure(s) present, B/L?.?Neurological: ?SENSORY:?Neurological exam reveals intact sensorium, pain sensation normal, vibration sensation intact, pinprick sensation is normal in the lower extremities,, Pt relates, burning, shooting/radiating sensation, tingling, Left.?TINEL'S COMPRESSION:?Positive, Lateral sural nerve distribution, Left.?Neuroma Pain: ?PALPATION:?No interspace pain noted on palpation.?Orthopedic: ?MUSCLE STRENGTH:?5/5 all groups in a symmetrical fashion, B/L.?FOOTWEAR:?shoe gear properties exacerbate patients foot/toe deformity.? Assessment: * Assessment: 1.?Xerosis of skin - L85.3?? ?Specify :Acute problem, Uncomplicated (3),Rx Management (4)???2.?Neuritis of left foot - G57.92 (Primary)???Specify :Acute problem, Complicated w/ Multiple Tx Options(4),Dx New problem, Prognosis Uncertain (4)???3.?Tinea unguium - B35.1???4.?Pain in right toe(s) - M79.674???5.?Pain in left toe(s) - M79.675???6.?Pain in left foot - M79.672???7.?Lower extremity edema - R60.0??? Plan: * Treatment: 2.?Lower extremity edema? Refill compression stockings open toed, 20-30mmhg, 1 pair, With zippers, daily, 3.?? * Procedures:?Debride Nail 6-10:?Nail debridement?Due to the clinical pathology outlined in the exam findings, performance of this nail treatment is medically necessary as its management by an unskilled/untrained nonprofessional would put this patients foot and overall health at risk. Therefore, debridement to affected nail(s), as described in exam ( TA, T1, T2, T3, T4, T5, T6, T7, T8, T9, ), was performed exclusively by the physician of record to reduce/remove overall nail length, girth, thickness, subungual debris, and necrotic tissue, by manual and/or electrical means through the use of a nail nipper and/or dremel-type chili pepper grinder, to a more viable healthy nail plate or bed tissue 6- 10 nails in total. Silver nitrate was used for any petechial bleeding as necessary. Definitive antifungal treatment options, both pharmaceutical and surgical, have been reviewed and discussed with the patient. The patient solely prefers the use of intermittent/as needed professional debridement services for their nail condition and understands the need for additional periodic treatments to maintain effectiveness in symptomatic relief - 75219.? * Procedure Codes:?51260 DEBRI DE NAIL, 6 OR MORE, Modifiers: XS * Preventive Medicine:? ??Counseling:?Discussion:?-14: Office or other outpatient visit for the evaluation and management of an established patient, which required a medically appropriate history and/or examination and MODERATE level of DECISION MAKING for: 1 OR MORE CHRONIC PROBLEM(S) THATS WORSENING, 2 STABLE CHRONIC PROBLEMS, A NEWLY DIAGNOSED PROBLEM WITH UNCERTAIN PROGNOSIS, AN ACUTE COMPLICATED INJURY WITH MULTIPLE TREATMENT OPTIONS, OR AN ACUTE PROBLEM WITH ACCOMPANYING SYSTEMIC SYMPTOMS, THAT POSE(S) A MODERATE RISK OF MORBIDITY. THIS CONDITION MAY ALSO INCLUDE RX DRUG MANAGEMENT, OR A DECISON FOR MINOR SURGERY. The visit on the day of the [...] have encouraged the patient to call the office.?Edema:?I explained to the patient the possible etiologies for Edema, including genetic, surgery, infection, medications, heart disease, kidney disease, excess dietary salt, and various cancer treatments. We discussed the risks/benefits of the treatment options available including rest, elevation, OTC compression stockings, Rx compression stockings, Unna Boot application, diet modification to limit salt intake, and Rx segmental compression boots provided the absence of CHD in the patients medical history. The advantages and disadvantages of each option were discussed and the patients questions re: risk of infection(cellulitis), medications, diet, and the daily use of compression stockings(not to be worn at night), and consistency in these home treatment regimens for optimal success were answered to their verbally confirmed satisfaction. Given the risk for vessel clotting disease, the patient was instructed to go immediately to the ER of hospital should they experience any calf pain, SOB, or discomfort. Any changes to the patients medication regimen will be performed by the PCP or patients kidney/heart/cancer specialist. The patient has elected to receive compression stockings. Such were Rxed today with instructions for use.?Neuritis/Neuropathy:?The patient was counseled on the diagnosis, possible etiologies (including mechanical stress, injury, entrapment, chemotherapy, diabetes, vertebral disk herniation if hx), treatment options, and importance for adherence to recommendations in order to address the patients Neuritis/Neuropathy. The advantages and disadvantages re: Accomidative mechanical support/offloading, Topical vs PO analgesics including Aspercream/Voltaren gel/Lidoderm patches/Neurontin/Lyrica along with their potential side effects were discussed with the patient to their satisfaction. Also discussed the use of therapeutic injectable cortisone if needed. Surgical treatment, if considered an option, was discussed as well. If surgery is warranted, we discussed the potential successful outcomes as well as the possible complications such as failure, painful scar, permanent tingling/numbness/neuralgea/or intractable pain. Patient questions re: medication use, dosage, and possible side effects and drug interactions were reviewed and the answers to each understood. If the condition worsens, the patient was instructed to contact the office for an appointment. The patient verbally confirmed a full understanding of the above, Custom Topical pain control compound combination therapy was recommended and Rxed.?Shoe Gear Counseling:?The patient and I reviewed the types of shoes they should be wearing. My recommendation included obtaining a well-fitted shoe with a good supportive, non-foldable nor twistable sole, plenty of toe/room for the forefoot, and proper arch support. Based on todays examination, I recommended the patient look for new shoes, by having their feet professionally measured. We discussed that generally the best time of the day for a shoe fitting is the afternoon. Different shoes types and brands to best match the patients occupation and vocation were discussed. Specific brand selection will be up to the patient, their individual foot condition/deformities, and fit. The patient and I reviewed the standard new shoe break in period by wearing them for a few hours a day while checking for redness or sores as wear time is increased. The patient verbally confirmed to understanding the information discussed.?Steriod Injection:?I explained that a steroid and local anesthetic injections are administered to relieve pain and inflammation and thereby meant to improve function. I explained the possible complications including but not limited to signs/symptoms of steroid flare, infection, bruising, atrophy, discoloration of skin, change/deviation in toe position, and that additional injections may be necessary, cortisone post-injection informative educational handout was dispensed to and reviewed with the patient.?Xerosis:?The patient was counseled on the diagnosis, potential [...] verbalized that all answers were clearly understood. The patient has decided to apply Rx skin creams to their feet save the interspaces while paying special attention to the heels. Such was sent to their pharmacy at the time of visit, .? ??Screening/Special Tests:?Fall Risk?Screening:?No falls in the past year ?FALLS: Screening for Future Fall Risk?Have you had any falls with injury in the past year??No * Follow Up:?3 Months * Images: * Sign off status: Completed true * Provider:?Lisette Hong DPM Date:? Generated for Irvin armendariz/Luciano/Yonny on:?06/21/2024 10:07 AM EST History and Physical Notes * HPI (History of Present Illness) Category Sub-Category Detail Notes Category Not es Painful Nails Pt States Last PCP Visit: Date:: 02/03/2024 Skin problems Nature: dryness , scaling Location: B/L Duration: a few weeks Course: worse Treatments: Aveno Foot Pain Nature: burning, tingling, shooting, radiating Location: Outside, Midfoot, LE FT Onset: unknown Course: worse Aggravated: any pressure, especi ally toward the end of the day Treatments: rest/alter normal da michel activity Examination Category Sub-Category Detail Notes Category Not es Neuroma Pain PALPATION: No interspace pain noted on palpation Neurological SENSORY: Neurological exa m reveals intact sensorium, pain sensation normal, vibration sensation intact, pinprick sensation is normal in the lower extremities,, Pt relates, burning, shooting/radiating sensation, tingling, Left TINEL'S COMPRESSION: Positive, Lateral s ural nerve distribution, Left Dermatologic SKIN FINDINGS: Skin shows sign( s) of, dryness, scaling, in a stocking fashion, no fissure(s) present, B/L Orthopedic FOOTWEAR: shoe gear proper ties exacerbate patients foot/toe deformity MUSCLE STRENGTH: 5/5 all groups in a symmetrical fashion, B/L General Examination GENERAL APPEARANCE: Reveals a [...] CONDITION-TEXTURE/ELASTICITY/TURGOR/HAIR GROWTH (B): normal, B/L EDEMA (C): 1/4, B/L BETI'S SIGN: absent, B/L , absent , B/L PALPABLE CORDS: absent, B/L , absent , B/L PIGMENTATION: normal, B/L Nails NAILS are: Elongated, overg rown, dystrophic, lytic, greater than 3mm thick, discolored and friable with crumbly malodorous subungual debris, with pain on palpation, TA, T1, T2, T3, T4, T5, T6, T7, T8, T9
== END 2024-06-21 10:01 | disposition home or self-care (01) ==
PROVIDERS: PCP Internal Medicine; Visit Provider Orthopaedic Surgery
DX: M70.42 Prepatellar bursitis, left knee (principal)
CPT/HCPCS: 99213

== ENCOUNTER 2024-06-21 09:18 | Outpatient (REF) | payer MEDICARE, SELFPAY ==
--- NOTE | ~2024-06-21 | XR_ITS ---
EXAMINATION: XR KNEE, LEFT CLINICAL INFORMATION: M25.562 - Pain in left knee COMPARISON: None available. TECHNIQUE: Three views of the left knee. FINDINGS: No acute cortical disruption or malalignment. There is preservation of the joint spaces. No lytic or blastic lesions. Vascular calcifications. No suprapatellar bursa joint effusion. XR/XR knee LT 3V IMPRESSION: No acute fracture or dislocation. Atherosclerosis disease, peripheral. Electronically signed by: Obi Castro MD 06/22/2024 08:53 AM DAVID
== END 2024-06-21 09:19 | disposition home or self-care (01) ==
LOC: HO.HOSX 09:18
PROVIDERS: PCP Internal Medicine; Visit Provider Orthopaedic Surgery
DX: M25.562 Pain in left knee (principal); M70.42 Prepatellar bursitis, left knee
CPT/HCPCS: 73562; 99212

== ENCOUNTER → 2024-06-21 09:23 | Outpatient (BNV) | payer MEDICARE, SELFPAY | PROVIDERS: PCP Internal Medicine; Visit Provider Radiology Diagnostic Radiology | DX: I70.90 Unspecified atherosclerosis (principal) | CPT/HCPCS: 73562 ==

== ENCOUNTER 2024-07-06 11:21 | Outpatient (AMB) | payer MEDICARE, SELFPAY ==
--- NOTE | 2024-07-06 11:23 | A.OFFVIS_ITS ---
Vital Signs 07/06/24 11:24 Height 5 ft 8 in Weight 150 lb BMI 22.8 Pulse 76 Pulse Source Pulse Oximeter Pulse Oximetry (%) 98 Oxygen Delivery Method Room Air Intake Visit Reasons: follow up Intake Note: Patient presents for follow up labs done 04/28/24 Allergies Fish Containing Products Allergy (Severe, Verified 07/06/24 11:26) ANAPHYLAXIS hydromorphone [From DILAUDID] Allergy (Severe, Verified 07/06/24 11:26) CHILLS,DIAPHORESIS povidone-iodine [From BETADINE] Allergy (Severe, Verified 07/06/24 11:26) ANAPHYLAXIS timolol [TIMOLOL] Allergy (Severe, Verified 07/06/24 11:26) ANAPHYLAXIS ENVIROMENTAL Allergy (Intermediate, Uncoded 07/06/24 11:26) HAYFEVER Lamisil Allergy (Unknown, Uncoded 07/06/24 11:26) Nausea/Dizzy/Airway trouble Medication List - Last Reconciled 07/06/24 by Ree Reyes MD albuterol sulfate 2.5 mg (3 mL) continuous nebulization Q6H PRN azelaic acid 15% topical azelastine 2 sprays intranasal BID betamethasone dipropionate 0.05% topical dupilumab 200 mg subcut .q month epinephrine 0.3 mg (0.3 mL) IM ONCE PRN finasteride 5 mg PO DAILY fluticasone propion-salmeterol 250-50 mcg/dose (Wixela Inhub) 1 inh inhalation Q12H levalbuterol tartrate 45 mcg/actuation 1 inh PO Q4H PRN levocetirizine (Xyzal) 5 mg PO QPM lisinopril 5 mg PO DAILY travoprost 0.004% 1 drp ophthalmic (eye) valacyclovir mg PO PRN HPI Comments Details: 79y/o left handed male comes for follow up of tremors.He started calatrio Apr 13 2024.for his left UE. He uses it 4-5 times a day - the effect lasts 40 minutes . It is 70% or more less tremors most of the times.He used caltrio this AM at 6am He is able to use his computer and other activities He also reports discomfort in his feet when he is lying down - burning sensatiion, feels hot. He is good during daytime. but once he gets to bed the symptoms start and wakes up a few times.I tried him on ropinirole -no response. Now he uses OTC lidocaine cream and it helps. History from initial visit- He reports noticeable tremors after his cervical spinal fusion surgery about 10 years ago. The tremors are in jak UE left >right. In the past 1 year he has noticed increase in intensity of his tremors The tremors are mostly with action especially actions needing fine motor coordination. He has difficulty writing, drinking liquids without spilling etc. The intensity fluctuates . He is unclear if there are any factors that improve or worsen the tremors. No change in speech He has arthritis and has noticed increase in his neck pain.He follows up with Dr. Gutierres at [facility].He denies any new medications No exposure to neuroleptics He was trialed on primidone 50 mg helped his tremors but felt drowsy.He cannot use betablockers because of his asthma [facility] Medical History Restless legs syndrome (RLS) Rosacea Cervical dystonia Essential and other specified forms of tremor History of eye prosthesis RBBB (right bundle branch block) Mild intermittent asthma Tremor of both hands COVID-19 vaccine series completed PONV (postoperative nausea and vomiting) Alopecia Basal cell carcinoma Retinal vein occlusion of right eye Psoriasis Spinal stenosis Nephrolithiasis Inguinal hernia Essential hypertension Glaucoma Renal oncocytoma BPH (benign prostatic hyperplasia) Cervicalgia Surgical History S/P left rotator cuff repair Hx of repair of right rotator cuff History of carpal tunnel surgery of right wrist H/O: vasectomy History of cataract surgery H/O circumcision H/O enucleation of right eyeball H/O ventral hernia repair Hx of cholecystectomy H/O left inguinal hernia repair H/O lithotripsy H/O partial nephrectomy S/P cervical discectomy History of orchiectomy Family History Father CVD (cardiovascular disease) HTN (hypertension) Social History Housing: House Are you a primary animal care worker to a significant other at home: No Do you presently have visiting nurse or other home services: No Alcohol intake: never Patient Tobacco Use Status: Former Tobacco user Tobacco use type: Cigarette Years Smoked: 20 yrs e-Cigarette/Vaping Use: Never Used Second Hand Smoke Exposure: No service: No Current occupational status: retired Current occupation: left handed Cognitive needs: No Hearing needs: No Vision needs: Yes Review of Systems ENT Reports Normal hearing present Neuro Reports Normal hearing present Physical Exam Vital Signs: Last Vital Signs Pulse 76 07/06/24 11:24 Pulse Ox 98 07/06/24 11:24 Oxygen Delivery Method Room Air 07/06/24 11:24 BMI result Body Mass Index 22.8 Const General: cooperative, healthy appearing, comfortable and no acute distress Nutritional Appearance: average body habitus Orientation/consciousness: patient oriented x3 Limitations: no limitations Neck Other: severe restricted range of motion, tenderness in left lateral and semispinalis Neuro Other: right eye- prosthetic Mild amplitude postural and action tremors- L>R Poor handwriting difficulty drawing archimedes spirals No cog wheel rigidty no bradykinesia General: patient oriented x3, tone normal and moves all extremities Cranial nerves: Yes Nystagmus not present, Yes Normal facial strength present, Yes Symmetric palate elevation present and Yes Normal hearing present Cognition (Neuro): normal cognition Gait exam (Neuro): Normal gait present and Antalgic gait present Motor exam (neuro): 5/5 motor strength present throughout and Normal motor muscle tone present throughout Coordination: [id number] test normal Assessment & Plan Assessment & Plan (1) Essential and other specified forms of tremor: Code(s): G25.0 - Essential tremor; G25.2 - Other specified forms of tremor Category: Medical (2) Cervical dystonia: Code(s): G24.3 - Spasmodic torticollis Category: Medical (3) Restless legs syndrome (RLS): Code(s): G25.81 - Restless legs syndrome Category: Medical Plan Patient is not a candidate for betablockers due to his asthma and failed primidone due to side effects Stop gabapentin - dry mouth. He is interested in a nonpharmacological approach Calatrio- continue and monitor response. Zonisamide - concerned about glaucoma. Patient interested Focused US - referred to [facility] Orders: Referrals Neurosurgery Referral G25.0 - Essential tremor, G25.2 - Other specified forms of tremor Medications: Discontinued ropinirole Discontinued Reason: Doctor's Order 1-4 orally bedtime; administer 1-3 hours before bedtime 120 tabs 2RF Coding Level of Care Code Est Pt Level 4 (28251) Complex EM visit Add On G2211 Diagnoses Essential and other specified forms of tremor G25.0; G25.2 Cervical dystonia G24.3 Restless legs syndrome (RLS) G25.81
[2024-07-06 11:24] VITALS: PULSE 76; O2SAT 98; BMI 22.8
--- OUTSIDE RECORDS SUMMARY | 2024-07-06 13:51 | XMS_ITS ---
Author Organization [facility] Address [address] [place] [address] Care Team Providers Care General Counselor Name Role Phone Shyla GARCIA, Chela Hassan Primary Care Provider Un available Lisette Hong [phone] REASON FOR VISIT [facility] RX Encounters Encounter Location Date Provider Diagnosis [address] [address] 06/15/2024 Lisette Hong Plan Of Treatment Next Appt Details Provider Name:Lisette norman, 09/07/2024 09:15:00 AM, [address] [place], [address], Progress Notes * Juve EATON RDOB: [birth year] (79 yo M)Acc No.[id number]:06/15/2024 Patient:?Juve EATON :1945???Age:79 Y???Sex:Male Address:[address] [place] [address], [place], [address] * true * Date:? Generated for Printi ng/Faxing/eTransmitting on:?07/06/2024 01:51 PM EDT
--- OUTSIDE RECORDS SUMMARY | 2024-07-06 13:51 | XMS_ITS | Patient Health Record ---
Author [facility] Address [address] [place] [address] Care Team Providers Care Securities Teller Name Role Phone Shyla GARCIA, Chela Hassan Primary Care Provider Un available Lisette Hong Unavailable [phone] Allergies Allergen (clinical drug ingredient) Drug/Non Drug [...] day for 30 days 11/05/2016 Not-Taking Nystatin-Triamcinolone 229012-1.1 UNIT/GM-% 1 application to affected area Externally [...] Risk Notes Problem Mononeuropathy of lower limb (974547339) Neuritis of left foot (G57.92) Active confirmed Vital Signs Blood pressure diastolic 68 mm Hg 06/09/2024 Height 5ft 8in in 06/09/2024 Blood pressure systolic 172 mm Hg 06/09/2024 Weight 150 lbs 06/09/2024 BMI 22.8 kg/m2 06/09/2024 Encounters Encounter Location Date Provider Diagnosis [place] [address] [address] 09/09/2023 Lisette Perica Tinea unguium B35.1 ; Edema, lower extremity R60.0 ; Pain in right toe(s) M79.674 and Pain in left toe(s) M79.[address] [address] 12/09/2023 Lisette Perica Edema, lower extremity R60.0 ; Xerosis of skin L85.3 ; Tinea unguium B35.1 ; Pain in right toe(s) M79.674 and Pain in left toe(s) M79.[address] [address] 03/10/2024 Lisette Perica Tinea unguium B35.1 ; Xerosis of skin L85.3 ; Pain in right toe(s) M79.674 and Pain in left toe(s) M79.[address] [address] 06/09/2024 Lisette Perica Xerosis of skin L85.3 ; Neuritis of left foot G57.92 ; Tinea unguium B35.1 ; Pain in right toe(s) M79.674 ; Pain in left toe(s) M79.675 ; Pain in left foot M79.672 and Lower extremity edema R60.[address] [address] 06/15/2024 Lisette Perica Assessments Encounter Date Diagnosis [...] X ray : Ankle, left 3V 12/12/2015 51777-TTQHRHN NAIL, 6 OR MORE 01/09/2016 23891-RGQUVOQ NAIL, 6 OR MORE 04/09/2016 65613-FGWKWFQ NAIL, 6 OR MORE 08/06/2016 71182-KNLILMY NAIL, 6 OR MORE 11/05/2016 04107-EFIWRZO NAIL, 6 OR MORE 02/04/2017 30537-VXOLMUO NAIL, 6 OR MORE 05/06/2017 26995-ECBMMBK NAIL, 6 OR MORE 08/05/2017 60681-EPZOCDT NAIL, 6 OR MORE 11/04/2017 58218-ESFJQJS NAIL, 6 OR MORE 02/03/2018 65758-IYTNBIG NAIL, 6 OR MORE 04/28/2018 55842-FEODBXN NAIL, 6 OR MORE 07/25/2015 25666-IHITBMD NAIL, 6 OR MORE 10/31/2015 81734-Fpwz Destruction, 1-14 11/05/2016 Next Appt Details Provider Name:Lisette Ferdinand norman, 09/07/2024 09:15:00 AM, [address] [facility], [place], [address], Insurance Providers Payer Name Payer Address Payer Phone Subscriber Number Group Number Insured Name Patient Relationship to Insured Coverage Start Date Coverage End Date Medicare National Govt [employer] [address] [place] [address] [id number] Juve Eaton Self - patient is the insured [employer] Blue Shield [address] [place] [address] [phone] [id number] Juve Eaton Self - patient is the [...]
--- OUTSIDE RECORDS SUMMARY | 2024-07-06 13:52 | XMS_ITS ---
Author Organization [facility] Address [address] [place] [address] Care Team Providers Care Hooker Off Name Role Phone Shyla GARCIA, Chela Hassan Primary Care Provider Un available Lisette Hong Unavailable [phone] Allergies Allergen (clinical drug ingredient) Drug/Non Drug [...] day for 30 days 11/05/2016 Not-Taking Nystatin-Triamcinolone 832086-0.1 UNIT/GM-% 1 application to affected area Externally [...] 03/10/2024 Encounters Encounter Location Date Provider Diagnosis [facility] [address] [place] [address] 03/10/2024 Lisette Hong Tinea unguium B35.1 ; [...] Reason: Provider Name:Lisette norman, 09/07/2024 09:15:00 AM, [address] [place] [address], [address], Procedure Notes * Category Sub-Category Detail Notes [...] Juve GUERRA RDOB: [birth year] (78 yo M)Acc No.[id number]:03/10/2024 Progress Note Patient:?Juve GUERRA R Provider:?Lisette Hong DPM :1945???Age:78 Y???Sex:Male Alin e:03/10/2024 Address:[address] [place], [place] [address] Pcp:Jaycob Jones Subjective: * Chief Complaints: * [...] . . . AFO - L1930 Nystatin-Triamcinolone 240795-4.1 UNIT/GM-% Cream 1 application to affected area [...] . AFO - L1930 Not-Taking/PRN Nystatin- Triamcinolone 722681-8.1 UNIT/GM-% Cream 1 application to affected area [...] to use a topical antifungal.? * Procedure Codes:?99049 DEBRI DE NAIL, 6 OR MORE, Modifiers: [...] Hong DPM Date:? Generated for Irvin armendariz/Luciano/eTransmitting on:?07/06/2024 01:51 PM EDT History and Physical Notes * HPI (History [...]
--- OUTSIDE RECORDS SUMMARY | 2024-07-06 13:52 | XMS_ITS ---
Author Organization [facility] Address [address] [place] [address] Care Team Providers Care Chemical Operations And Training Name Role Phone Shyla GARCIA, Chela Hassan Primary Care Provider Un available Lisette Hong Unavailable [phone] Allergies Allergen (clinical drug ingredient) Drug/Non Drug [...] day for 30 days 11/05/2016 Not-Taking Nystatin-Triamcinolone 866503-2.1 UNIT/GM-% 1 application to affected area Externally [...] Risk Notes Problem Mononeuropathy of lower limb (799552096) Neuritis of left foot (G57.92) Active confirmed Vital Signs Height 5ft 8in in 06/09/2024 Weight 150 lbs 06/09/2024 BMI 22.8 kg/m2 06/09/2024 Blood pressure systolic 172 mm Hg 06/09/19 25 Blood pressure diastolic 68 mm Hg 025 Encounters Encounter Location Date Provider Diagnosis [facility] [address] [place] [address] 06/09/2024 Lisette Hong Xerosis of skin L85.3 [...] Reason: Provider Name:Lisette norman, 09/07/2024 09:15:00 AM, [address] [place] [address], [address], Procedure Notes * Category Sub-Category Detail [...] use of a nail nipper and/or dremel-type edge grinder, to a more viable healthy nail [...] to maintain effectiveness in symptomatic relief - 65367 Progress Notes * Trenton GUERRAh RDOB: [birth year] (79 yo M)Acc No.[id number]:06/09/2024 Progress Note Patient:?Juve GUERRA R Provider:?Lisette Hong DPM :1945???Age:79 Y???Sex:Male Alin e:06/09/2024 Address:[address] [place], [place] [address] Pcp:Jaycob Jones Subjective: * Chief Complaints: * [...] yes, walking. ?Marital status: . 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 * Medications:?TakingWixela In hub Azelastine HCl Travatan [...] . . . AFO - L1930 Nystatin-Triamcinolone 377503-5.1 UNIT/GM-% Cream 1 application to affected area [...] . AFO - L1930 Not-Taking/PRN Nystatin- Triamcinolone 167424-6.1 UNIT/GM-% Cream 1 application to affected area [...] use of a nail nipper and/or dremel-type edge grinder, to a more viable healthy nail [...] to maintain effectiveness in symptomatic relief - 71972.? * Procedure Codes:?38549 DEBRI DE NAIL, 6 OR MORE, Modifiers: [...] Hong DPM Date:? Generated for Irvin armendariz/Luciano/Yonny on:?07/06/2024 01:51 PM EDT History and Physical [...]
== END 2024-07-06 11:57 | disposition home or self-care (01) ==
LOC: HO.HSMS 11:22
PROVIDERS: PCP Internal Medicine; Visit Provider Psychiatry & Neurology Neurology
DX: G25.0 Essential tremor (principal); G25.2 Other specified forms of tremor; G24.3 Spasmodic torticollis; G25.81 Restless legs syndrome
CPT/HCPCS: 99214; G2211

== ENCOUNTER → 2024-07-06 11:21 | Outpatient (BNVA) | payer MEDICARE, SELFPAY | PROVIDERS: PCP Internal Medicine; Visit Provider Psychiatry & Neurology Neurology | DX: G25.0 Essential tremor (principal); G25.2 Other specified forms of tremor; G24.3 Spasmodic torticollis; G25.81 Restless legs syndrome | CPT/HCPCS: 99212 ==

== ENCOUNTER 2024-07-23 06:16 | Outpatient (REF) | payer MEDICARE, SELFPAY ==
--- OUTSIDE RECORDS SUMMARY | 2024-07-23 06:20 | XMS_ITS ---
Author Organization [facility] Address [address] [place] [address] Care Team Providers Care City Collector Name Role Phone Shyla GARCIA, Chela Hassan Primary Care Provider Un available Lisette Hong Unavailable [phone] Allergies Allergen (clinical drug ingredient) Drug/Non Drug [...] day for 30 days 11/05/2016 Not-Taking Nystatin-Triamcinolone 292173-0.1 UNIT/GM-% 1 application to affected area Externally [...] 03/10/2024 Encounters Encounter Location Date Provider Diagnosis [facility] [address] [place] [address] 03/10/2024 Lisette Hong Tinea unguium B35.1 ; [...] Reason: Provider Name:Lisette norman, 09/07/2024 09:15:00 AM, [address] [place] [address], [address], Procedure Notes * Category Sub-Category Detail Notes [...] Juve GUERRA RDOB: [birth year] (78 yo M)Acc No.[id number]:03/10/2024 Progress Note Patient:?Juve GUERRA R Provider:?Lisette Hong DPM :1945???Age:78 Y???Sex:Male Alin e:03/10/2024 Address:[address] [place], [place] [address] Pcp:Jaycob Jones Subjective: * Chief Complaints: * [...] . . . AFO - L1930 Nystatin-Triamcinolone 078149-2.1 UNIT/GM-% Cream 1 application to affected area [...] . AFO - L1930 Not-Taking/PRN Nystatin- Triamcinolone 601881-4.1 UNIT/GM-% Cream 1 application to affected area [...] to use a topical antifungal.? * Procedure Codes:?29753 DEBRI DE NAIL, 6 OR MORE, Modifiers: [...] Hong DPM Date:? Generated for Irvin armendariz/Luciano/eTransmitting on:?07/23/2024 06:20 AM EDT History and Physical Notes * HPI [...]
--- OUTSIDE RECORDS SUMMARY | 2024-07-23 06:20 | XMS_ITS | Patient Health Record ---
Author Organization [facility] Address [address] [place] [address] Care Team Providers Care Contour Stitcher Name Role Phone Shyla GARCIA, Chela Hassan Primary Care Provider Un available Lisette Hong Unavailable [phone] Allergies Allergen (clinical drug ingredient) Drug/Non Drug [...] day for 30 days 11/05/2016 Not-Taking Nystatin-Triamcinolone 535918-9.1 UNIT/GM-% 1 application to affected area Externally [...] Risk Notes Problem Mononeuropathy of lower limb (307315003) Neuritis of left foot (G57.92) Active confirmed Vital Signs Blood pressure diastolic 68 mm Hg 06/09/2024 Height 5ft 8in in 06/09/2024 Blood pressure systolic 172 mm Hg 06/09/2024 Weight 150 lbs 06/09/2024 BMI 22.8 kg/m2 06/09/2024 Encounters Encounter Location Date Provider Diagnosis [place] [address] [address] 09/09/2023 Lisette Perica Tinea unguium B35.1 ; Edema, lower extremity R60.0 ; Pain in right toe(s) M79.674 and Pain in left toe(s) M79.[address] [address] 12/09/2023 Lisette Perica Edema, lower extremity R60.0 ; Xerosis of skin L85.3 ; Tinea unguium B35.1 ; Pain in right toe(s) M79.674 and Pain in left toe(s) M79.[address] [address] 03/10/2024 Lisette Perica Tinea unguium B35.1 ; Xerosis of skin L85.3 ; Pain in right toe(s) M79.674 and Pain in left toe(s) M79.[address] [address] 06/09/2024 Lisette Perica Xerosis of skin L85.3 ; Neuritis of left foot G57.92 ; Tinea unguium B35.1 ; Pain in right toe(s) M79.674 ; Pain in left toe(s) M79.675 ; Pain in left foot M79.672 and Lower extremity edema R60.[address] [address] 06/15/2024 Lisette Perica Assessments Encounter Date Diagnosis [...] X ray : Ankle, left 3V 12/12/2015 11508-KCGPVIV NAIL, 6 OR MORE 01/09/2016 10015-QJFIHRH NAIL, 6 OR MORE 04/09/2016 81676-DLIXJNS NAIL, 6 OR MORE 08/06/2016 75684-TPKLKNP NAIL, 6 OR MORE 11/05/2016 07786-PGSHZQK NAIL, 6 OR MORE 02/04/2017 66163-WQOSKPT NAIL, 6 OR MORE 05/06/2017 79221-BGJYETX NAIL, 6 OR MORE 08/05/2017 54984-MZNNFUL NAIL, 6 OR MORE 11/04/2017 48391-KDDUDEQ NAIL, 6 OR MORE 02/03/2018 23942-ZDTCILL NAIL, 6 OR MORE 04/28/2018 92635-YJCSIBU NAIL, 6 OR MORE 07/25/2015 12824-MPTHSLX NAIL, 6 OR MORE 10/31/2015 22799-Uqvr Destruction, 1-14 11/05/2016 Next Appt Details Provider Name:Lisette Ferdinand norman, 09/07/2024 09:15:00 AM, [address] [facility], [place], [address], Insurance Providers Payer Name Payer Address Payer Phone Subscriber Number Group Number Insured Name Patient Relationship to Insured Coverage Start Date Coverage End Date Medicare National Govt [employer] [address] [place] [address] [id number] Juve Eaton Self - patient is the insured [employer] [address] [place] [address] [id number] Juve Eaton Self - patient is the [...]
--- OUTSIDE RECORDS SUMMARY | 2024-07-23 06:20 | XMS_ITS ---
Author Organization [facility] Address [address] [place] [address] Care Team Providers Care Harmonica Maker Name Role Phone Shyla GARCIA, Chela Hassan Primary Care Provider Un available Lisette Hong Unavailable [phone] Allergies Allergen (clinical drug ingredient) Drug/Non Drug [...] day for 30 days 11/05/2016 Not-Taking Nystatin-Triamcinolone 622822-7.1 UNIT/GM-% 1 application to affected area Externally [...] Risk Notes Problem Mononeuropathy of lower limb (394495303) Neuritis of left foot (G57.92) Active confirmed Vital Signs Height 5ft 8in in 06/09/2024 Weight 150 lbs 06/09/2024 BMI 22.8 kg/m2 06/09/2024 Blood pressure systolic 172 mm Hg 06/09/19 25 Blood pressure diastolic 68 mm Hg 025 Encounters Encounter Location Date Provider Diagnosis [facility] [address] [place] [address] 06/09/2024 Lisette Hong Xerosis of skin L85.3 [...] Reason: Provider Name:Lisette norman, 09/07/2024 09:15:00 AM, [address] [place] [address], [address], Procedure Notes * Category Sub-Category Detail [...] use of a nail nipper and/or dremel-type die grinder, to a more viable healthy nail [...] to maintain effectiveness in symptomatic relief - 25277 Progress Notes * Trenton GUERRAh RDOB: [birth year] (79 yo M)Acc No.[id number]:06/09/2024 Progress Note Patient:?Juve GUERRA R Provider:?Lisette Hong DPM :1945???Age:79 Y???Sex:Male Alin e:06/09/2024 Address:[address] [place], [place] [address] Pcp:Jaycob Jones Subjective: * Chief Complaints: * [...] yes, walking. ?Marital status: . 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 * Medications:?TakingWixela In hub Azelastine HCl [...] . . . AFO - L1930 Nystatin-Triamcinolone 337773-3.1 UNIT/GM-% Cream 1 application to affected area [...] . AFO - L1930 Not-Taking/PRN Nystatin- Triamcinolone 185222-6.1 UNIT/GM-% Cream 1 application to affected area [...] use of a nail nipper and/or dremel-type die grinder, to a more viable healthy nail [...] to maintain effectiveness in symptomatic relief - 01771.? * Procedure Codes:?44532 DEBRI DE NAIL, 6 OR MORE, Modifiers: [...] Hong DPM Date:? Generated for Irvin armendariz/Luciano/Yonny on:?07/23/2024 06:20 AM EDT History and Physical [...] stocking fashion, no fissure(s) present, B/L Orthopedic FOOTWEAR EVALUATION: shoe gear p roperties exacerbate patients foot/toe deformity MUSCLE STRENGTH: 5/5 [...]
[2024-07-23 10:36] LABS: Alanine Aminotransferase 21 U/L (0-40); Anion Gap 11 (12-20); Aspartate Amino Transferase 28 U/L (5-37); Blood Urea Nitrogen 21 mg/dL (9-16); Calcium 9.6 mg/dL (8.4-10.2); Carbon Dioxide 26 mmol/L (22-29); Chloride 109 mmol/L (96-108); Cholesterol 188 mg/dL (<200); Estimated Glomerular Filt Rate > 60; Glucose Fasting 98 mg/dL (60-99); HDL Cholesterol 59 mg/dL (>40); LDL Cholesterol Calculated 114 mg/dL (<100); Potassium 4.8 mmol/L (3.3-5.1); Sodium 141 mmol/L (135-145); Triglycerides 76 mg/dL (<150)
[2024-07-23 11:13] LABS: Prostate Specific Antigen 0.98 ng/mL (<0.05-4.0)
== END 2024-07-23 06:17 | disposition home or self-care (01) ==
LOC: HO.HMGCLDS 06:16
PROVIDERS: PCP Internal Medicine; Referring Provider Physician Assistant; Visit Provider Internal Medicine
DX: N40.1 Benign prostatic hyperplasia with lower urinary tract symptoms (principal); N13.8 Other obstructive and reflux uropathy; I10 Essential (primary) hypertension; L40.9 Psoriasis, unspecified; Z12.5 Encounter for screening for malignant neoplasm of prostate
CPT/HCPCS: 36415; 80048; 80061; 84153; 84450; 84460

== ENCOUNTER 2024-08-03 09:12 | Outpatient (AMB) | payer MEDICARE, SELFPAY ==
--- NOTE | 2024-08-03 09:31 | A.OFFPC_ITS ---
Vital Signs 08/03/24 09:38 Height 5 ft 8 in Weight 147 lb BMI 22.3 BP 120/70 Blood Pressure Location Lt brachial Position Sitting Respiration 16 Pulse 67 Pulse Source Pulse Oximeter Temp 97.9 F Temp Source Oral Pulse Oximetry (%) 97 Oxygen Delivery Method Room Air Intake Visit Reasons: 6m follow up labs Intake Note: Pt is here today for her 6mo. f/u labs Allergies Fish Containing Products Allergy (Severe, Verified 08/03/24 10:20) ANAPHYLAXIS hydromorphone [From DILAUDID] Allergy (Severe, Verified 08/03/24 10:20) CHILLS,DIAPHORESIS povidone-iodine [From BETADINE] Allergy (Severe, Verified 08/03/24 10:20) ANAPHYLAXIS timolol [TIMOLOL] Allergy (Severe, Verified 08/03/24 10:20) ANAPHYLAXIS ENVIROMENTAL Allergy (Intermediate, Uncoded 08/03/24 10:20) HAYFEVER Lamisil Allergy (Unknown, Uncoded 08/03/24 10:20) Nausea/Dizzy/Airway trouble Medication List - Last Reconciled 08/03/24 by Chela Mansfield MD albuterol sulfate 2.5 mg (3 mL) continuous nebulization Q6H PRN azelaic acid 15% topical azelastine 2 sprays intranasal BID betamethasone dipropionate 0.05% topical dupilumab 200 mg subcut .q month epinephrine 0.3 mg (0.3 mL) IM ONCE PRN finasteride 5 mg PO DAILY fluticasone propion-salmeterol 250-50 mcg/dose (Wixela Inhub) 1 inh inhalation Q12H levalbuterol tartrate 45 mcg/actuation 1 inh PO Q4H PRN levocetirizine (Xyzal) 5 mg PO QPM lisinopril 5 mg PO DAILY travoprost 0.004% 1 drp ophthalmic (eye) valacyclovir mg PO PRN Tobacco use date assessed: 08/03/24 Fall risk assessment: No Falls in past year Last assessed Fall Risk: 08/03/24 Dental Screening Dental Screen Date: 10/22/23 Did you have a dental visit in the last 12 months?: Yes Did you have a dental problem in the last 6 months where you did not have access to dental care?: No Was dental information given to patient?: Patient has dentist HPI 6m follow up labs HPI Details 79 year old presents male with history o f rosacea, essential tremors, Raynaud's disease, allergic rhinitis, mild intermittent asthma, psoriasis, history of glaucoma, benign prostatic hyperplasia with history of renal oncocytoma and essential hypertension , here today follow-up visit. He has been feeling well, except for woke up the other day with painful muscle spasm posterior neck. No relief with application of warm compress or arthritis screening. No history of trauma or strenuous exertion. Denies any accompanying muscle weakness, no urine or bowel incontinence, no numbness or tingling in extremities reported. [facility] Medical History Restless legs syndrome (RLS) Rosacea Cervical dystonia Essential and other specified forms of tremor History of eye prosthesis RBBB (right bundle branch block) Mild intermittent asthma Tremor of both hands COVID-19 vaccine series completed PONV (postoperative nausea and vomiting) Alopecia Basal cell carcinoma Retinal vein occlusion of right eye Psoriasis Spinal stenosis Nephrolithiasis Inguinal hernia Essential hypertension Glaucoma Renal oncocytoma BPH (benign prostatic hyperplasia) Cervicalgia Surgical History S/P left rotator cuff repair Hx of repair of right rotator cuff History of carpal tunnel surgery of right wrist H/O: vasectomy History of cataract surgery H/O circumcision H/O enucleation of right eyeball H/O ventral hernia repair Hx of cholecystectomy H/O left inguinal hernia repair H/O lithotripsy H/O partial nephrectomy S/P cervical discectomy History of orchiectomy Family History Father CVD (cardiovascular disease) HTN (hypertension) Social History Housing: House Are you a primary healthcare specialist to a significant other at home: No Do you presently have visiting nurse or other home services: No Alcohol intake: never Patient Tobacco Use Status: Former Tobacco user Tobacco use type: Cigarette Years Smoked: 20 yrs e-Cigarette/Vaping Use: Never Used Second Hand Smoke Exposure: No service: No Current occupational status: retired Current occupation: left handed Cognitive needs: No Hearing needs: No Vision needs: Yes Questionnaire PHQ-9 Over the last 2 weeks, how often have you been bothered by any of the following problems? 1. Little interest or pleasure in doing things: not at all 2. Feeling down, depressed, or hopeless: not at all 3. Trouble falling or staying asleep, or sleeping too much: not at all 4. Feeling tired or having little energy: not at all 5. Poor appetite or overeating: not at all 6. Feeling bad about yourself - or that you are a failure or have let yourself or your family down: not at all 7. Trouble concentrating on things, such as reading the newspaper or watching television: not at all 8. Moving or speaking so slowly that other people could have noticed. Or the opposite - being so fidgety or restless that you have been moving around a lot more than usual: not at all 9. Thoughts that you would be better off or of hurting yourself in some way: not at all Total score: 0 Depression Screening Interpretation: Negative Depression Screening Done: Yes 16078 - PHQ-9 Billing: Yes Source: Developed by Drs. Brandon De La Torre, Masha Conti, Bridger Corral and colleagues, with an educational ling from [employer]. Thrive Questionnaire Date Thrive assessed: 08/03/24 I am a: Patient What is your living situation today?: I have a steady place to live Within the past 12 months, did the food you bought not last and you didn't have the money to get more?: Never true Within the past 12 months, did you worry whether your food would run out before you got money to buy more?: Never true Do you have trouble paying for medicines?: No Do you have trouble getting transportation to medical appointments?: No Do you have trouble paying your heating and electricity bill?: No Do you have trouble taking care of your child, family member or friend?: No Do you have trouble with day-to-day activities such as bathing, preparing meals, shopping, managing finances, etc.?: No Are you currently unemployed and looking for a job?: No Are you interested in more education?: No Please select the resources that you would like help with: None Currently or been in a relationship where the following occur: No concerns reported THRIVE Score: 0 AUDIT C Alcohol Use Questionnaire (AUDIT-C) 1. How often do you have a drink containing alcohol?: Never Total Score: 0 LLOYD-7 AMB Questionnaire LLOYD-7 Date LLOYD - 7 assessed: 08/03/24 Feeling nervous, anxious, or on edge: 0 = Not at all Not being able to stop or control worryin = Not at all Worrying too much about different things: 0 = Not at all Trouble relaxin = Not at all Being so restless that it is hard to sit still: 0 = Not at all Becoming easily annoyed or irritable: 0 = Not at all Feeling afraid as if something awful might happen: 0 = Not at all Total LLOYD-7 score (0-4 normal; 5-9 mild; 10-14 moderate; 15-21 severe): 0 Source: Developed by Drs. Brandon De La Torre, Masha Conti, Bridger Corral and colleagues, with an educational ling from [employer]. LLOYD-7 Assessment Billing LLOYD-7 Assessment Tool: LLOYD-7 Assessment 18383 Review of Systems Const Reports no additional complaints Eyes Denies change in vision ENT Reports Normal hearing present Card Denies chest pain, Denies chest pain at rest, Denies chest pain with activity and Denies pedal edema Resp Denies cough GI Denies abdominal pain Reports no additional complaints Musc Reports as per HPI Skin/Breast Denies skin ulcer and Denies wounds Neuro Reports Normal hearing present Psych Reports no additional complaints Endo Reports no additional complaints Von/Lymph Reports no additional complaints Aller/Immun Reports no additional complaints Physical exam (Primary Care) Vital Signs: Last Vital Signs Temp 97.9 F 08/03/24 09:38 Pulse 67 08/03/24 09:38 Resp 16 08/03/24 09:38 BP 120/70 08/03/24 09:38 Pulse Ox 97 08/03/24 09:38 Oxygen Delivery Method Room Air 08/03/24 09:38 BMI result Body Mass Index 22.3 Tobacco/Smoking Status: Tobacco use Status Tobacco use date assessed 08/03/24 08/03/24 09:33 Patient Tobacco Use Status Former Tobacco user 08/03/24 09:33 Tobacco use type Cigarette 08/03/24 09:33 e-Cigarette/Vaping Use Never Used 08/03/24 09:33 PHQ-9: PHQ-9 Score PHQ-9: Total score 0 08/03/24 10:34 Depression Screening Interpretation: Negative Thrive Assessment: Date of Thrive Assessment Date Thrive assessed 08/03/24 08/03/24 09:43 Currently or been in a relationship where the following occur: No concerns reported Const Other: Alert oriented x3, ambulatory normal gait HENMT General nose exam: Normal external nose present and No nasal discharge present Mouth: Normal oral and palatal mucosa present, oropharynx normal and moist mucous membranes Neck Other: Supple with no lymphadenopathy palpated Resp Auscultation: clear to auscultation bilaterally Cardio Other: S1-S2 present regular rate and rhythm GI Palpation (GI): Soft to palpation, nontender and no guarding Auscultation: normal bowel sounds Back/Spine/Pelvis Other: Tightness noted over bilateral trapezius muscle Skin General skin exam: no rashes or lesions noted Neuro Cranial nerves: Yes Normal hearing present Extrem General: Yes full ROM, Yes no joint enlargement, Yes no pedal edema and Yes normal gait Psych Appearance: grossly normal and well kempt Mental Status: mental status grossly normal Speech and movement: Normal speech and movement present Affect: normal affect Coding Level of Care Code Est Pt Level 4 (81536) Complex EM visit Add On G2211 Diagnoses Neck Pain M54.2 Essential hypertension I10 Mild intermittent asthma without complication J45.20 Asthma complication type: uncomplicated Psoriasis L40.9 Additional Codes PHQ-9 - 37970 - PHQ-9 Billing: Yes ([id number]) LLOYD-7 Assessment Billing - LLOYD-7 Assessment Tool: LLOYD-7 Assessment 56727 ([id number]) Assessment & Plan Assessment & Plan (1) Neck Pain: Code(s): M54.2 - Cervicalgia Plan: Prescription sent for prednisone 20 mg to take once a day with food in the morning, and short course of tizanidine 4 mg to take 1 tablet at bedtime as needed for painful muscle spasms. (2) Essential hypertension: Code(s): I10 - Essential (primary) hypertension Category: Medical Plan: Blood pressure at goal of less than 130/80. Continue with current dose of lisinopril. Reinforced importance of following a low sodium diet, getting regular exercise, and lowering stress levels. (3) Mild intermittent asthma: Code(s): J45.20 - Mild intermittent asthma, uncomplicated Category: Medical Qualifiers: Asthma complication type: uncomplicated Qualified Code(s): J45.20 - Mild intermittent asthma, uncomplicated Plan: Stable and controlled on present treatment, refill prescription sent for albuterol solution (4) Psoriasis: Code(s): L40.9 - Psoriasis, unspecified Category: Medical Plan: Followed by dermatology currently on Dupixent, which has cleared up his lesions Orders: Orders Basic Metabolic Panel Fasting 01/19/25 I10 - Essential (primary) hypertension Aspartate Amino Transferase 01/19/25 I10 - Essential (primary) hypertension Lipid Panel 01/19/25 I10 - Essential (primary) hypertension Alanine Aminotransferase 01/19/25 I10 - Essential (primary) hypertension Medications: New prednisone 20 mg PO DAILY 5 tabs 0RF M54.2 - Cervicalgia tizanidine 4 mg PO BEDTIME PRN 14 tabs 0RF muscle spasticity Refilled epinephrine 0.3 mg (0.3 mL) IM ONCE PRN 2 ea 3RF anaphylaxis albuterol sulfate 2.5 mg (3 mL) continuous nebulization Q6H PRN 75 mL 2RF short ness of breath or wheezing J45.20 - Mild intermittent asthma, uncomplicated
[2024-08-03 09:38] VITALS: BP 120/70; PULSE 67; RESP 16; TEMP 36.6; O2SAT 97; BMI 22.3
--- OUTSIDE RECORDS SUMMARY | 2024-08-03 09:58 | XMS_ITS ---
Author Name [facility] Organization Unknown Problems Problem Status Onset Date Problem Type Date of Resoluti on Source Other specified forms of tremor active EncounterDiagnosisAct C CT Essential tremor active EncounterDiagnosisAct CCT Care Team Organization Name Specialty Phone Email Start Date End Da her[facility] [place] [facility] 07/28/2024
--- OUTSIDE RECORDS SUMMARY | 2024-08-03 09:58 | XMS_ITS | Clinical Summary ---
Author Organization [facility] Address [address] [place] [address] Care Team Providers Care Animal Shelter Manager Name Role Phone Unavailable Primary Care Provider Unavailabl e Encounters Date Type Department Care Team Description 07/28/[address] [facility] Neurology [address] [place] [address] Frankie Guerra MD Essential tremor (Primary Dx); Other specified forms of tremor from Last 3 Months Social History Tobacco Use Types Packs/Day Years Used Date Smoking Tobacco: Never Assessed Sex and Gender Information Value Date Recorded Sex Assigned at Not on file Gender Identity Not on file Sexual Orientation Not on file Plan of Treatment Health Maintenance Due Date Last Done Comments Hepatitis C Virus Screening 1945 DTaP/Tdap/Td Vaccines (1 - Tdap) 1966 Pneumococcal Vaccines 50+ (1 of 1 - PCV) 1997 Zoster (Shingles) Vaccine (1 of 2) 1997 RSV Vaccine 60 years and old er and Patients (1 - 1-dose 75+ series) 2022 Influenza Vaccine 11/20/2023 COVID-19 Vaccine ( - 2023-2 5 season) 2023 Hepatitis B Vaccines Aged Out No long er eligible based on patient's age to complete this topic [address] [place] [address]
== END 2024-08-03 13:05 | disposition home or self-care (01) ==
PROVIDERS: PCP Internal Medicine; Visit Provider Internal Medicine
DX: M54.2 Cervicalgia (principal); I10 Essential (primary) hypertension; J45.20 Mild intermittent asthma, uncomplicated; L40.9 Psoriasis, unspecified

== ENCOUNTER → 2024-08-03 09:12 | Outpatient (BNVA) | payer MEDICARE, SELFPAY | PROVIDERS: PCP Internal Medicine; Visit Provider Internal Medicine | DX: M54.2 Cervicalgia (principal); J45.20 Mild intermittent asthma, uncomplicated; L40.9 Psoriasis, unspecified; I10 Essential (primary) hypertension | CPT/HCPCS: 96127; 99212 ==

== ENCOUNTER → 2024-09-07 08:37 | Outpatient (RCR) | payer MEDICARE, SELFPAY ==
--- NOTE | 2020-04-20 16:28 | MHC.PT.EP ---
[facility] [place] [facility] [place] [facility] [place] Office [address] Norm[address] Vera [address] [phone] F: [phone] F: [phone] F: [phone] F: [phone] Physical Therapy Plan of Care Date of Evaluation: 04/20/20 Date of Surgery: Diagnosis: Cervicalgia Assessment: Pt is a 77 y/o retired male referred to PT for cervicalgia who presents with signs and Sx consistent with cervical pain with radiation to his R scapula resulting in decreased tolerance for reading and bench-work activities, turning his head to the R, as well as disturbed sleep secondary to decreased cervical ROM and strength, decreased posture, TTP of R medial boarder of scapula, and pain. Pt is deemed an appropriate candidate to receive skilled PT services to address his physical limitations in order to improve his functional ability. Frequency and Duration: The patient will be seen 2x/wk x 5 wks. Short Term Goals: in 1 week: initiate HEP with evidence of compliance. In 3 weeks: scapular symptom resolved. 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 In 5 weeks: symmetrical cervical rotation with non painful end ranges achieved. In 5 weeks: Pt will report no longer disturbed of sleep d/t cervical pain; initial: Treatment Plan: Modalities to reduce pain, spasms and effusion. Manual therapy to restore motion and function. Therapeutic exercise to improve strength and flexibility. Neuromuscular re-education for posture and balance. Therapeutic activities to return to functional activities of daily living. Electronically signed by: Rubens Anderson PT. Please sign and return to therapist. Thank you for your referral.
--- NOTE | 2020-05-10 15:44 | MHC.PT.DC ---
[facility] [place] Office [place] Office [place] Office [address] Felicitas Vera [address] [phone] F: [phone] F: [phone] F: [phone] F: [phone] Physical Therapy Discharge Report Diagnosis: Cervicalgia Date of Surgery: Date of Evaluation: 04/20/20 Date of Discharge: 04/30/20 Treatments to Date: 2 Cancellations to Date: 2 No Shows to Date: 0 Discharge Status: Patient Elected to Stop Recommend MD Follow-up Discharge Summary: Pt called to self DC stating his pain too bad to manage with PT and will call his MD. Electronically signed by: Rubens Anderson PT. Please sign and return to therapist. Thank you for your referral.
== END | disposition home or self-care (01) ==
LOC: HO.PTCHIC 04-20 12:56
PROVIDERS: PCP Internal Medicine; Visit Provider Internal Medicine
DX: M54.2 Cervicalgia (principal)
CPT/HCPCS: 97110; 97162

== ENCOUNTER 2024-11-08 08:54 | Outpatient (AMB) | payer MEDICARE, SELFPAY ==
--- OUTSIDE RECORDS SUMMARY | 2024-09-07 05:15 | XMS_ITS ---
Author Organization [facility] Address [address] [place] [address] Care Team Providers Care [place] Name Role Phone Shyla GARCIA, Chela Hassan Primary Care Provider Un available Lisette Hong Unavailable [phone] Dotson Encounters Encounter Location Date Provider Diagnosis [address] [address] 09/07/2024 Lisette Hong Plan Of Treatment Next Appt Details Provider Name:Lisette norman, 11/19/2024 09:15:00 AM, [address] [place] [address], [phone], Progress Notes * Juve EATON RDOB: [birth year] (79 yo M)Acc No.[id number]:09/07/2024 Progress Note Patient: Juve HERNANDEZ Provider: Catrina Hong DPM :1945 A ge:79 Y S ex:Male Date:09/07/2024 Address:[address] [place] [address], [place], [id number] Pcp:Jaycob Jones Subjective: * Chief Complaints: * [address] Dotson. * Medical History: Objective: * Vitals: Assessment: Plan: * Treatment: * Images: * The named appointment provid er may or may not be the originator of this progress note, and it is not deemed complete until electronically signed by the appointment provider. Sign off status: Pending * Provider: Catrina Hong DPM Date: 0 09/07/2024 Generated for Irvin armendariz/Luciano/Yonny on: 11/08/2024 09:05 AM EDT
[2024-11-08 08:59] VITALS: BP 140/60; PULSE 62; O2SAT 98; BMI 21.9
--- NOTE | 2024-11-08 08:59 | A.OFFVIS_ITS ---
Vital Signs 11/08/24 08:59 Height 5 ft 8 in Weight 144 lb BMI 21.9 BP 140/60 H Blood Pressure Location Rt brachial Position Sitting Pulse 62 Pulse Source Pulse Oximeter Pulse Oximetry (%) 98 Oxygen Delivery Method Room Air Intake Visit Reasons: follow up Office Clerk Routine Required: No Accompanied by: Spouse Allergies Fish Containing Products Allergy (Severe, Verified 11/08/24 09:06) ANAPHYLAXIS hydromorphone (From DILAUDID) Allergy (Severe, Verified 11/08/24 09:06) CHILLS,DIAPHORESIS povidone-iodine (From BETADINE) Allergy (Severe, Verified 11/08/24 09:06) ANAPHYLAXIS timolol (TIMOLOL) Allergy (Severe, Verified 11/08/24 09:06) ANAPHYLAXIS ENVIROMENTAL Allergy (Intermediate, Uncoded 08/03/24 10:20) HAYFEVER Lamisil Allergy (Unknown, Uncoded 08/03/24 10:20) Nausea/Dizzy/Airway trouble PFSH Medical History Restless legs syndrome (RLS) Rosacea Cervical dystonia Essential and other specified forms of tremor History of eye prosthesis RBBB (right bundle branch block) Mild intermittent asthma Tremor of both hands COVID-19 vaccine series completed PONV (postoperative nausea and vomiting) Alopecia Basal cell carcinoma Retinal vein occlusion of right eye Psoriasis Spinal stenosis Nephrolithiasis Inguinal hernia Essential hypertension Glaucoma Renal oncocytoma BPH (benign prostatic hyperplasia) Cervicalgia Surgical History S/P left rotator cuff repair Hx of repair of right rotator cuff History of carpal tunnel surgery of right wrist H/O: vasectomy History of cataract surgery H/O circumcision H/O enucleation of right eyeball H/O ventral hernia repair Hx of cholecystectomy H/O left inguinal hernia repair H/O lithotripsy H/O partial nephrectomy S/P cervical discectomy History of orchiectomy Family History Father CVD (cardiovascular disease) HTN (hypertension) Social History Housing: House Are you a primary health care facilities inspector to a significant other at home: No Do you presently have visiting nurse or other home services: No Alcohol intake: never Patient Tobacco Use Status: Former Tobacco user Tobacco use type: Cigarette Years Smoked: 20 yrs e-Cigarette/Vaping Use: Never Used Second Hand Smoke Exposure: No service: No Current occupational status: retired Current occupation: left handed Cognitive needs: No Hearing needs: No Vision needs: Yes 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
--- OUTSIDE RECORDS SUMMARY | 2024-11-08 09:05 | XMS_ITS ---
Author Name [facility] Organization Unknown Problems Problem Status Onset Date Problem Type Date of Resoluti on Source Other specified forms of tremor active EncounterDiagnosisAct C CT Essential tremor active EncounterDiagnosisAct CCT Care Team Organization Name Specialty Phone Email Start Date End Da te [facility] LAYLA TRINH Primary Care 08/03/2024 [facility] 07/28/2024
--- OUTSIDE RECORDS SUMMARY | 2024-11-08 09:05 | XMS_ITS | Clinical Summary ---
Author Organization [facility] Address [address] [place] [address] Care Team Providers Care Senior Technical Specialist Name Role Phone Chela Mansfield MD Primary Care Provider Social History Tobacco Use Types Packs/Day Years Used Date Smoking Tobacco: Never Assessed Sex and Gender Information Value Date Recorded Sex Assigned at Not on file Legal Sex Male 1:35 PM EDT Gender Identity Not on file Sexual Orientation Not on file Plan of Treatment Upcoming Encounters Date Type Department Care Team (Late st Contact Info) Description 12/14/2024 2:00 PM EDT Office Visit [facility] Neurology [address] [address] Frankie Guerra MD [address] [place] [id number] Health Maintenance Due Date Last Done Comments Hepatitis C Virus Screening 1945 DTaP/Tdap/Td Vaccines (1 - Tdap) 1966 Pneumococcal Vaccines 50+ (1 of 1 - PCV) 1997 Zoster (Shingles) Vaccine (1 of 2) 1997 RSV Vaccine 60 years and old er and Patients (1 - 1-dose 75+ series) 2022 COVID-19 Vaccine ( - 2023-2 5 season) 2023 Influenza Vaccine 11/19/2024 Hepatitis B Vaccines Aged Out No long er eligible based on patient's age to complete this topic Insurance [address] [place] [address] MEDICARE PART A & B Care Teams Senior Technical Specialist Relationship Specialty Start Date End Date Chela Mansfield MD [address] [place] [address] PCP - General Internal Medicine 08/03/24
--- NOTE | 2024-11-08 09:20 | MHC.OFFVIS ---
Vital Signs 11/08/24 08:59 Height 5 ft 8 in Weight 144 lb BMI 21.9 BP 140/60 H Blood Pressure Location Rt brachial Position Sitting Pulse 62 Pulse Source Pulse Oximeter Pulse Oximetry (%) 98 Oxygen Delivery Method Room Air Intake Visit Reasons: follow up Allergies Fish Containing Products Allergy (Severe, Verified 11/08/24 09:06) ANAPHYLAXIS hydromorphone (From DILAUDID) Allergy (Severe, Verified 11/08/24 09:06) CHILLS,DIAPHORESIS povidone-iodine (From BETADINE) Allergy (Severe, Verified 11/08/24 09:06) ANAPHYLAXIS timolol (TIMOLOL) Allergy (Severe, Verified 11/08/24 09:06) ANAPHYLAXIS ENVIROMENTAL Allergy (Intermediate, Uncoded 08/03/24 10:20) HAYFEVER Lamisil Allergy (Unknown, Uncoded 08/03/24 10:20) Nausea/Dizzy/Airway trouble HPI Comments Details: 79y/o left handed male comes for follow up of tremors he is doing good with CALATRIO. He is scheudled for initial evaluation for MRI guided USG tehrapy at [place].He started calatrio Apr 13 2024.for his left UE. He uses it 4-5 times a day - the effect lasts 40 minutes . It is 70% or more less tremors most of the times.He used caltrio this AM at 6am He is able to use his computer and other activities History from initial visit- He reports noticeable tremors after his cervical spinal fusion surgery about 10 years ago. The tremors are in jak UE left >right. In the past 1 year he has noticed increase in intensity of his tremors The tremors are mostly with action especially actions needing fine motor coordination. He has difficulty writing, drinking liquids without spilling etc. The intensity fluctuates . He is unclear if there are any factors that improve or worsen the tremors. No change in speech He has arthritis and has noticed increase in his neck pain.He follows up with Dr. Gutierres at [facility].He denies any new medications No exposure to neuroleptics He was trialed on primidone 50 mg helped his tremors but felt drowsy.He cannot use betablockers because of his asthma [facility] Medical History Restless legs syndrome (RLS) Rosacea Cervical dystonia Essential and other specified forms of tremor History of eye prosthesis RBBB (right bundle branch block) Mild intermittent asthma Tremor of both hands COVID-19 vaccine series completed PONV (postoperative nausea and vomiting) Alopecia Basal cell carcinoma Retinal vein occlusion of right eye Psoriasis Spinal stenosis Nephrolithiasis Inguinal hernia Essential hypertension Glaucoma Renal oncocytoma BPH (benign prostatic hyperplasia) Cervicalgia Surgical History S/P left rotator cuff repair Hx of repair of right rotator cuff History of carpal tunnel surgery of right wrist H/O: vasectomy History of cataract surgery H/O circumcision H/O enucleation of right eyeball H/O ventral hernia repair Hx of cholecystectomy H/O left inguinal hernia repair H/O lithotripsy H/O partial nephrectomy S/P cervical discectomy History of orchiectomy Family History Father CVD (cardiovascular disease) HTN (hypertension) Social History Housing: House Are you a primary tire care manager to a significant other at home: No Do you presently have visiting nurse or other home services: No Alcohol intake: never Patient Tobacco Use Status: Former Tobacco user Tobacco use type: Cigarette Years Smoked: 20 yrs e-Cigarette/Vaping Use: Never Used Second Hand Smoke Exposure: No service: No Current occupational status: retired Current occupation: left handed Cognitive needs: No Hearing needs: No Vision needs: Yes Review of Systems ENT Reports Normal hearing present Neuro Reports Normal hearing present Physical Exam Vital Signs: Last Vital Signs Pulse 62 11/08/24 08:59 BP 140/60 H 11/08/24 08:59 Pulse Ox 98 11/08/24 08:59 Oxygen Delivery Method Room Air 11/08/24 08:59 BMI result Body Mass Index 21.9 Const General: cooperative, healthy appearing, comfortable and no acute distress Nutritional Appearance: average body habitus Orientation/consciousness: patient oriented x3 Limitations: no limitations Neck Other: severe restricted range of motion, tenderness in left lateral and semispinalis Neuro Other: right eye- prosthetic Mild amplitude postural and action tremors- L>R Poor handwriting difficulty drawing archimedes spirals No cog wheel rigidty no bradykinesia General: patient oriented x3, tone normal and moves all extremities Cranial nerves: Yes Nystagmus not present, Yes Normal facial strength present, Yes Symmetric palate elevation present and Yes Normal hearing present Cognition (Neuro): normal cognition Gait exam (Neuro): Normal gait present and Antalgic gait present Motor exam (neuro): 5/5 motor strength present throughout and Normal motor muscle tone present throughout Coordination: [id number] test normal Assessment & Plan Assessment & Plan (1) Essential and other specified forms of tremor: Code(s): G25.0 - Essential tremor; G25.2 - Other specified forms of tremor Category: Medical (2) Cervical dystonia: Code(s): G24.3 - Spasmodic torticollis Category: Medical (3) Restless legs syndrome (RLS): Code(s): G25.81 - Restless legs syndrome Category: Medical Plan Patient is not a candidate for betablockers due to his asthma and failed primidone due to side effects Stop gabapentin - dry mouth. He is interested in a nonpharmacological approach Calatrio- continue and monitor response. Zonisamide - concerned about glaucoma. Patient interested Focused US - referred to [place] Coding Level of Care Code Est Pt Level 4 (28985) Diagnoses Essential and other specified forms of tremor G25.0; G25.2 Cervical dystonia G24.3 Restless legs syndrome (RLS) G25.81
== END 2024-11-08 09:20 | disposition home or self-care (01) ==
LOC: HO.HSMS 08:55
PROVIDERS: PCP Internal Medicine; Visit Provider Psychiatry & Neurology Neurology
DX: G25.0 Essential tremor (principal); G25.2 Other specified forms of tremor; G24.3 Spasmodic torticollis; G25.81 Restless legs syndrome
CPT/HCPCS: 99214

== ENCOUNTER → 2024-11-08 08:54 | Outpatient (BNVA) | payer MEDICARE, SELFPAY | PROVIDERS: PCP Internal Medicine; Visit Provider Psychiatry & Neurology Neurology | DX: G25.0 Essential tremor (principal); G25.2 Other specified forms of tremor; G24.3 Spasmodic torticollis; G25.81 Restless legs syndrome | CPT/HCPCS: 99212 ==

== ENCOUNTER 2025-01-24 06:02 | Outpatient (REF) | payer MEDICARE, SELFPAY ==
--- OUTSIDE RECORDS SUMMARY | 2024-09-07 05:15 | XMS_ITS ---
Author Organization [facility] Address [address] [place] [address] Care Team Providers Care Events Traffic Controller Name Role Phone Shyla GARCIA, Chela Hassan Primary Care Provider Un available Lisette Hong Unavailable [phone] Dotson Encounters Encounter Location Date Provider Diagnosis [address] [address] 09/07/2024 Lisette Hong Plan Of Treatment Next Appt Details Provider Name:Lisette norman, 03/01/2025 09:30:00 AM, [address] [place] [address], [phone], Progress Notes * Juve EATON RDOB: [birth year] (79 yo M)Acc No.[id number]:09/07/2024 Progress Note Patient: Juve HERNANDEZ Provider: Catrina Hong DPM :1945 A ge:79 Y S ex:Male Date:09/07/2024 Address:[address] [place] [address], [place], [id number] Pcp:Jaycob Jones Subjective: * Chief Complaints: * [...] 0 09/07/2024 Generated for Irvin armendariz/Luciano/Yonny on: 06:04 AM EDT
--- OUTSIDE RECORDS SUMMARY | 2025-01-24 06:04 | XMS_ITS | Clinical Summary ---
Author Organization [facility] Address [address] [place] [address] Care Team Providers Care Television Anchor Name Role Phone Chela Mansfield MD Primary Care Provider Allergies Active Allergy Reactions Criticality Noted Date Comments Fish Oil Anaphylaxis High 12/14/2024 Hydromorphone Unknown/Patient and Family Unable to Define Medium 10/10/2014 Iodine Unknown/Patient and Family Unable to Define Medium 12/14/2024 Penicillin G Unknown/Patient and Family Unable to Define Medium 12/14/2024 Povidone Iodine Anaphylaxis,Rash/Dermatitis High Terbinafine Hcl Anaphylaxis High 12/14/2024 Timolol Anaphylaxis High 12/14/2024 Medications Azelastine HCl 137 MCG/SPRAY nasal spray spray 2 sprays into each nostril twice a day 5 Active betamethasone dipropionate (DIPROSONE/MAXIVA TE) 0.05 % ointment APPLY SPARINGLY TO ECZEMA TOPICALLY TWO TIMES A DAY NEEDED 5 Active Dupixent 200 MG/1.14ML prefilled syringe 5 Active finasteride (PROSCAR) 5 MG tablet 5 Active levalbuterol (XOPENEX HFA) 45 mcg/puff inhaler USE 1 INHALATION ORALLY EVERY 4 HOURS NEEDED FOR WHEEZING. 5 Active lisinopril (PRINIVIL,ZeSTRIL ) 5 MG tablet Take 1 tablet (5 mg total) by mouth. 5 Active naproxen (NAPROSYN) 500 MG tablet 1 tablet (500 mg total) by Mouth/Oral Cavity route every 12 hours. 5 Active TobraDex 0.3-0.1 % ophthalmic ointment APPLY A 1/4 INCH TO THE LEFT EYE AT BEDTIME 5 Active Travatan Z 0.004 % ophthalmic solution INSTILL 1 DROP INTO THE LEFT EYE AT BEDTIME 5 Active Active Problems Problem Noted Date Diagnosed Date Essential tremor 12/14/2024 Asteatosis cutis 06/02/2022 Herpesviral vesicular dermatitis 05/31/2022 Actinic keratosis 06/28/2020 Disorder of the skin and subcutaneous tissue, un specified 06/28/2020 Other rosacea 06/28/2020 Epidermal cyst 01/11/2020 Melanocytic nevi, unspecified 01/11/2020 Other nail disorders 08/02/2019 Arthritis 01/28/2019 Asthma 01/28/2019 Finding of above normal blood pressure 9 Hearing loss 01/15/2019 Basal cell carcinoma (BCC) of skin of ear 2017 Neoplasm of uncertain behavior of skin 8 Pruritus 10/02/2017 Onychomycosis due to dermatophyte 12/29/2015 Atopic dermatitis 05/12/2015 Inflamed seborrheic keratosis 04/28/2015 Other specified health status 03/07/2015 Personal history of other drug therapy 5 Encounters Date Type Department Care Team Description 12/15/2024 Telephone [facility] Neurosurgery [address] [place] [phone] Janelle Grande RN 12/14/2024 2:00 PM EDT Office Visit [facility] Neurology [address] [place] [phone] Frankie Guerra MD Essential tremor (Primary Dx) 12/14/2024 Travel from Last 3 Months Family History Medical History Relation Name Comments Cancer Sister Relation Name Status Comments Brother Father Mother Sister Social History Tobacco Use Types Packs/Day Years Used Date Smoking Tobacco: Never Smokeless Tobacco: Never Tobacco Cessation:Counseling Given: Not Answered Alcohol Use Standard Drinks/Week Comments Not Currently 0 (1 standard drink = 0.6 oz pur e alcohol) Sex and Gender Information Value Date Recorded Sex Assigned at Male 12/14/2024 1:36 PM EDT Legal Sex Male 1:35 PM EDT Gender Identity Male 12/14/2024 1:36 PM EDT Sexual Orientation Heterosexual (straight) 12/14 1:36 PM EDT Last Filed Vital Signs Vital Sign Reading Time Taken Comments Blood Pressure 147/72 12/14/2024 1:48 PM EDT Pulse 65 12/14/2024 1:48 PM EDT Temperature - - Respiratory Rate - - Oxygen Saturation - - Inhaled Oxygen Concentration - - Weight 64.4 kg (142 lb) 12/14/2024 1:48 PM EDT Height 172.7 cm (5' 8 ) 12/14/2024 1:48 PM EDT Body Mass Index 21.59 12/14/2024 1:48 PM EDT Plan of Treatment Upcoming Encounters Date Type Department Care Team (Late st Contact Info) Description 02/07/2025 12:30 PM EDT Appointment [facility] Radiology [facility] [address] [place] [phone] Frankie Guerra MD [address] [address] 02/07/2025 1:00 PM EDT Appointment [facility] Imaging [address] [phone] Frankie Guerra MD [address] [place] [address] 02/07/2025 2:00 PM EDT Procedure visit [facility] Neurosurgery [place] [address] [phone] Solange Vincent PAEboniC 35 [facility] [address] [place] [address] 02/10/2025 1:00 PM EDT Consult [facility] [address] [place] [phone] Delbert Perdue MD [address] [facility] [address] [place], [place] [phone] 02/10/2025 2:30 PM EDT Evaluation [facility]- [address] [phone] Frankie Guerra MD [address] [place] [address] 6 [place] [address] Jaz Medina, PT [address] [place], [place] [phone] 06/21/2025 1:00 PM EST Office Visit [facility] Neurology [address] [place] [phone] Rocio Acosta PA-C [address] [place] [address] 6 [place], [place] [address] Health Maintenance Due Date Last Done Comments Advance Care Planning 1945 Hepatitis C Virus Screening 1945 COVID-19 Vaccine (#1) 1952 DTaP/Tdap/Td Vaccines (1 - Tdap) 1966 Pneumococcal Vaccines 50+ (1 of 2 - PCV) 1966 Zoster (Shingles) Vaccine (1 of 2) 1966 RSV Vaccine 60 years and old er and Patients (1 - 1-dose 75+ series) 2022 Influenza Vaccine 11/19/2024 Hepatitis B Vaccines Aged Out No long er eligible based on patient's age to complete this topic Insurance [address] [place] [address] MEDICARE PART A & B [facility] Care Teams Television Anchor Relationship Specialty Start Date End Date Chela Mansfield MD [address] [place], [place] [phone] PCP - General Internal Medicine 08/03/24
--- OUTSIDE RECORDS SUMMARY | 2025-01-24 06:04 | XMS_ITS | Patient Health Record ---
[facility] Address [address] [place] [address] Care Team Providers Care Rear Admiral Name Role Phone Shyla GARCIA, Chela Hassan Primary Care Provider Un available Lisette Hong Unavailable [phone] Allergies Allergen (clinical drug ingredient) Drug/Non Drug [...] Duration) Notes Start Date End Date Status zzzCompression Stockings 20-30mm Hg . . .; Duration: . Not-Takin g Symbicort Not-Taking compression stockings 20-30mmhg 1 pair With zippers daily 09/09/2023 Active Ammonium Lactate 12 % 1 application Externally to affected areas of dry skin to feet except for between the toes Twice a day; Duration: 30 days Active zzzCompression Stockings 20-30mm Hg . . .; Duration: . As needed Active Refresh Active Lisinopril 5 MG Orally Acti ve Levalbuterol HCl Act guillermo Finasteride Active Terbinafine HCl Not- Taking Dupixent Active LamISIL 250 MG 1 tablet Orally Once a day; Duration: 14 days 11/03/2015 Not-Taking Ciclopirox Olamine 0.77% external Apply to effected areas twice a day; Duration: 30 days 07/25/2015 Not-Taking Ketoconazole 2 % 1 application to affected area Externally Twice a day; Duration: as needed 11/07/2016 Not-Taking Betamethasone Dipropionate Active Travatan Active Azelastine HCl Activ e Naftin 1 % 1 application to affected area Externally Twice a day; Duration: 30 days 11/05/2016 Not-Taking Wixela Inhub Active Nystatin-Triamcinolone 825453-8.1 UNIT/GM-% 1 application to affected area Externally Twice a day to affected areas on feet; Duration: 30 days 11/05/2016 Not-Taking Nightsplint . . . AFO - L1930; Duration: . Not-Taking Refresh Dry Eye Therapy Not-Taking Travatan Z Active ProAir HFA PRN Not-Takin g Doxycycline Not-Taki ng ASO Ankle/Foot Stablizing AFO As directed Wear Daily; Duration: as needed 04/28/2018 Not-Taking Desonide-Moisturizing Cream Not-Taking Ciclopirox 0.77 % 1 application to affected area Externally Twice a day to effected nails; Duration: 30 days 07/17/2021 Not-Taking Immunizations Vaccine Route Administration Date Status Comme nts Influenza Unknown 12/21/2023 Administered COVID-19 Pfizer BioNTech Vaccine Unknown 01/16/2021 Administered [...] (Standard) Question Answer Notes Tobacco use: Nonsmoker AUDIT-C (Standard) Question Answer Notes Did you have a drink containing alcohol in the p ast year? No Points 0 Interpretation Negative Problems Problem Type SNOMED Code ICD Code Onset Dates Problem Status W/U Status Risk Notes Problem Mononeuropathy of lower limb (841349694) Neuritis of left foot (G57.92) Active confirmed Vital Signs Blood pressure diastolic 70 mm Hg 11/19/2024 Height 5ft 8in in 11/19/2024 Blood pressure systolic 172 mm Hg 11/19/2024 Weight 150 lbs 11/19/2024 BMI 22.8 kg/m2 11/19/2024 Encounters Encounter Location Date Provider Diagnosis [address] [phone] 03/10/2024 Lisette Perica Tinea unguium B35.1 ; Xerosis of skin L85.3 ; Pain in right toe(s) M79.674 and Pain in left toe(s) M79.[address] [address] 06/09/2024 Lisette Perica Xerosis of skin L85. 3 ; Neuritis of left foot G57.92 ; Tinea unguium B35.1 ; Pain in right toe(s) M79.674 ; Pain in left toe(s) M79.675 ; Pain in left foot M79.672 and Lower extremity edema R60.[address] [phone] 11/19/2024 Lisette Perica Pain in right toe(s) M79.674 ; Onychomycosis B35.1 and Pain in left toe(s) M79.[address] [phone] 06/15/2024 Lisette Perica Assessments Encounter Date Diagnosis (ICD Code) Assessment Notes Treatment Notes Treatment Clinical Notes Section Notes 03/10/2024 Tinea unguium (ICD-10 - B35.1) 06/09/2024 Xerosis of skin (ICD-10 - L85.3) 06/09/2024 Neuritis of left foot (ICD-10 - G57.92) 11/19/2024 Pain in right toe(s) (ICD-10 - M79.674) 11/19/2024 Onychomycosis (ICD-10 - B35.1) 11/19/2024 Pain in left toe(s) (ICD-10 - M79.675) 03/10/2024 Pain in right toe(s) (ICD-10 - M79.674) 03/10/2024 Xerosis of skin (ICD-10 - L85.3) 06/09/2024 Tinea unguium (ICD-10 - B35.1) 06/09/2024 Pain in right toe(s) (ICD-10 - M79.674) 03/10/2024 Pain in left toe(s) (ICD-10 - M79.675) 06/09/2024 Pain in left toe(s) (ICD-10 - M79.675) 06/09/2024 Pain in left foot (ICD-10 - M79.672) 06/09/2024 Lower extremity edema (ICD-10 - R60.0) Plan Of Treatment Pending Test Test Name Order Date X ray : Ankle, left 3V 12/12/2015 [id number] NAIL, 6 OR MORE 01/09/2016 [id number] NAIL, 6 OR MORE 04/09/2016 [id number] NAIL, 6 OR MORE 08/06/2016 [id number] NAIL, 6 OR MORE 11/05/2016 [id number] NAIL, 6 OR MORE 02/04/2017 [id number] NAIL, 6 OR MORE 05/06/2017 [id number] NAIL, 6 OR MORE 08/05/2017 [id number] NAIL, 6 OR MORE 11/04/2017 [id number] NAIL, 6 OR MORE 02/03/2018 [id number] NAIL, 6 OR MORE 04/28/2018 [id number] NAIL, 6 OR MORE 07/25/2015 [id number] NAIL, 6 OR MORE 10/31/2015 [id number] Destruction, 1-14 11/05/2016 Next Appt Details Provider Name:Lisette norman, 03/01/2025 09:30:00 AM, [address] [facility], [place], [phone], Insurance Providers Payer Name Payer Address Payer Phone Subscriber Number Group Number Insured Name Patient Relationship to Insured Coverage Start Date Coverage End Date Medicare [facility] [address] [place] [address] [id number] Juve Eaton Self - patient is the insured [employer] [address] [place] [address] [id number] Juve Eaton Self - patient is the [...]
[2025-01-24 10:53] LABS: Alanine Aminotransferase 19 U/L (0-40); Anion Gap 11 (12-20); Aspartate Amino Transferase 27 U/L (5-37); Blood Urea Nitrogen 18 mg/dL (9-16); Calcium 9.5 mg/dL (8.4-10.2); Carbon Dioxide 24 mmol/L (22-29); Chloride 110 mmol/L (96-108); Cholesterol 180 mg/dL (<200); Estimated Glomerular Filt Rate > 60; HDL Cholesterol 62 mg/dL (>40); Potassium 4.5 mmol/L (3.3-5.1); Sodium 140 mmol/L (135-145); Triglycerides 66 mg/dL (<150)
== END 2025-01-24 06:03 | disposition home or self-care (01) ==
LOC: HO.HMGCLDS 06:02
PROVIDERS: PCP Internal Medicine; Visit Provider Internal Medicine
DX: I10 Essential (primary) hypertension (principal)
CPT/HCPCS: 36415; 80048; 80061; 84450; 84460

== ENCOUNTER 2025-02-03 09:22 | Outpatient (AMB) | payer MEDICARE, SELFPAY ==
--- OUTSIDE RECORDS SUMMARY | 2024-09-07 05:15 | XMS_ITS ---
Author Organization [facility] Address [address] [place] [address] Care Team Providers Care Mushroom Spawn Maker Name Role Phone Shyla GARCIA, Chela Hassan Primary Care Provider Un available Lisette Hong Unavailable [phone] Dotson Encounters Encounter Location Date Provider Diagnosis [address] [address] 09/07/2024 Lisette Hong Plan Of Treatment Next Appt Details Provider Name:Lisette norman, 03/01/2025 09:30:00 AM, [address] [place] [address], [phone], Progress Notes * Juve EATON RDOB: [birth year] (79 yo M)Acc No.[id number]:09/07/2024 Progress Note Patient: Juve HERNANDEZ Provider: Catrina Hong DPM :1945 A ge:79 Y S ex:Male Date:09/07/2024 Address:[address] [place] [address], [place], [id number] Pcp:Jaycob Jones Subjective: * Chief Complaints: * [...] 0 09/07/2024 Generated for Irvin armendariz/Luciano/Yonny on: 1 10:39 AM EDT
[2025-02-03 09:34] VITALS: BP 122/60; PULSE 71; RESP 16; TEMP 36.6; O2SAT 98; BMI 22.7
--- NOTE | 2025-02-03 09:34 | A.OFFVIS_ITS ---
Intake Vital Signs 02/03/25 09:34 Height 5 ft 8 in Weight 149 lb BMI 22.7 BP 122/60 Blood Pressure Location Rt brachial Position Sitting Respiration 16 Pulse 71 Pulse Source Pulse Oximeter Temp 97.8 F Temp Source Oral Pulse Oximetry (%) 98 Oxygen Delivery Method Room Air Intake Visit Reasons: AWV G0439 Intake Note: Pt is here today for his AWV Allergies Fish Containing Products Allergy (Severe, Verified 02/03/25 10:25) ANAPHYLAXIS hydromorphone (From DILAUDID) Allergy (Severe, Verified 02/03/25 10:25) CHILLS,DIAPHORESIS povidone-iodine (From BETADINE) Allergy (Severe, Verified 02/03/25 10:25) ANAPHYLAXIS timolol (TIMOLOL) Allergy (Severe, Verified 02/03/25 10:25) ANAPHYLAXIS ENVIROMENTAL Allergy (Intermediate, Uncoded 02/03/25 10:25) HAYFEVER Lamisil Allergy (Unknown, Uncoded 02/03/25 10:25) Nausea/Dizzy/Airway trouble Medication List - Last Reconciled 02/03/25 by Chela Mansfield MD albuterol sulfate 2.5 mg (3 mL) continuous nebulization Q6H PRN azelaic acid 15% topical azelastine 2 sprays intranasal BID betamethasone dipropionate 0.05% topical dupilumab 200 mg subcut .q month dupilumab (Dupixent) 200 mg subcut Q2W epinephrine 0.3 mg (0.3 mL) IM ONCE PRN finasteride 5 mg PO DAILY fluticasone propion-salmeterol 250-50 mcg/dose (Wixela Inhub) 1 inh inhalation Q12H levalbuterol tartrate 45 mcg/actuation 1 inh PO Q4H PRN levocetirizine (Xyzal) 5 mg PO QPM lisinopril 5 mg PO DAILY naproxen 500 mg PO BID travoprost 0.004% 1 drp ophthalmic (eye) valacyclovir mg PO PRN HPI AWV G0439 HPI Details SWV ? 79 y ear old presents m kathe with past medi huy history of ros acea, essential tr emors, Raynaud's d isease, allergic r hinitis, mild inte rmittent asthma, p soriasis, history of glaucoma, benig n prostatic hyperp lasia with history of renal oncocyto ma and essential h ypertension , here today for his ? A nnual Wellness Vi sit, subsequent vi sit.? He had a normal scree damian colonoscopy d one by Dr. Murillo i n 2009 due for rec heck in 2019 but p atient does not wa nt to get further colonoscopy proced ures or Cologuard test. Follo wed by Dr. 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 He has his tory of benign pro static hyperplasia and renal oncocyt gordo s/p right part ial nephrectomy, f ollowed by Dr. Yehuda khan. He sees Dr. Kay for his psoriasis. He had a lipid pa james screening and fasting blood suga r screening 025 with normal re sults. He is up-to-date with h is yearly flu shot and RSV, 1 pneumo coccal vaccine but refused to anothe r pneumonia vaccin es or the shingles vaccination, had his COVID booster 12/30/2023. ? Medical / Social History Re viewed? Past Medic al History ?Yes . ? [place] of Care / Care Team list upd ated ?Yes . ? Surgica l/Hospitalization History ?Yes . ? Cur rent Medications (including OTC and supplements) ?Yes . ? Family History ? Yes . ? Tobacco Con trol form ?Yes . ? AU DIT-C (Alcohol use ) form ?Yes . ? Illi cit drug use in So cial History ?Yes . ? Current diagnosi s of depression? ?No ? Appropriate PHQ 2/PHQ9 completed ?Yes . ? Data entered by ?[facility] and reviewed by provider ? Fall Risk ? Fall History? Have you had any f alls with injury in the past year? ?No . ? Have you had two or more falls in the past year? ?No . ? Fall Risk As sessment: ?No fal ls in the past yea r . ? HRA f illed out by the patient, reviewed by Provider and sc anned. ? SWV ? [place] n[place]? [place] ? .nega tive ? Tandem walk ?Ye s . ? Walk and Turn ?Y es . ? Rise from sit t o stand ?Yes . ?Vision? Correcti ve lens ?Yes, art ificial eye OD ? Vision screen ? Up-to-d ate, has an appoin tment Dr Dominguze ?Hearing? Whispe r test ?pass, wea rs hearing aids . ?Written P alla?Completed. See Patient Document s.? [facility] Medical History (Updated 02/10/25 @ 23:43 by Chela Mansfield MD) Restless legs syndrome (RLS) Rosacea Cervical dystonia Essential and other specified forms of tremor History of eye prosthesis RBBB (right bundle branch block) Mild intermittent asthma Tremor of both hands COVID-19 vaccine series completed PONV (postoperative nausea and vomiting) Alopecia Basal cell carcinoma Retinal vein occlusion of right eye Psoriasis Spinal stenosis Nephrolithiasis Inguinal hernia Essential hypertension Glaucoma Renal oncocytoma BPH (benign prostatic hyperplasia) Cervicalgia Surgical History S/P left rotator cuff repair Hx of repair of right rotator cuff History of carpal tunnel surgery of right wrist H/O: vasectomy History of cataract surgery H/O circumcision H/O enucleation of right eyeball H/O ventral hernia repair Hx of cholecystectomy H/O left inguinal hernia repair H/O lithotripsy H/O partial nephrectomy S/P cervical discectomy History of orchiectomy Family History Father CVD (cardiovascular disease) HTN (hypertension) Social History Housing: House Are you a primary intensive care anaesthetist to a significant other at home: No Do you presently have visiting nurse or other home services: No Alcohol intake: never Patient Tobacco Use Status: Former Tobacco user Tobacco use type: Cigarette Years Smoked: 20 yrs e-Cigarette/Vaping Use: Never Used Second Hand Smoke Exposure: No service: No Current occupational status: retired Current occupation: left handed Cognitive needs: No Hearing needs: No Vision needs: Yes Questionnaire Medicare Wellness Checkup What [age] What gender do you identify with?: male During the past 4 weeks, how much have you been bothered by emotional problems such as feeling anxious, depressed, irritable, sad or downhearted, and blue?: slightly During the past 4 weeks, has your physical & emotional health limited your social activities with family, friends, neighbors, or groups?: slightly During the past 4 weeks, how much bodily pain have you generally had?: mild pain During the past 4 weeks, was someone available to help you if you needed & wanted help?: yes, as much as I wanted During the past 4 weeks, what was the hardest physical activity you could do for at least 2 minutes?: heavy Can you get to places out of walking distance without help? (For eg., can you travel alone on buses, taxis or drive your car?): Yes Can you go shopping for groceries or clothes without someone's help?: Yes Can you prepare your own meals?: Yes Can you do your housework without help?: Yes Because of any health problems, do you need the help of another person with your personal care needs such as eating, bathing, dressing or getting around the house?: No Can you handle your own money without help?: Yes During the past 4 weeks, how would you rate your health in general?: good During the past 4 weeks how have things been going for you?: pretty well Are you having difficulties driving your car?: no Do you always fasten your seat belt when you are in a car?: yes, usually During past 4 weeks, have you been bothered by the following: never: Falling or dizzy when standing up, Trouble eating well? and Problems using the telephone? and seldom: Teeth or denture problems? and Tiredness or fatigue? Have you fallen 2 or more times in the past year?: No Are you afraid of falling?: No Are you a smoker?: no During the past 4 weeks, how many drinks of wine, beer, or other alcoholic beverages did you have?: no alcohol at all Do you exercise for about 20 minutes 3 or more times a week?: yes, most of the time Have you been given information to help with the following?: yes: Hazards in your house that might hurt you? and yes: Keeping track of your medications? How often do you have trouble taking medicines the way you have been told to take them?: I always take medicine as prescribed How confident are you that you can control & manage most of your health problems?: very confident What is your race?: White Mini Mental State Exam (MMSE) Orientation What is the (year) (season) (date) (day) (month)?: year (2024), season (Fall), date (02/03/25), day () and month (January) Where are we (state) (county) (town or city) (hospital) (floor)?: state ([facility]), [facility] ([place]), town or city ([place]) and hospital/clinic ([facility]) Score Score: 9 Activity of Daily Living Bathing - sponge bath, tub bath or shower: receives no assistance (gets in/out by self, if usual bathing means Toileting - going to the 'toilet room' for urine/bowel elimination & cleaning self/arranging clothes: goes to toilet room, cleans self, arranges clothes without help Transfer: moves in & out of bed and chair without help (may use support object) Continence: controls urination/bowel movements completely by self Feeding: feeds self without help Total Score: 0 Information obtained from: patient Using telephone: independent Traveling: independent Shopping: independent Preparing meals: independent Housework: independent Taking medicine: independent Managing money: independent PHQ-9 Over the last 2 weeks, how often have you been bothered by any of the following problems? 1. Little interest or pleasure in doing things: not at all 2. Feeling down, depressed, or hopeless: not at all 3. Trouble falling or staying asleep, or sleeping too much: several days 4. Feeling tired or having little energy: several days 5. Poor appetite or overeating: not at all 6. Feeling bad about yourself - or that you are a failure or have let yourself or your family down: not at all 7. Trouble concentrating on things, such as reading the newspaper or watching television: not at all 8. Moving or speaking so slowly that other people could have noticed. Or the opposite - being so fidgety or restless that you have been moving around a lot more than usual: not at all 9. Thoughts that you would be better off or of hurting yourself in some way: not at all Total score: 2 Depression Screening Interpretation: Negative Depression Screening Done: Yes 07638 - PHQ-9 Billing: Yes Source: Developed by Drs. Brandon De La Torre, Masha Conti, Bridger Corral and colleagues, with an educational ling from [employer]. Physical Exam Vital Signs: Last Vital Signs Temp 97.8 F 02/03/25 09:34 Pulse 71 02/03/25 09:34 Resp 16 02/03/25 09:34 BP 122/60 02/03/25 09:34 Pulse Ox 98 02/03/25 09:34 Oxygen Delivery Method Room Air 02/03/25 09:34 BMI result Body Mass Index 22.7 Assessment & Plan Assessment & Plan (1) Encounter for subsequent annual wellness visit (AWV) in Medicare patient: Code(s): Z00.00 - Encounter for general adult medical examination without abnormal findings Plan: Medical wellness checklist reviewed, , declines further colon cancer screening, up-to-date with his flu vaccine RSV vaccine but declines getting further COVID boosters, pneumococcal vaccination or shingles vaccine (2) Essential hypertension: Code(s): I10 - Essential (primary) hypertension Plan: Blood pressure stable and controlled on present treatment lisinopril 5 mg daily (3) Glaucoma: Code(s): H40.9 - Unspecified glaucoma Qualifiers: Glaucoma type: unspecified Laterality: left Qualified Code(s): H40.9 - Unspecified glaucoma Plan: Up-to-date with his eye exam currently on travoprost (4) BPH (benign prostatic hyperplasia): Code(s): N40.0 - Benign prostatic hyperplasia without lower urinary tract symptoms Plan: Followed by Urology currently on finasteride 5 mg daily (5) Renal oncocytoma: Comment: followed by urology Code(s): D30.00 - Benign neoplasm of unspecified kidney Plan: Followed by Urology (6) Mild intermittent asthma: Code(s): J45.20 - Mild intermittent asthma, uncomplicated Qualifiers: Asthma complication type: uncomplicated Qualified Code(s): J45.20 - Mild intermittent asthma, uncomplicated Plan: Takes albuterol as needed and currently on Wixela (7) Psoriasis: Code(s): L40.9 - Psoriasis, unspecified Plan: Currently on Dupixent Orders: Orders Alanine Aminotransferase 02/03/25 G25.0 - Essential tremor, G25.2 - Other specified forms of tremor, I10 - Essential (primary) hypertension, I65.23 - Occlusion and stenosis of bilateral carotid arteries, J45.20 - Mild intermittent asthma, uncomplicated, L40.9 - Psoriasis, unspecified, Z13.1 - Encounter for screening for diabetes mellitus Aspartate Amino Transferase 02/03/25 G25.0 - Essential tremor, G25.2 - Other specified forms of tremor, I10 - Essential (primary) hypertension, I65.23 - Occlusion and stenosis of bilateral carotid arteries, J45.20 - Mild intermittent asthma, uncomplicated, L40.9 - Psoriasis, unspecified, Z13.1 - Encounter for screening for diabetes mellitus Basic Metabolic Panel Fasting 10/16/25 G25.0 - Essential tremor, G25.2 - Other specified forms of tremor, I10 - Essential (primary) hypertension, I65.23 - Occlusion and stenosis of bilateral carotid arteries, J45.20 - Mild intermittent asthma, uncomplicated, L40.9 - Psoriasis, unspecified, Z13.1 - Encounter for scr eening for diabetes mellitus Vitamin D 25-OH Total 02/03/25 G25.0 - Essential tremor, G25.2 - Other specified forms of tremor, I10 - Essential (primary) hypertension, I65.23 - Occlusion and stenosis of bilateral carotid arteries, J45.20 - Mild intermittent asthma, uncomplicated, L40.9 - Psoriasis, unspecified, Z13.1 - Encounter for screening for diabetes mellitus Testosterone, Free/Total 6 Months R53.83 - Other fatigue Lipid Panel 02/03/25 G25.0 - Essential tremor, G25.2 - Other specified forms of tremor, I10 - Essential (primary) hypertension, I65.23 - Occlusion and stenosis of bilateral carotid arteries, J45.20 - Mild intermittent asthma, uncomplicated, L40.9 - Psoriasis, unspecified, Z13.1 - Encounter for screening for diabetes mellitus Quality Reporting (2019) Depression/Bipolar (159/160/161/177) PHQ-9: Total score: 2 Coding Level of Care Code Medicare Subsequent (G0439) Diagnoses Encounter for subsequent annual wellness visit (AWV) in Medicare patient Z00.00 Essential hypertension I10 Glaucoma of left eye, unspecified glaucoma type H40.9 Glaucoma type: unspecified Laterality: left BPH (benign prostatic hyperplasia) N40.0 Renal oncocytoma D30.00 Mild intermittent asthma without complication J45.20 Asthma complication type: uncomplicated Psoriasis L40.9 Additional Codes PHQ-9 - 39873 - PHQ-9 Billing: Yes ([id number])
--- OUTSIDE RECORDS SUMMARY | 2025-02-03 10:39 | XMS_ITS | Patient Health Record ---
Author [facility] Address [address] [place] [address] Care Team Providers Care Clothing And Textiles Teacher Name Role Phone Shyla GARCIA, Chela Hassan Primary Care Provider Un available Lisette Hong Unavailable [phone] Allergies Allergen (clinical drug ingredient) Drug/Non Drug [...] days 11/05/2016 Not-Taking Wixela Inhub Active Nystatin-Triamcinolone 171432-1.1 UNIT/GM-% 1 application to affected area Externally [...] Risk Notes Problem Mononeuropathy of lower limb ([id number]) Neuritis of left foot (G57.92) Active confirmed Vital Signs Blood pressure diastolic 70 mm Hg 11/19/2024 Height 5ft 8in in 11/19/2024 Blood pressure systolic 172 mm Hg 11/19/2024 Weight 150 lbs 11/19/2024 BMI 22.8 kg/m2 11/19/2024 Encounters Encounter Location Date Provider Diagnosis [address] [address] 03/10/2024 Lisette Perica Tinea unguium B35.1 ; Xerosis of skin L85.3 ; Pain in right toe(s) M79.674 and Pain in left toe(s) M79.[address] [address] 06/09/2024 Lisette Perica Xerosis of skin L85. 3 ; Neuritis of left foot G57.92 ; Tinea unguium B35.1 ; Pain in right toe(s) M79.674 ; Pain in left toe(s) M79.675 ; Pain in left foot M79.672 and Lower extremity edema R60.[address] [address] 11/19/2024 Lisette Perica Pain in right toe(s) M79.674 ; Onychomycosis B35.1 and Pain in left toe(s) M79.[address] [address] 06/15/2024 Lisette Perica Assessments Encounter Date Diagnosis [...] X ray : Ankle, left 3V 12/12/2015 [id number] NAIL, 6 OR MORE 01/09/2016 [id number] NAIL, 6 OR MORE 04/09/2016 [id number] NAIL, 6 OR MORE 08/06/2016 [id number] NAIL, 6 OR MORE 11/05/2016 [id number] NAIL, 6 OR MORE 02/04/2017 [id number] NAIL, 6 OR MORE 05/06/2017 [id number] NAIL, 6 OR MORE 08/05/2017 [id number] NAIL, 6 OR MORE 11/04/2017 [id number] NAIL, 6 OR MORE 02/03/2018 [id number] NAIL, 6 OR MORE 04/28/2018 [id number] NAIL, 6 OR MORE 07/25/2015 [id number] NAIL, 6 OR MORE 10/31/2015 [id number] Destruction, 1-14 11/05/2016 Next Appt Details Provider Name:Lisette norman, 03/01/2025 09:30:00 AM, [address] [facility], [place], [address], Insurance Providers Payer Name Payer Address Payer Phone Subscriber Number Group Number Insured Name Patient Relationship to Insured Coverage Start Date Coverage End Date Medicare National [facility] [address] [facility] [place] [address] [id number] Juve Eaton Self - patient is the insured [employer] [address] [place] [address] [id number] Juve Eaton Self - patient is the [...]
--- OUTSIDE RECORDS SUMMARY | 2025-02-03 10:39 | XMS_ITS | Clinical Summary ---
Author Organization [facility] Address [address] [place] [address] Care Team Providers Care Lgsw Name Role Phone Chela Mansfield MD Primary [...] Encounters Date Type Department Care Team Description 01/24/2025 Telephone [facility] Neurosurgery [address] [place] [phone] Janelle Grande RN 12/15/2024 Telephone [facility] Neurosurgery [address] [place] [phone] Janelle Grande RN 12/14/2024 2:00 PM EDT Office Visit [facility] Neurology [address] [place] [phone] Frankie Guerra MD Essential tremor (Primary Dx) [...] Care Team (Late st Contact Info) Description 06/21/2025 1:00 PM EST Office Visit [facility] Neurology [address] [place] [phone] Rocio Acosta PA-C [address] [address] Health Maintenance Due Date Last Done Comments Advance Care Planning 1945 Hepatitis C Virus Screening 1945 COVID-19 Vaccine (#1) 1952 DTaP/Tdap/Td Vaccines (1 - Tdap) 1966 Pneumococcal Vaccines 50+ (1 of 2 - PCV) 1966 Zoster (Shingles) Vaccine (1 of 2) 1966 RSV Vaccine 50 years and old er and Patients (1 - 1-dose 75+ series) 2022 Influenza Vaccine 11/19/2024 Hepatitis B Vaccines Aged Out No long er eligible based on patient's age to complete this topic Insurance [address] [place] [address] MEDICARE PART A & B [facility] Care Teams Lgsw Relationship Specialty Start Date End Date Chela Mansfield MD [address] [place] [address] PCP - General Internal Medicine 08/03/24
== END 2025-02-03 10:28 | disposition home or self-care (01) ==
LOC: HO.HMCC 09:23
PROVIDERS: PCP Internal Medicine; Visit Provider Internal Medicine
DX: Z00.00 Encounter for general adult medical examination without abnormal findings (principal); I10 Essential (primary) hypertension; H40.9 Unspecified glaucoma; N40.0 Benign prostatic hyperplasia without lower urinary tract symptoms; D30.00 Benign neoplasm of unspecified kidney; J45.20 Mild intermittent asthma, uncomplicated; L40.9 Psoriasis, unspecified

== ENCOUNTER → 2025-02-03 09:22 | Outpatient (BNVA) | payer MEDICARE, SELFPAY | PROVIDERS: PCP Internal Medicine; Visit Provider Internal Medicine | DX: Z00.00 Encounter for general adult medical examination without abnormal findings (principal); I10 Essential (primary) hypertension; H40.9 Unspecified glaucoma; N40.0 Benign prostatic hyperplasia without lower urinary tract symptoms; D30.00 Benign neoplasm of unspecified kidney; J45.20 Mild intermittent asthma, uncomplicated; L40.9 Psoriasis, unspecified | CPT/HCPCS: 96127 ==